=== PATIENT | female | born 1960 ===

== ENCOUNTER 2017-07-26 18:24 | Emergency (ER) | payer SELFPAY ==
[2017-07-26 18:30] VITALS: BP 130/87; PULSE 89; RESP 20; TEMP 97.8; O2SAT 98
[2017-07-26] MEDS ORDERED: Bacitracin 500 Units/gm Oint Foilpak UD TOP ONE (18:56)
[2017-07-26] MEDS ORDERED: Lidocaine 1% Inj (20ml) INFIL ONE (18:56)
[2017-07-26] MEDS ORDERED: Bacitracin 500 Units/gm Oint Foilpak UD ONE ×2 (19:11→19:50)
[2017-07-26] MEDS ORDERED: Lidocaine 1% Inj (20ml) ONE (19:11)
--- NOTE | 2017-07-26 19:20 | C.PDOC ---
History Of Present Illness 57 year old female presents to the ED due to a laceration to left hand just prior to arrival. Patient reports she was cutting fish when the knife slipped and cut her left second finger. Patient denies change in sensation. Patient is up to date on tetanus. Patient is right hand dominant. Time Seen by Provider: 07/26/17 18:32 Chief Complaint (Nursing): Abnormal Skin Integrity History Per: Patient History/Exam Limitations: no limitations Onset/Duration Of Symptoms: Mins Current Symptoms Are (Timing): Still Present Location Of Injury: Left: Hand (laceration to second finger) Quality Of Symptoms: Other (laceration) Past Medical History Reviewed: Historical Data, Nursing Documentation, Vital Signs Vital Signs: Last Vital Signs Temp 97.8 F 07/26/17 18:29 Pulse 89 07/26/17 18:29 Resp 20 07/26/17 18:29 BP 130/87 07/26/17 18:29 Pulse Ox 98 07/26/17 19:47 - Medical History PMH: No Chronic Diseases Family History: States: No Known Family Hx - Social History Hx Alcohol Use: No Hx Substance Use: No - Immunization History Hx Tetanus Toxoid Vaccination: Yes (LAST YEAR 2015 PER PATIENT) Hx Influenza Vaccination: No Hx Pneumococcal Vaccination: No Review Of Systems Except As Marked, All Systems Reviewed And Found Negative. Constitutional: Negative for: Fever Skin: Positive for: Other (laceration to left second finger) Physical Exam - Physical Exam Appears: Well, No Acute Distress Skin: Warm, Dry, Other ((+) U shaped 2cm laceration to dorsal aspect of second finger on left hand) Head: Atraumatic, Normacephalic Eye(s): bilateral: Normal Inspection, EOMI Nose: Normal Oral Mucosa: Moist Chest: Symmetrical Respiratory: No Accessory Muscle Use Extremity: Normal ROM, Capillary Refill (<2 sec), No Swelling Pulses: Left Radial: Normal, Right Radial: Normal Neurological/Psych: Oriented x3, Normal Speech ED Course And Treatment O2 Sat by Pulse Oximetry: 98 (RA) Progress Note: Plan: --Bacitracin. --600mg Ibuprofen. --10mL Lidocaine 1%. Discussed wound care. Finger splint applied by RN. Procedure: Wound Repair - Time Performed Time Performed: 19:26 - Procedure Procedure: Wound Repair: stiches - Consent Obtained Consent obtained: Verbal - Performed by Performed by: Mid-level Provider - Indications Indication(s):: Laceration - Location Location:: Left, Hand Finger:: Left, Index Dimensions Length cm: 2cm - Anesthetic Technique Anesthetic Technique: Local Local/Regional Anesthetic:: Lidocaine 1% - Complexity Complexity:: Simple (one layer) - Wound repair method Sutures:: # (3), Size (5:0), Type (nylon), Technique (simple interrupted) - Patient tolerated procedure Patient Tolerated Procedure:: Well Disposition - Disposition Disposition: HOME/ ROUTINE Disposition Time: 19:46 Condition: STABLE Additional Instructions: Keep area clean and dry. Wound check in 2 days. Suture removal in 10 days. Instructions: Laceration (ED) Forms: [employer] (Macedonian) Print Language: LUXEMBOURGISH - Clinical Impression Clinical Impression: Laceration of finger - Scribe Statement The provider has reviewed the documentation as recorded by the Jw Balbuena Provider Attestation All medical record entries made by the Jw were at my direction and personally dictated by me. I have reviewed the chart and agree that the record accurately reflects my personal performance of the history, physical exam, medical decision making, and the department course for this patient. I have also personally directed, reviewed, and agree with the discharge instructions and disposition.
== END 2017-07-26 19:55 | disposition home or self-care (01) ==
LOC: C.ER 18:24
DX: S61.211A Laceration without foreign body of left index finger without damage to nail, initial encounter (principal); W26.0XXA Contact with knife, initial encounter; Y93.89 Activity, other specified

== ENCOUNTER 2017-07-28 13:21 | Emergency (ER) | payer SELFPAY ==
[2017-07-28 13:49] VITALS: BP 128/70; PULSE 70; RESP 16; TEMP 97.2; O2SAT 97
--- NOTE | 2017-07-28 14:20 | C.PDOC ---
History Of Present Illness 57yo female, presents to ED for a wound check. Patient was seen in this facility 2 days ago and had sutures placed to her left 2nd digit. She denies any drainage, redness to the area. No complaints. Chief Complaint (Nursing): Wound Check History Per: Patient History/Exam Limitations: no limitations Onset/Duration Of Symptoms: Days Ago (2) Current Symptoms Are (Timing): Still Present Location Of Injury: Left: Hand Quality Of Symptoms: denies: Swollen, Draining Past Medical History Reviewed: Historical Data, Nursing Documentation, Vital Signs Vital Signs: Last Vital Signs Temp 97.2 F L 07/28/17 13:47 Pulse 70 07/28/17 13:47 Resp 16 07/28/17 13:47 BP 128/70 07/28/17 13:47 Pulse Ox 97 07/28/17 14:19 - Medical History PMH: No Chronic Diseases Surgical History: No Surg Hx Family History: States: No Known Family Hx - Social History Hx Alcohol Use: No Hx Substance Use: No - Immunization History Hx Tetanus Toxoid Vaccination: Yes (LAST YEAR 2015 PER PATIENT) Hx Influenza Vaccination: No Hx Pneumococcal Vaccination: No Review Of Systems Musculoskeletal: Positive for: Hand Pain (suture wound to left 2nd digit) Physical Exam - Physical Exam Appears: Well, No Acute Distress Skin: Normal Color Extremity: Normal ROM, No Deformity, No Swelling, Other (healing sutured wound to dorsal PIP of left 2nd digit. no signs of infection noted.) ED Course And Treatment O2 Sat by Pulse Oximetry: 97 (RA) Pulse Ox Interpretation: Normal Progress Note: Patient with well healing suture site. Stable for discharge home. Disposition Counseled Patient/Family Regarding: Need For Followup - Disposition Referrals: [facility] at [facility] [Outside] Disposition: HOME/ ROUTINE Disposition Time: 14:00 Condition: STABLE Additional Instructions: Have sutures removed after 5 days, continue to keep the wound clean. Clean with regular soap and water. Instructions: Acute Wound Care (ED) Forms: [facility] (Frisian), Work Excuse Print Language: TAJIK - Clinical Impression Clinical Impression: Visit for wound check - PA / KEY ACCOUNT EXECUTIVE / Resident Statement MD/DO has reviewed & agrees with the documentation as recorded. - Scribe Statement The provider has reviewed the documentation as recorded by the Jw Arellano Provider Attestation: All medical record entries made by the Scribe were at my direction and personally dictated by me. I have reviewed the chart and agree that the record accurately reflects my personal performance of the history, physical exam, medical decision making, and the department course for this patient. I have also personally directed, reviewed, and agree with the discharge instructions and disposition.
== END 2017-07-28 14:55 | disposition home or self-care (01) ==
LOC: C.ER 13:21
DX: Z48.00 Encounter for change or removal of nonsurgical wound dressing (principal)

== ENCOUNTER 2017-08-03 14:45 | Emergency (ER) | payer SELFPAY ==
[2017-08-03 15:16] VITALS: BMI 36.6
[2017-08-03 15:18] VITALS: RESP 18; TEMP 97.4
[2017-08-03 16:23] VITALS: BP 109/72; PULSE 72; O2SAT 99
--- NOTE | 2017-08-03 16:29 | C.PDOC ---
History Of Present Illness 57 year old female presents to the ED for a wound check. Patient was evaluated in this ED on 07/26 for a finger laceration which she sustained from a knife. Patient had sutures placed in the ED. Patient states one of the sutures fell out on its own. Patient denies fever, chills, discharge. Time Seen by Provider: 08/03/17 15:58 Chief Complaint (Nursing): Wound Check History Per: Patient History/Exam Limitations: no limitations Onset/Duration Of Symptoms: Days Ago Current Symptoms Are (Timing): Still Present Location Of Injury: Left: Hand Quality Of Symptoms: denies: Painful, Swollen, Draining Additional History Per: Patient Past Medical History Reviewed: Historical Data, Nursing Documentation, Vital Signs Vital Signs: Last Vital Signs Temp 97.4 F L 08/03/17 15:17 Pulse 72 08/03/17 16:22 Resp 18 08/03/17 16:22 BP 109/72 08/03/17 16:22 Pulse Ox 99 08/03/17 17:15 - Medical History PMH: No Chronic Diseases Surgical History: No Surg Hx Family History: States: Unknown Family Hx - Social History Hx Alcohol Use: No Hx Substance Use: No - Immunization History Hx Tetanus Toxoid Vaccination: Yes (LAST 2015 PER PATIENT) Hx Influenza Vaccination: No Hx Pneumococcal Vaccination: No Review Of Systems Skin: Positive for: Other (wound check ) Physical Exam - Physical Exam Appears: Non-toxic, No Acute Distress Skin: Normal Color, Warm, Dry, Other (healing sutured wound to lateral PIP of left 2nd digit. u-shaped healing incision with sutures intact on either end. none in middle. no erythema, warmth or signs of infection noted ) Extremity: Normal ROM, Capillary Refill (less than 2 seconds ) Neurological/Psych: Oriented x3, Normal Speech, Normal Cognition, Normal Sensation Gait: Steady ED Course And Treatment O2 Sat by Pulse Oximetry: 99 (on RA ) Pulse Ox Interpretation: Normal Progress Note: sutures removed without difficulty. slight dehiscence noted at one end. steri strips applied. Disposition - Disposition Disposition: HOME/ ROUTINE Disposition Time: 16:26 Condition: STABLE Additional Instructions: Puede lavarse las warren y baarse normalmente con las esteri strips puestas. Se caen solos en unos pocos de paz, permitiendo que la herida termine de cicatrizar. You can wash your hands and bathe as normal with the steri strips on. They will fall off on their own in a few days, allowing wound to finish healing Instructions: Stitches Removal (ED), Steristrips (ED) Forms: [employer] (French) Print Language: DOMINICAN - Clinical Impression Clinical Impression: Encounter for removal of sutures - PA / OUTREACH ASSISTANT / Resident Statement MD/DO has reviewed & agrees with the documentation as recorded. - Scribe Statement The provider has reviewed the documentation as recorded by the Scribe (Marielena Hall) All medical record entries made by the Scribe were at my direction and personally dictated by me. I have reviewed the chart and agree that the record accurately reflects my personal performance of the history, physical exam, medical decision making, and the department course for this patient. I have also personally directed, reviewed, and agree with the discharge instructions and disposition.
== END 2017-08-03 16:34 | disposition home or self-care (01) ==
LOC: C.ER 14:45
DX: Z48.02 Encounter for removal of sutures (principal)

== ENCOUNTER 2018-01-23 15:57 | Emergency (ER) | payer OTHER ==
[2018-01-23 15:58] VITALS: BMI 36.6
[2018-01-23 16:23] VITALS: RESP 20
[2018-01-23 16:59] LABS: BASO # 0.1 K/uL (0.0-0.2); BASO % 0.7 % (0.0-2.0); EOS # 0.2 K/uL (0.0-0.7); HEMOGLOBIN 12.8 g/dL (11.0-16.0); LYMPH % 27.8 % (20.0-40.0); MEAN CELL VOLUME 84.7 fL (81.0-99.0); MEAN CORPUSCULAR HEMOGLOBIN 28.8 pg (27.0-31.0); MEAN PLATELET VOLUME 8.5 fL (7.2-11.7); MONO # 0.8 K/uL (0.0-0.8); MONO % 6.9 % (0.0-10.0); NEUT # 6.8 K/uL (1.8-7.0); NEUT % 62.6 % (50.0-75.0); RBC 4.47 Mil/uL (3.80-5.20); RED CELL DISTRIBUTION WIDTH 15.2 % (11.5-14.5); WHITE BLOOD COUNT 10.9 K/uL (4.8-10.8)
[2018-01-23 17:17] LABS: ALT/SGPT 51 U/L (9-52); AST/SGOT 36 U/L (14-36); BLOOD UREA NITROGEN 9 mg/dL (7-17); CALCIUM 8.8 mg/dl (8.6-10.4); GFR AFRICAN-AMERICAN > 60; GFR NON-AFRICAN AMERICAN > 60; LIPASE 67 U/L (23-300)
[2018-01-23 17:28] LABS: SQUAMOUS EPITHIAL 1 /hpf (0-5); URINE BILIRUBIN NEGATIVE (NEGATIVE); URINE BLOOD 1+ (NEGATIVE); URINE CLARITY Clear (Clear); URINE COLOR Yellow (YELLOW); URINE GLUCOSE (UA) NORMAL (Normal); URINE LEUKOCYTE ESTERASE NEG Leu/uL (Negative); URINE PROTEIN NEGATIVE (NEGATIVE); URINE UROBILINOGEN NORMAL mg/dL (0.2-1.0)
--- NOTE | 2018-01-23 18:14 | CT ---
EXAM: CT Head Without Intravenous Contrast EXAM DATE/TIME: 01/23/2018 4:48 PM CLINICAL HISTORY: 57 years old, female; Signs and symptoms; Dizziness TECHNIQUE: Axial computed tomography images of the head/brain without intravenous contrast. All CT scans at this facility use one or more dose reduction techniques, viz.: automated exposure control; ma/kV adjustment per patient size (including targeted exams where dose is matched to indication; i.e. head); or iterative reconstruction technique. Coronal and sagittal reformatted images were created and reviewed. COMPARISON: There are no prior studies for comparison. FINDINGS: Brain and ventricles: Ventricles are normal in size and configuration. There is no midline shift. There are no intra-axial or extra-axial mass lesions or areas of hemorrhage. There are no abnormal fluid collections. Harrison-white differentiation is maintained. Bones: Cranial vault is intact. Soft tissues: unremarkable Sinuses: There is no acute sinusitis. Ears and mastoids: Middle ears and mastoids are unremarkable Orbits: Orbital contents are unremarkable. IMPRESSION: No acute intracranial abnormality
--- NOTE | 2018-01-23 18:30 | C.PDOC ---
History Of Present Illness 57 y/o female presents to the ED complaining of a generalized headache with gradual onset over the past few days. No thunder clap onset. Of note, patient states this is not the worst headache of her life. She denies any fever, chills , neck pain/stiffness, chest pain, or SOB. Associated with a non-productive cough and dizziness (described as room spinning) for the past 2 days. Her dizziness has not been relieved with Dramamine. Patient reports having similar symptoms intermittently for the past 3 months. Time Seen by Provider: 01/23/18 16:33 Chief Complaint (Nursing): Dizziness/Lightheaded History Per: Patient History/Exam Limitations: no limitations Onset/Duration Of Symptoms: Days Current Symptoms Are (Timing): Still Present Past Medical History Reviewed: Historical Data, Nursing Documentation, Vital Signs Vital Signs: Last Vital Signs Temp 98.6 F 01/23/18 18:44 Pulse 70 01/23/18 18:44 Resp 20 01/23/18 18:44 BP 118/78 01/23/18 18:44 Pulse Ox 96 01/23/18 18:46 - Medical History PMH: Arthritis Family History: States: Unknown Family Hx - Social History Hx Alcohol Use: Yes Hx Substance Use: No - Immunization History Hx Tetanus Toxoid Vaccination: Yes (2016) Hx Influenza Vaccination: No Hx Pneumococcal Vaccination: No Review Of Systems Except As Marked, All Systems Reviewed And Found Negative. Neurological: Positive for: Headache, Dizziness Physical Exam - Physical Exam Appears: Non-toxic, No Acute Distress Skin: Normal Color, Warm, Dry Head: Atraumatic, Normacephalic Eye(s): bilateral: Normal Inspection, PERRL, EOMI Nose: Normal Oral Mucosa: Moist Neck: Normal ROM, Supple, Other (No meningeal signs) Chest: Symmetrical Cardiovascular: Rhythm Regular, No Murmur Respiratory: Normal Breath Sounds, No Rales, No Rhonchi, No Wheezing Gastrointestinal/Abdominal: Soft, No Tenderness, No Distention Extremity: Bilateral: Atraumatic, Normal Color And Temperature, Normal ROM Pulses: Left Dorsalis Pedis: Normal, Right Dorsalis Pedis: Normal Neurological/Psych: Oriented x3, Normal Speech, Normal Cranial Nerves, Cerebellar Signs (normal), Normal Motor, Normal Sensation, Other (No focal deficits) Gait: Steady ED Course And Treatment - Laboratory Results Result Diagrams: 01/23/18 16:56 01/23/18 16:56 ECG: Interpreted By Me, Viewed By Me ECG Rhythm: Sinus Rhythm (at 79 bpm, with normal intervals, normal axis, no ST/ T wave abnormalities) O2 Sat by Pulse Oximetry: 96 (RA) Pulse Ox Interpretation: Normal Medical Decision Making Medical Decision Making: Assessment: Dizziness, Headache Initial Plan: --EKG --CMP --CBC --Lipase --Troponin I --UA --Chest x-ray --Meclizine 25 mg PO --Tylenol 975 mg PO --Zithro 500 mg PO --Zofran 4 mg IV --CT Head w/o contrast CXR preliminary reading shows (+) interstitial changes, low lung volumes, poor respiratory effort. Labs reviewed, no clinically significant abnormalities. Patient will be discharged home. Counseled regarding dx of dizziness and bronchitis. Advised to f/u with PMD in 1-2 days. Disposition Counseled Patient/Family Regarding: Studies Performed, Diagnosis, Need For Followup, Rx Given - Disposition Referrals: [facility] [Outside] Disposition: HOME/ ROUTINE Disposition Time: 18:28 Condition: IMPROVED Additional Instructions: follow up with your doctor in 2 days call to make an appointment take medications as prescribed return to hospital if symptoms worsens or progress Prescriptions: Azithromycin [Zithromax] 250 mg PO DAILY #4 tab Meclizine [Meclizine*] 25 mg PO TID PRN #15 tab PRN Reason: Dizziness Ondansetron ODT [Zofran ODT] 4 mg PO TID PRN #12 odt PRN Reason: Nausea/Vomiting Instructions: Vertigo (a Type of Dizziness) (DC), Acute Bronchitis Forms: Gen Discharge Inst Paraguayan, [facility] (Paraguayan) - POA Present On Arrival: None - Clinical Impression Clinical Impression: Dizziness, Bronchitis - Scribe Statement The provider has reviewed the documentation as recorded by the Scribe (Kourtney Sotelo) Provider Attestation: All medical record entries made by the Scribe were at my direction and personally dictated by me. I have reviewed the chart and agree that the record accurately reflects my personal performance of the history, physical exam, medical decision making, and the department course for this patient. I have also personally directed, reviewed, and agree with the discharge instructions and disposition.
[2018-01-23 18:45] VITALS: BP 118/78; PULSE 70; TEMP 98.6; O2SAT 96
--- NOTE | 2018-01-24 08:13 | RAD ---
Chest x-ray two views History: Chest pain. Comparison: None available. Findings: Mild venous congestion. Right hilar prominence. Patchy increased markings at left lung base. Tortuous aorta. Mild cardiomegaly. Degenerative changes spine. Impression: Mild venous congestion. Right hilar prominence. Patchy increased markings at left lung base. Tortuous aorta. Mild cardiomegaly.
--- NOTE | 2018-01-26 13:40 | CARD ---
APPROVED REPORT EKG Measurement Heart [id number] <Conclusion> Normal sinus rhythm Normal ECG
== END 2018-01-23 18:45 | disposition home or self-care (01) ==
LOC: C.ER 15:57
DX: J40 Bronchitis, not specified as acute or chronic (principal); R42 Dizziness and giddiness
CPT/HCPCS: 70450; 71046; 80053; 81001; 82948; 83690; 84484; 85025; 96374; 99285; J2405

== ENCOUNTER 2018-03-13 14:34 | Emergency (ER) | payer OTHER ==
[2018-03-13 14:41] VITALS: BMI 28.7
[2018-03-13 14:42] VITALS: BP 114/73; PULSE 61; RESP 20; TEMP 98.7; O2SAT 97
[2018-03-13] MEDS ORDERED: Lidocaine 2% Inj (20ml) INFIL ONE (15:11)
[2018-03-13] MEDS ORDERED: Lidocaine 2% MPF (5 ml) Inj ONE (15:23)
--- NOTE | 2018-03-13 15:47 | C.PDOC ---
History Of Present Illness 58 year old female patient comes in for evaluation of right buttock painful mass , redness gradually developed for past 5 days. Patient reports similar symptoms in the past, but were resolved without intervention. Otherwise, Patient denies fever, chills, recent illness, known trauma or injury, abdominal pain, nausea, and vomiting change in BM. Ambulate to Ed for evaluation, not in any apparent distress. Time Seen by Provider: 03/13/18 15:01 Chief Complaint (Nursing): Abnormal Skin Integrity History Per: Patient History/Exam Limitations: no limitations Onset/Duration Of Symptoms: Days, Gradual Current Symptoms Are (Timing): Still Present Past Medical History Reviewed: Historical Data, Nursing Documentation, Vital Signs Vital Signs: Last Vital Signs Temp 98.7 F 03/13/18 14:41 Pulse 61 03/13/18 14:41 Resp 20 03/13/18 14:41 BP 114/73 03/13/18 14:41 Pulse Ox 97 03/13/18 15:52 - Medical History PMH: Arthritis Family History: States: Unknown Family Hx - Social History Hx Alcohol Use: Yes Hx Substance Use: No - Immunization History Hx Tetanus Toxoid Vaccination: Yes (2016) Hx Influenza Vaccination: No Hx Pneumococcal Vaccination: No Review Of Systems Except As Marked, All Systems Reviewed And Found Negative. Constitutional: Negative for: Fever, Chills Gastrointestinal: Negative for: Nausea, Vomiting Musculoskeletal: Negative for: Other (abdominal pain) Physical Exam - Physical Exam Appears: Well, Non-toxic, No Acute Distress Skin: Normal Color, Warm, Other (Right gluteal tender mass 3 cm diameter, (+) erythema, (+) flactualnce, No proximal streaking.) Head: Normacephalic Eye(s): bilateral: PERRL Gastrointestinal/Abdominal: Soft, No Tenderness, No Distention, No Guarding Back: No CVA Tenderness Extremity: Normal ROM, No Pedal Edema, No Swelling ED Course And Treatment O2 Sat by Pulse Oximetry: 97 (RA) Pulse Ox Interpretation: Normal Progress Note: On re-eavl, pt is afebrile, hemodynamicaly stable. NO-toxic. Abd: benign, (-) guarding, (-) rebound. back: (-) CVA tenderness. Skin: exam c /w Right gluteal abscess s/p I&D. Pt advised. ref. to f/u with ED in 2 days for re-eval. - Incision & Drainage Of Abscess Anesthesia: Lidocaine 2%, With Epi Prep Used: Betadine Procedure: Incised W/Scalpel Blade#: (11), Drained Pus, Irrigated Cavity W/ Saline (10ml), Probed To Break Up Loculations, Packed W/Gauze Disposition Counseled Patient/Family Regarding: Diagnosis, Need For Followup, Rx Given - Disposition Referrals: [facility] at [facility] [Outside] Disposition: HOME/ ROUTINE Disposition Time: 15:46 Condition: STABLE Additional Instructions: keep clean Take medication as prescribed Return to ED in 2 days for wound check. Return at any time if any worsening or new changes. Prescriptions: Doxycycline Hyclate [Doryx] 100 mg PO BID #14 cap Instructions: Skin Abscess, Abscess Incision and Drainage Forms: [employer] (Czech) Print Language: GHANAIAN - Clinical Impression Clinical Impression: Abscess - PA / OINTMENT MILL TENDER / Resident Statement / has reviewed & agrees with the documentation as recorded. - Scribe Statement The provider has reviewed the documentation as recorded by the Jw Lowery Do All medical record entries made by the Scribe were at my direction and personally dictated by me. I have reviewed the chart and agree that the record accurately reflects my personal performance of the history, physical exam, medical decision making, and the department course for this patient. I have also personally directed, reviewed, and agree with the discharge instructions and disposition.
--- NOTE | 2018-03-13 15:47 | C.PDOC ---
History Of Present Illness 58 year old female patient comes in for evaluation of right buttock pain and swelling for past 5 days. Patient reports similar symptoms in the past, but were resolved without intervention. Patient denies fever, chills, abdomen pain, nausea, and vomiting. Time Seen by Provider: 03/13/18 15:01 Chief Complaint (Nursing): Abnormal Skin Integrity History Per: Patient History/Exam Limitations: no limitations Onset/Duration Of Symptoms: Days, Gradual Current Symptoms Are (Timing): Still Present Past Medical History Reviewed: Historical Data, Nursing Documentation, Vital Signs Vital Signs: Last Vital Signs Temp 98.7 F 03/13/18 14:41 Pulse 61 03/13/18 14:41 Resp 20 03/13/18 14:41 BP 114/73 03/13/18 14:41 Pulse Ox 97 03/13/18 15:47 - Medical History PMH: Arthritis Family History: States: Unknown Family Hx - Social History Hx Alcohol Use: Yes Hx Substance Use: No - Immunization History Hx Tetanus Toxoid Vaccination: Yes (2015) Hx Influenza Vaccination: No Hx Pneumococcal Vaccination: No ED Course And Treatment O2 Sat by Pulse Oximetry: 97 Disposition - Disposition Forms: [email or web address] (Korean)
== END 2018-03-13 15:53 | disposition home or self-care (01) ==
LOC: C.ER 14:34
DX: L02.31 Cutaneous abscess of buttock (principal)

== ENCOUNTER 2018-03-14 16:24 | Observation (INO) | payer OTHER ==
[2018-03-14 16:24] VITALS: BMI 28.7
--- NOTE | 2018-03-14 16:50 | C.PDOC ---
History Of Present Illness 58 year old female presents to the ED for an evaluation of abscess to right buttock. Patient was seen yesterday in the ED due to tender mass and abscess, I &D done and packing placed. Patient complains of increased pain, swelling, blood oozing, and subjective fever overnight. Time Seen by Provider: 03/14/18 16:36 Chief Complaint (Nursing): Wound Check History Per: Patient History/Exam Limitations: no limitations Onset/Duration Of Symptoms: Abscess Location Of Injury: Right: Buttock Quality Of Symptoms: Painful Past Medical History Reviewed: Historical Data, Nursing Documentation, Vital Signs Vital Signs: Last Vital Signs Temp 98.2 F 03/14/18 16:30 Pulse 96 H 03/14/18 16:30 Resp 18 03/14/18 16:30 BP 109/72 03/14/18 16:30 Pulse Ox 99 03/14/18 19:23 - Medical History PMH: Arthritis, Bronchitis Other Surgeries: Hx of surgeries Family History: States: No Known Family Hx - Social History Hx Alcohol Use: No Hx Substance Use: No - Immunization History Hx Tetanus Toxoid Vaccination: Yes (2015) Hx Influenza Vaccination: No Hx Pneumococcal Vaccination: No Review Of Systems Constitutional: Positive for: Fever Skin: Positive for: Other (Swelling and pain to right buttock ) Physical Exam - Physical Exam Appears: Non-toxic, No Acute Distress Skin: Warm, Dry, Other (Diffused erythema and tenderness to right gluteus. Small incision noted in the mittle with packing inside. (-) flactuance) Head: Atraumatic, Normacephalic Eye(s): bilateral: PERRL Chest: Symmetrical Cardiovascular: Rhythm Regular Respiratory: Normal Breath Sounds, No Rales, No Rhonchi, No Wheezing Extremity: Normal ROM Neurological/Psych: Oriented x3, Normal Speech Gait: Steady ED Course And Treatment - Laboratory Results Result Diagrams: 03/14/18 17:20 03/14/18 17:20 Lab Interpretation: No Acute Changes O2 Sat by Pulse Oximetry: 99 (RA) Pulse Ox Interpretation: Normal - CT Scan/US CT abd/pelvis Other Rad Studies (CT/US): Radiology Report Reviewed CT/US Interpretation: EXAM: CT Abdomen and Pelvis With Intravenous Contrast. EXAM DATE/TIME: Exam ordered 03/14/2018 4:55 PM. CLINICAL HISTORY: 58 years old, female; Pain; Other: Rt gluteal abscess; Additional info: Right gluteal abscess. TECHNIQUE: Axial computed tomography images of the abdomen and pelvis with intravenous contrast. All CT. scans at this facility use at least one of these dose optimization techniques: automated exposure. control; mA and/ or kV adjustment per patient size (includes targeted exams where dose is matched to. clinical indication); or iterative reconstruction. Coronal and sagittal reformatted images were created and reviewed. CONTRAST: 100 mL of [id number] administered intravenously. COMPARISON: No relevant prior studies available. FINDINGS: Lung bases: Unremarkable. No mass. No consolidation. ABDOMEN: Liver: The liver is low in density. Gallbladder and bile ducts: Unremarkable. No calcified stones. No ductal dilation. Pancreas: There is an island of fat noted within the pancreatic head. It measures 1.2 cm by 0.8 x 1.3. cm. . No mass. No ductal dilation. Spleen: Unremarkable. No splenomegaly. Adrenals: Unremarkable. No mass. Kidneys and ureters: Unremarkable. No solid mass. No hydronephrosis. Stomach and bowel: Unremarkable. No obstruction. No mucosal thickening. PELVIS: Appendix: No findings to suggest acute appendicitis. Bladder: There is a small linear area of soft tissue thickening which extends from the posterior wall. of the proximal rectum into the presacral space. Inferior to this is a bubble of air noted within the. buttock amidst an area of prominent inflammation. Small bubble of air is noted within the bladder. Reproductive: Unremarkable as visualized. ABDOMEN and PELVIS: Intraperitoneal space: Unremarkable. No free air. No significant fluid collection. Bones/joints: No acute fracture. No dislocation. Soft tissues: There is edema noted within the subcutaneous fat of the right buttock. The edema. appears to involve the medial border of the gluteus alona muscle. Vasculature: Unremarkable. No abdominal aortic aneurysm. Lymph nodes: Unremarkable. No enlarged lymph nodes. IMPRESSION: 1. There is inflammation in the right buttock as described above with a small bubble of air consistent. with clinical history of abscess. No fluid collections seen. Small linear track extending from the. posterior wall of the rectum to the presacral space could represent inflammation but a fistula tract is. not excluded. 2. Hepatic steatosis. 3. Lipoma within the pancreas. Thank you for allowing us to participate in the care of your patient. Dictated and Authenticated by: Sayda Costello MD. 03/14/2018 7:37 PM Eastern Time ( [place] & [place]) Disposition - Disposition Disposition: HOME/ ROUTINE Disposition Time: 19:23 Condition: STABLE Forms: [facility] (Nigerian) - Clinical Impression Clinical Impression: Abscess, gluteal, right, Cellulitis and abscess of buttock - PA / CAR SUPPLIER / Resident Statement MD/DO has reviewed & agrees with the documentation as recorded. - Scribe Statement The provider has reviewed the documentation as recorded by the Scribe Olga Lidia Collins All medical record entries made by the Ivonneibbarry were at my direction and personally dictated by me. I have reviewed the chart and agree that the record accurately reflects my personal performance of the history, physical exam, medical decision making, and the department course for this patient. I have also personally directed, reviewed, and agree with the discharge instructions and disposition.
[2018-03-14] MEDS ORDERED: Sodium Chloride 0.9% 1,000 ML IV ONE (16:54)
[2018-03-14] MEDS ORDERED: Vancomycin 1 GM 1 GM/250 ML BAG IV SCH (17:00)
[2018-03-14 17:29] LABS: HEMOGLOBIN 12.1 g/dL (11.0-16.0); MEAN CELL VOLUME 85.9 fL (81.0-99.0); MEAN CORPUSCULAR HEMOGLOBIN 27.9 pg (27.0-31.0); MEAN CORPUSCULAR HGB CONC 32.4 g/dL (33.0-37.0); MEAN PLATELET VOLUME 8.6 fL (7.2-11.7); NEUT % 61.8 % (50.0-75.0); RBC 4.34 Mil/uL (3.80-5.20); RED CELL DISTRIBUTION WIDTH 15.7 % (11.5-14.5); WHITE BLOOD COUNT 10.2 K/uL (4.8-10.8)
[2018-03-14 17:30] LABS: BASO # 0.1 K/uL (0.0-0.2); BASO % 0.5 % (0.0-2.0); EOS # 0.2 K/uL (0.0-0.7); EOS % 1.7 % (0.0-4.0); LYMPH # 2.7 K/uL (1.0-4.3); LYMPH % 26.4 % (20.0-40.0); MONO % 9.6 % (0.0-10.0); NEUT # 6.3 K/uL (1.8-7.0); NRBC % 0.1 % (0.0-2.0)
[2018-03-14] MEDS: Vancomycin 1 gm/NS 200 ml 1 GM/200 ML BAG IVPB SCH (17:30)
[2018-03-14 17:34] LABS: SQUAMOUS EPITHIAL 2 /hpf (0-5); URINE BILIRUBIN NEGATIVE (NEGATIVE); URINE BLOOD 1+ (NEGATIVE); URINE CLARITY Clear (Clear); URINE COLOR Yellow (YELLOW); URINE GLUCOSE (UA) NORMAL (Normal); URINE LEUKOCYTE ESTERASE NEG Leu/uL (Negative); URINE PROTEIN NEGATIVE (NEGATIVE); URINE UROBILINOGEN NORMAL mg/dL (0.2-1.0)
[2018-03-14 17:50] LABS: ALB/GLOB RATIO 1.3 (1.0-2.1); ALBUMIN 4.2 g/dL (3.5-5.0); ALT/SGPT 38 U/L (9-52); AST/SGOT 19 U/L (14-36); BLOOD UREA NITROGEN 10 mg/dL (7-17); CALCIUM 8.8 mg/dl (8.6-10.4); GFR AFRICAN-AMERICAN > 60; GFR NON-AFRICAN AMERICAN > 60
[2018-03-14] MEDS ORDERED: Iodixanol 320 MG/ML 100 ML BOTTLE IV ONE (18:03)
[2018-03-14] MEDS ORDERED: Piperacillin/Tazobact 3.375 gm 100 ML IV STA (19:45)
[2018-03-14] MEDS ORDERED: Piperacillin/Tazobact 3.375 gm 100 ML IVPB ONE (20:08)
--- NOTE | 2018-03-14 20:31 | CP.PCM.HP ---
<Romina Clement - Last Filed: 03/14/18 21:13> History of Present Illness - History of Present Illness History of Present Illness: Medicine Note for Hospitalist Service CC: Right Buttock Pain HPI: This is a 58 year old female with PMHx of IGT, who presents to the ED with right buttock pain x 1 week. Patient reports she shaves her pubic hair regularly and last week she had an ingrown hair that started to become indurated and inflammed but the patient's daughter popped it and it healed on its own. Last week the patient also shaved between her buttocks with a new razor. She started to notice 5-6 days ago the area started to become itchy, warm to touch, and causing pain. She tried to pop it but was not able to. Patient was seen in the ED 1 day prior to admission for the same symptoms. A bedside I&D was performed and patient was discharged with Doxycycline x 7 days and was told to follow up for wound check in 1 -2 days. Patient presents today due to continued drainage, increase in intensity of pain and subjective fevers and chills. Denied any associated headache, chest pain, abdominal pain, n/v/d/c , or urinary symptoms. PMHx: IGT PSHx: Left 2nd digit laceration (sutured 2017), c section, umbilical hernia repair Meds: Denied All: Metamizole - RASH SHx: Denied any tobacco, alcohol, or illicit drug use. Lives at home with and daughter FHx: Admits to diabetes running in family PMD: none Code Status: Full Code POA: Serena () [phone] Present on Admission - Present on Admission Any Indicators Present on Admission: No Past Patient History - Past Social History Smoking Status: Never Smoked - PULMONARY Hx Bronchitis: Yes - MUSCULOSKELETAL/RHEUMATOLOGICAL Hx Arthritis: Yes - PSYCHIATRIC Hx Substance Use: No - SURGICAL HISTORY Hx Surgeries: Yes Hx Section: Yes (x3) Hx Herniorrhaphy: Yes - ANESTHESIA Hx Anesthesia: Yes Meds Allergies/Adverse Reactions: Allergies Allergy/AdvReac Type Severity Reaction Status Date / Time NOLOTIL Allergy Uncoded 03/14/18 16:33 Physical Exam - Constitutional Appears: No Acute Distress - Head Exam Head Exam: NORMAL INSPECTION, NORMOCEPHALIC - Eye Exam Eye Exam: EOMI, Normal appearance, PERRL. absent: Nystagmus, Scleral icterus Pupil Exam: NORMAL ACCOMODATION, PERRL - ENT Exam ENT Exam: Mucous Membranes Moist, Normal Exam - Neck Exam Neck exam: Positive for: Normal Inspection. Negative for: Lymphadenopathy, Tenderness, Thyromegaly - Respiratory Exam Respiratory Exam: Clear to Auscultation Bilateral, NORMAL BREATHING PATTERN. absent: Decreased Breath Sounds, Rhonchi, Wheezes - Cardiovascular Exam Cardiovascular Exam: REGULAR RHYTHM, RRR, +S1, +S2 - GI/Abdominal Exam GI & Abdominal Exam: Normal Bowel Sounds, Soft. absent: Distended, Tenderness - Rectal Exam Rectal Exam: Deferred - Exam Additional comments: noted prior ingrown hair, not erythamatous, healing well - Extremities Exam Extremities exam: Positive for: normal inspection, pedal pulses present. Negative for: pedal edema, tenderness - Back Exam Back exam: NORMAL INSPECTION Additional comments: right buttock, near the gluteal fold, 2cm by 2cm indurated, nonfluctuant mass, warm to touch, with scant bleeding on wound and dressing, no active drainage expelling from wound, 1cm incision noted - Neurological Exam Neurological exam: Alert, CN II-XII Intact, Oriented x3 - Psychiatric Exam Psychiatric exam: Normal Affect, Normal Mood - Skin Skin Exam: Dry, Intact, Normal Color, Warm Results - Vital Signs Recent Vital Signs: Last Vital Signs Temp 98.3 F 03/14/18 20:26 Pulse 70 03/14/18 20:26 Resp 17 03/14/18 20:26 BP 133/83 03/14/18 20:26 Pulse Ox 97 03/14/18 20:26 - Labs Result Diagrams: 03/14/18 17:20 03/14/18 17:20 Labs: Laboratory Results - last 24 hr 03/14/18 03/14/18 03/14/18 17:20 17:20 17:22 WBC 10.2 RBC 4.34 Hgb 12.1 Hct 37.3 MCV 85.9 MCH 27.9 MCHC 32.4 L RDW 15.7 H Plt Count 335 MPV 8.6 Neut % (Auto) 61.8 Lymph % (Auto) 26.4 Rush % (Auto) 9.6 Eos % (Auto) 1.7 Baso % (Auto) 0.5 Neut # (Auto) 6.3 Lymph # (Auto) 2.7 Rush # (Auto) 1.0 H Eos # (Auto) 0.2 Baso # (Auto) 0.1 Sodium 144 Potassium 4.2 Chloride 104 Carbon Dioxide 31 H Anion Gap 13 BUN 10 Creatinine 0.5 L Est GFR ( Amer) > 60 Est GFR (Non-Af Amer) > 60 Random Glucose 92 Calcium 8.8 Total Bilirubin 0.3 AST 19 ALT 38 Alkaline Phosphatase 107 Total Protein 7.5 Albumin 4.2 Globulin 3.2 Albumin/Globulin Ratio 1.3 Urine Color Yellow Urine Clarity Clear Urine pH 6.0 Ur Specific [place] 1.011 Urine Protein Negative Urine Glucose (UA) Normal Urine Ketones Negative Urine Blood 1+ H Urine Nitrate Negative Urine Bilirubin Negative Urine Urobilinogen Normal Ur Leukocyte Esterase Neg Urine WBC (Auto) 2 Urine RBC (Auto) 11 H Ur Squamous Epith Cells 2 Assessment & Plan - Assessment and Plan (Free Text) Plan: Right Gluteal Cellulitis and Abscess S/P bedside I&D 03/13 General Surgery consulted - Dr. Fermin - no surgical intervention at this time - Afebrile, no leukocytosis, no left shift; patient admits to subjective fevers and chills at home - CT Ab/Pelv- [facility] reading - unremarkable, pending official read Management: - Florastor, Zosyn, Vanco, f/u vanco trough - Tylenol, morphine PRN for pain - Wound culture ordered Lipoma within Pancreatic Head - Incidental finding on CT, measuring 1.2cm x 0.8cm x 1.3cm Hx IGT - Educated on the importance of diet, exercise, and weight loss - Follow up HGA1C Prophylactic Measures - GI PPX: Protonix, Florastor - DVT PPX: SCDs, HepQ12 DW Romina Pierson DO, PGY2 <Clem Bhardwaj - Last Filed: 03/15/18 06:16> Results - Vital Signs Recent Vital Signs: Last Vital Signs Temp 98.2 F 03/15/18 00:00 Pulse 85 03/15/18 00:00 Resp 20 03/15/18 00:00 BP 109/64 03/15/18 00:00 Pulse Ox 95 03/15/18 00:00 - Labs Result Diagrams: 03/14/18 17:20 03/14/18 17:20 Labs: Laboratory Results - last 24 hr 03/14/18 03/14/18 03/14/18 17:20 17:20 17:22 WBC 10.2 RBC 4.34 Hgb 12.1 Hct 37.3 MCV 85.9 MCH 27.9 MCHC 32.4 L RDW 15.7 H Plt Count 335 MPV 8.6 Neut % (Auto) 61.8 Lymph % (Auto) 26.4 [place] % (Auto) 9.6 Eos % (Auto) 1.7 Baso % (Auto) 0.5 Neut # (Auto) 6.3 Lymph # (Auto) 2.7 [place] # (Auto) 1.0 H Eos # (Auto) 0.2 Baso # (Auto) 0.1 PT INR APTT Sodium 144 Potassium 4.2 Chloride 104 Carbon Dioxide 31 H Anion Gap 13 BUN 10 Creatinine 0.5 L Est GFR ( Amer) > 60 Est GFR (Non-Af Amer) > 60 Random Glucose 92 Calcium 8.8 Total Bilirubin 0.3 AST 19 ALT 38 Alkaline Phosphatase 107 Total Protein 7.5 Albumin 4.2 Globulin 3.2 Albumin/Globulin Ratio 1.3 Urine Color Yellow Urine Clarity Clear Urine pH 6.0 Ur Specific [place] 1.011 Urine Protein Negative Urine Glucose (UA) Normal Urine Ketones Negative Urine Blood 1+ H Urine Nitrate Negative Urine Bilirubin Negative Urine Urobilinogen Normal Ur Leukocyte Esterase Neg Urine WBC (Auto) 2 Urine RBC (Auto) 11 H Ur Squamous Epith Cells 2 03/14/18 21:30 WBC RBC Hgb Hct MCV MCH MCHC RDW Plt Count MPV Neut % (Auto) Lymph % (Auto) [place] % (Auto) Eos % (Auto) Baso % (Auto) Neut # (Auto) Lymph # (Auto) [place] # (Auto) Eos # (Auto) Baso # (Auto) PT 12.7 H INR 1.2 APTT 33 Sodium Potassium Chloride Carbon Dioxide Anion Gap BUN Creatinine Est GFR ( Amer) Est GFR (Non-Af Amer) Random Glucose Calcium Total Bilirubin AST ALT Alkaline Phosphatase Total Protein Albumin Globulin Albumin/Globulin Ratio Urine Color Urine Clarity Urine pH Ur Specific [place] Urine Protein Urine Glucose (UA) Urine Ketones Urine Blood Urine Nitrate Urine Bilirubin Urine Urobilinogen Ur Leukocyte Esterase Urine WBC (Auto) Urine RBC (Auto) Ur Squamous Epith Cells Assessment & Plan - Date & Time Date: 03/15/18 (I have seen and examined the patient. I agree with the findings and plan of care as documented by Dr. Clement. Patient with cellulitis and abscess in buttock area. Consult to surgery. Christiane. Wound and blood culture. Monitor for acute changes.) Time: 06:15 Attending/Attestation - Attestation I have personally seen and examined this patient.: Yes I have fully participated in the care of the patient.: Yes I have reviewed all pertinent clinical information: Yes
--- NOTE | 2018-03-14 20:43 | CP.PCM.CON ---
History of Present Illness - History of Present Illness History of Present Illness: General Surgery Consult Note for Dr. Fermin 58F seen and evaluated at [facility] ED at bedside this evening. Pt came to the ED yesterday for right gluteal abscess with subjective fevers. States this started on when the area was itchy. Admits to shaving buttocks area with a new razor. By thursday the pain and fevers brought her to the ED. She had a previous small subprapubic abscess that her daughter popped at home and it has been asymptomatic since. The gluteal abscess was incised and drained and then packed in the ED. She was sent home on doxycycline. Pt returned today due to increased pain in the area, bleeding, and subjective fevers. She has taken the first dose of antibiotics and no over the counter medications for pain or fever. Nothing makes it better or worse. Denies chills, nausea, vomiting , diarrhea, SOB, Chest pain, or urinary symptoms. PMH: bone atrophy? PSH: umbilical hernia repair, ALL: nolotil Soc: denies t/a/d Review of Systems - Constitutional Constitutional: Fever. absent: Chills - EENT Eyes: absent: Blurred Vision, Change in Vision Ears: absent: Ear Discharge, Ear Pain Nose/Mouth/Throat: absent: Nasal Congestion, Nasal Discharge - Cardiovascular Cardiovascular: absent: Chest Pain, Dyspnea - Respiratory Respiratory: absent: Cough, Dyspnea - Gastrointestinal Gastrointestinal: absent: Abdominal Pain, Diarrhea, Nausea, Vomiting - Genitourinary Genitourinary: absent: Difficulty Urinating, Dysuria - Musculoskeletal Musculoskeletal: Arthralgias, Back Pain - Integumentary Integumentary: Bleeding Lesions, Changing Lesions, New Lesions, Skin Pain, Swelling, Wounds - Psychiatric Psychiatric: absent: Anxiety, Depression Past Patient History - Tetanus Immunizations Tetanus Immunization: Unknown - Past Social History Smoking Status: Never Smoked - PULMONARY Hx Bronchitis: Yes - MUSCULOSKELETAL/RHEUMATOLOGICAL Hx Arthritis: Yes - PSYCHIATRIC Hx Substance Use: No - SURGICAL HISTORY Hx Surgeries: Yes Hx Section: Yes (x3) Hx Herniorrhaphy: Yes - ANESTHESIA Hx Anesthesia: Yes Meds Allergies/Adverse Reactions: Allergies Allergy/AdvReac Type Severity Reaction Status Date / Time NOLOTIL Allergy Uncoded 03/14/18 16:33 - Medications Medications: Current Medications Vancomycin/Sodium Chloride (Vancomycin 1 Gm/Ns 200 Ml) 1 gm in 200 mls @ 133 mls/hr IVPB STAT STEPHANI PRN Reason: Protocol Stop: 03/19/18 17:01 Last Admin: 03/14/18 17:30 Dose: 133 mls/hr Physical Exam - Constitutional Appears: Well, Non-toxic, No Acute Distress - Head Exam Head Exam: ATRAUMATIC, NORMAL INSPECTION, NORMOCEPHALIC - Eye Exam Eye Exam: EOMI, Normal appearance - Respiratory Exam Respiratory Exam: Clear to Auscultation Bilateral, NORMAL BREATHING PATTERN - Cardiovascular Exam Cardiovascular Exam: REGULAR RHYTHM, +S1, +S2. absent: Systolic Murmur - GI/Abdominal Exam GI & Abdominal Exam: Normal Bowel Sounds, Soft. absent: Tenderness - Neurological Exam Neurological exam: Alert, Oriented x3 - Psychiatric Exam Psychiatric exam: Normal Affect, Normal Mood - Skin Additional comments: Right gluteal region indurated, erythematous, warm, w/ no fluctuance Incision 1cm w/ scant bleeding but no purulent drainage Results - Vital Signs Recent Vital Signs: Last Vital Signs Temp 98.3 F 03/14/18 20:26 Pulse 70 03/14/18 20:26 Resp 17 03/14/18 20:26 BP 133/83 03/14/18 20:26 Pulse Ox 97 03/14/18 20:26 - Labs Result Diagrams: 03/14/18 17:20 03/14/18 17:20 Labs: Laboratory Results - last 24 hr 03/14/18 03/14/18 03/14/18 17:20 17:20 17:22 WBC 10.2 RBC 4.34 Hgb 12.1 Hct 37.3 MCV 85.9 MCH 27.9 MCHC 32.4 L RDW 15.7 H Plt Count 335 MPV 8.6 Neut % (Auto) 61.8 Lymph % (Auto) 26.4 [place] % (Auto) 9.6 Eos % (Auto) 1.7 Baso % (Auto) 0.5 Neut # (Auto) 6.3 Lymph # (Auto) 2.7 [place] # (Auto) 1.0 H Eos # (Auto) 0.2 Baso # (Auto) 0.1 Sodium 144 Potassium 4.2 Chloride 104 Carbon Dioxide 31 H Anion Gap 13 BUN 10 Creatinine 0.5 L Est GFR ( Amer) > 60 Est GFR (Non-Af Amer) > 60 Random Glucose 92 Calcium 8.8 Total Bilirubin 0.3 AST 19 ALT 38 Alkaline Phosphatase 107 Total Protein 7.5 Albumin 4.2 Globulin 3.2 Albumin/Globulin Ratio 1.3 Urine Color Yellow Urine Clarity Clear Urine pH 6.0 Ur Specific [place] 1.011 Urine Protein Negative Urine Glucose (UA) Normal Urine Ketones Negative Urine Blood 1+ H Urine Nitrate Negative Urine Bilirubin Negative Urine Urobilinogen Normal Ur Leukocyte Esterase Neg Urine WBC (Auto) 2 Urine RBC (Auto) 11 H Ur Squamous Epith Cells 2 Assessment & Plan - Assessment and Plan (Free Text) Assessment: 58F w/ no significant PMH w/ right gluteal abscess and cellulitic changes s/p I& D on 03/13 Plan: C/w IV antibiotics C/w pain management Continue to monitor - patient currently afebrile w/ no elevated wbc Pending cultures No surgical intervention at this present time Further recs per Dr. Zander Richmond PGY1
[2018-03-14] MEDS ORDERED: Sodium Chloride 0.9% 1,000 ML IV SCH (20:45)
[2018-03-14 21:33] LABS: INR 1.2; PROTHROMBIN TIME 12.7 SECONDS (9.7-12.2)
[2018-03-14] MEDS: Saccharomyces Boulardi 250 mg Cap PO SCH (22:32)
[2018-03-15] MEDS: Piperacillin/Tazobact 3.375 GM in Sodium Chloride 100 ML IVPB SCH ×3 (03:10→20:38)
--- NOTE | 2018-03-15 06:26 | CT ---
Date of service: 03/14/2018 PROCEDURE: CT Abdomen and Pelvis with contrast HISTORY: Right gluteal abscess COMPARISON: None. TECHNIQUE: Contrast dose: 100 mL of Visipaque 320 intravenously. Axial and reformatted coronal and sagittal CT images of the abdomen and pelvis were obtained after IV contrast administration. Radiation dose: Total exam DLP = 1068.48 mGy-cm. This CT exam was performed using one or more of the following dose reduction techniques: Automated exposure control, adjustment of the mA and/or kV according to patient size, and/or use of iterative reconstruction technique. FINDINGS: LOWER THORAX: Unremarkable. LIVER: [id number] fatty liver infiltration is noted. No evidence of acute pathology or suspicious mass in the liver. GALLBLADDER AND BILE DUCTS: Unremarkable. PANCREAS: There is 1.2 x 0.8 x 1.3 centimeter fatty well defined focus in the pancreatic head likely represent benign lipoma. No evidence of enhancing mass lesion or dilated main pancreatic duct. SPLEEN: Unremarkable. ADRENALS: Unremarkable. No mass. KIDNEYS AND URETERS: Unremarkable. No hydronephrosis. No solid mass. VASCULATURE: Unremarkable. No aortic aneurysm. BOWEL: Unremarkable. No obstruction. No gross mural thickening. APPENDIX: Normal appendix. PERITONEUM: Unremarkable. No free fluid. No free air. LYMPH NODES: Unremarkable. No enlarged lymph nodes. BLADDER: Unremarkable. REPRODUCTIVE: Unremarkable. BONES: No acute fracture. OTHER FINDINGS: There is subcutaneous edema and fat stranding noted at the right buttock more prominent medially extending to the midline and contains small bubble of air. Findings consistent with the patient's history of right buttock abscess. There is no evidence of discrete drainable fluid collection. There is a linear shape density extending from the posterior wall of the rectum to the pre sacral space may represent also focal of inflammation however the possibility of fistula tract is not totally excluded. No evidence of discrete fluid collection in the pelvis. No evidence of free fluid in the pelvis. IMPRESSION: Subcutaneous inflammation at the right buttock contains small bubble of air likely represent infectious process and small sub centimeter abscess. No evidence of discrete drainable fluid collection in the right buttock. Small linear opacity extending from the posterior wall of the rectum to the pre sacral space may represent focal inflammatory changes or scar tissue. The possibility of fistula tract is not totally excluded. Otherwise no evidence of acute pathology in the abdomen and pelvis as described above. Preliminary report was submitted by [facility].
[2018-03-15 07:28] LABS: HEMOGLOBIN 12.2 g/dL (11.0-16.0); LYMPH # 1.5 K/uL (1.0-4.3); LYMPH % 13.1 % (20.0-40.0); MEAN CELL VOLUME 85.9 fL (81.0-99.0); MEAN CORPUSCULAR HEMOGLOBIN 28.4 pg (27.0-31.0); MEAN CORPUSCULAR HGB CONC 33.1 g/dL (33.0-37.0); MEAN PLATELET VOLUME 8.7 fL (7.2-11.7); MONO # 0.2 K/uL (0.0-0.8); MONO % 1.5 % (0.0-10.0); NEUT # 9.6 K/uL (1.8-7.0); NEUT % 85.4 % (50.0-75.0); RBC 4.28 Mil/uL (3.80-5.20); RED CELL DISTRIBUTION WIDTH 15.6 % (11.5-14.5); WHITE BLOOD COUNT 11.3 K/uL (4.8-10.8)
[2018-03-15 07:40] LABS: ALB/GLOB RATIO 1.2 (1.0-2.1); ALBUMIN 4.1 g/dL (3.5-5.0); ALT/SGPT 38 U/L (9-52); AST/SGOT 24 U/L (14-36); BLOOD UREA NITROGEN 9 mg/dL (7-17); CALCIUM 8.8 mg/dl (8.6-10.4); GFR AFRICAN-AMERICAN > 60; GFR NON-AFRICAN AMERICAN > 60
[2018-03-15] MEDS: Pantoprazole 20 mg EC Tab PO SCH (10:29)
[2018-03-15] MEDS: Saccharomyces Boulardi 250 mg Cap PO SCH ×2 (10:29→21:52)
[2018-03-15] MEDS: Vancomycin 1 gm/NS 200 ml 1 GM/200 ML BAG IVPB SCH ×3 (11:03→11:11)
--- NOTE | 2018-03-15 13:17 | CP.PCM.PN ---
Subjective - Date & Time of Evaluation Date of Evaluation: 03/15/18 Time of Evaluation: 11:20 - Subjective Subjective: PGY-[address] Umang Hall service Patient seen and examined at bedside. Patient states feeling much better. Patient says that she is now able to lie down in bed without any pain, compared to when she came to ED. Patient is still having some difficulty sitting down on the side where the incision is. Patient denies any drainage from the incision site. Patient denies fever, chills, chest pain, SOB, abdominal pain, nausea, vomiting, dysuria, lower extremity swelling. Objective - Vital Signs/Intake and Output Vital Signs (last 24 hours): Temp Pulse Resp BP Pulse Ox 98.7 F 73 20 110/66 95 03/15/18 08:00 03/15/18 08:00 03/15/18 08:00 03/15/18 08:00 03/15/18 08:00 Intake and Output: 03/15/18 03/15/18 06:59 18:59 Intake Total 490 Balance 490 - Medications Medications: Current Medications Acetaminophen (Tylenol 325mg Tab) 650 mg PO Q6 PRN PRN Reason: Pain, Mild (1-3) Heparin Sodium (Porcine) (Heparin) 5,000 units SC Q12 [facility] Last Admin: 03/15/18 10:29 Dose: 5,000 units Piperacillin Sod/Tazobactam (Sod 3.375 gm/ Sodium Chloride) 100 mls @ 200 mls/ hr IVPB Q8H STEPHANI PRN Reason: Protocol Last Admin: 03/15/18 11:03 Dose: 200 mls/hr Vancomycin/Sodium Chloride (Vancomycin 1 Gm/Ns 200 Ml) 1 gm in 200 mls @ 133 mls/hr IVPB Q24H STEPHANI PRN Reason: Protocol Stop: 03/20/18 12:01 Last Admin: 03/15/18 11:11 Dose: 133 mls/hr Morphine Sulfate (Morphine) 1 mg IVP Q6H PRN PRN Reason: Pain, severe (8-10) Pantoprazole Sodium (Protonix Ec Tab) 20 mg PO DAILY [facility] Last Admin: 03/15/18 10:29 Dose: 20 mg Pneumococcal Polyvalent Vaccine (Pneumovax 23 Vaccine) 0.5 ml IM .ONCE ONE Stop: 03/17/18 10:01 Saccharomyces Boulardii (Florastor) 250 mg PO Q12 [facility] Last Admin: 03/15/18 10:29 Dose: 250 mg - Labs Labs: 03/15/18 06:59 03/15/18 06:59 PT 12.7 SECONDS (9.7-12.2) H 03/14/18 21:30 INR 1.2 03/14/18 21:30 APTT 33 SECONDS (21-34) 03/14/18 21:30 - Constitutional Appears: Well, Non-toxic, No Acute Distress - Head Exam Head Exam: ATRAUMATIC, NORMAL INSPECTION, NORMOCEPHALIC - Eye Exam Eye Exam: EOMI, Normal appearance - ENT Exam ENT Exam: Mucous Membranes Moist, Normal Exam - Neck Exam Neck Exam: Full ROM, Normal Inspection - Respiratory Exam Respiratory Exam: Clear to Ausculation Bilateral, NORMAL BREATHING PATTERN. absent: Rales, Rhonchi, Wheezes - Cardiovascular Exam Cardiovascular Exam: REGULAR RHYTHM, +S1, +S2. absent: Gallop, Rubs, Murmur - GI/Abdominal Exam GI & Abdominal Exam: Soft, Normal Bowel Sounds. absent: Distended, Firm, Guarding, Tenderness - Extremities Exam Extremities Exam: Full ROM, Normal Inspection. absent: Joint Swelling, Pedal Edema, Tenderness - Back Exam Additional comments: right buttock, near the gluteal fold, 2cm by 2cm indurated, nonfluctuant mass, dry, clean, nonbloody, non purulent, 1cm incision noted. - Neurological Exam Neurological Exam: Alert, Awake - Psychiatric Exam Psychiatric exam: Normal Affect, Normal Mood - Skin Skin Exam: Intact, Normal Color Assessment and Plan - Assessment and Plan (Free Text) Plan: Right Gluteal Cellulitis and Abscess S/P bedside I&D 03/13 -03/15 Vitals signs stable, T: 98.7 - 03/15 WBC: 11.3 from 10.2 on previous day -patient asymptomatic, no drainage reported, pain is subsiding -Afebrile, no leukocytosis, no left shift; patient admits to subjective fevers and chills at home -03/14 Abdomen/pelvis CT * Subcut inflammation at the Rt buttock contains small bubble of air likely represent infectious process and small sub centimeter abscess. No evidence of discrete drainable fluid collection in the right buttock * small linear opacity extending from posterior wall of rectum to the presacral space may represent focal inflammatory changes or scar tissue. possibility of fistula tract is not totally excluded * no acute path in abdomen and pelvis as described above -Continue abx: * Zosyn 3.375gm IVPB Q8h * Vanco 1gm IVPB Q24 - Continue Florastor - f/u vanco trough - Tylenol, morphine PRN for pain - Wound culture F/U and sensitivities -Blood culture - no growth after 24 hour. F/U final report. - Possible D/C tomorrow with oral Abx. 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 Umang Gu, PGY-1
[2018-03-16] MEDS: Piperacillin/Tazobact 3.375 GM in Sodium Chloride 100 ML IVPB SCH ×3 (04:03→19:50)
[2018-03-16 07:28] LABS: BASO # 0.1 K/uL (0.0-0.2); BASO % 0.7 % (0.0-2.0); EOS # 0.1 K/uL (0.0-0.7); EOS % 0.9 % (0.0-4.0); HEMOGLOBIN 10.9 g/dL (11.0-16.0); LYMPH # 3.9 K/uL (1.0-4.3); MEAN CELL VOLUME 86.1 fL (81.0-99.0); MEAN CORPUSCULAR HEMOGLOBIN 28.2 pg (27.0-31.0); MEAN CORPUSCULAR HGB CONC 32.8 g/dL (33.0-37.0); MEAN PLATELET VOLUME 8.8 fL (7.2-11.7); MONO # 0.6 K/uL (0.0-0.8); MONO % 5.9 % (0.0-10.0); NEUT # 6.2 K/uL (1.8-7.0); NEUT % 56.5 % (50.0-75.0); RBC 3.87 Mil/uL (3.80-5.20); RED CELL DISTRIBUTION WIDTH 15.3 % (11.5-14.5); WHITE BLOOD COUNT 10.9 K/uL (4.8-10.8)
[2018-03-16 08:07] LABS: ALB/GLOB RATIO 1.2 (1.0-2.1); ALBUMIN 3.4 g/dL (3.5-5.0); ALT/SGPT 42 U/L (9-52); AST/SGOT 31 U/L (14-36); BLOOD UREA NITROGEN 11 mg/dL (7-17); CALCIUM 8.2 mg/dl (8.6-10.4); GFR AFRICAN-AMERICAN > 60; GFR NON-AFRICAN AMERICAN > 60
[2018-03-16] MEDS: Saccharomyces Boulardi 250 mg Cap PO SCH ×2 (10:07→21:51)
[2018-03-16] MEDS: Pantoprazole 20 mg EC Tab PO SCH (10:08)
[2018-03-16] MEDS: Vancomycin 1 gm/NS 200 ml 1 GM/200 ML BAG IVPB SCH (11:30)
--- NOTE | 2018-03-16 18:08 | CP.PCM.PN ---
Subjective - Date & Time of Evaluation Date of Evaluation: 03/16/18 Time of Evaluation: 09:45 - Subjective Subjective: PGY-[address] Umang Hall service Patient is seen and examined at bedside. Patient had no acute event overnight. Patient states pain in her right buttocks has improved, and patient is now able to sit down and walk, as well as rest comfortably in bed. Patient denies fevers , chills, SOB, chest pain, nausea, vomiting, diarrhea or constipation. Patient' s partner was at bedside. Patient was counseled on sitz bath and on hygiene. Objective - Vital Signs/Intake and Output Vital Signs (last 24 hours): Temp Pulse Resp BP Pulse Ox 98.0 F 70 20 119/75 96 03/16/18 15:00 03/16/18 15:00 03/16/18 15:00 03/16/18 15:00 03/16/18 15:00 Intake and Output: 03/16/18 03/16/18 06:59 18:59 Intake Total 650 690 Balance 650 690 - Medications Medications: Current Medications Acetaminophen (Tylenol 325mg Tab) 650 mg PO Q6 PRN PRN Reason: Pain, Mild (1-3) Heparin Sodium (Porcine) (Heparin) 5,000 units SC Q12 [facility] Last Admin: 03/16/18 10:07 Dose: 5,000 units Piperacillin Sod/Tazobactam (Sod 3.375 gm/ Sodium Chloride) 100 mls @ 200 mls/ hr IVPB Q8H STEPHANI PRN Reason: Protocol Last Admin: 03/16/18 12:55 Dose: 200 mls/hr Vancomycin/Sodium Chloride (Vancomycin 1 Gm/Ns 200 Ml) 1 gm in 200 mls @ 133 mls/hr IVPB Q24H STEPHANI PRN Reason: Protocol Stop: 03/20/18 12:01 Last Admin: 03/16/18 11:30 Dose: 133 mls/hr Morphine Sulfate (Morphine) 1 mg IVP Q6H PRN PRN Reason: Pain, severe (8-10) Pantoprazole Sodium (Protonix Ec Tab) 20 mg PO DAILY [facility] Last Admin: 03/16/18 10:08 Dose: 20 mg Pneumococcal Polyvalent Vaccine (Pneumovax 23 Vaccine) 0.5 ml IM .ONCE ONE Stop: 03/17/18 10:01 Saccharomyces Boulardii (Florastor) 250 mg PO Q12 [facility] Last Admin: 03/16/18 10:07 Dose: 250 mg - Labs Labs: 03/16/18 07:04 03/16/18 07:04 PT 12.7 SECONDS (9.7-12.2) H 03/14/18 21:30 INR 1.2 03/14/18 21:30 APTT 33 SECONDS (21-34) 03/14/18 21:30 - Constitutional Appears: Well, Non-toxic, No Acute Distress - Head Exam Head Exam: ATRAUMATIC, NORMAL INSPECTION, NORMOCEPHALIC - Eye Exam Eye Exam: EOMI, Normal appearance - ENT Exam ENT Exam: Mucous Membranes Moist, Normal Exam - Neck Exam Neck Exam: Full ROM, Normal Inspection - Respiratory Exam Respiratory Exam: Clear to Ausculation Bilateral, NORMAL BREATHING PATTERN. absent: Rales, Rhonchi, Wheezes - Cardiovascular Exam Cardiovascular Exam: REGULAR RHYTHM, +S1, +S2 - GI/Abdominal Exam GI & Abdominal Exam: Soft, Normal Bowel Sounds. absent: Distended, Firm, Guarding, Tenderness - Extremities Exam Extremities Exam: Full ROM, Normal Inspection. absent: Pedal Edema, Tenderness - Back Exam Back Exam: NORMAL INSPECTION - Neurological Exam Neurological Exam: Alert, Awake, Oriented x3 - Psychiatric Exam Psychiatric exam: Normal Affect, Normal Mood - Skin Skin Exam: Intact, Normal Color, Warm Assessment and Plan - Assessment and Plan (Free Text) Plan: Right Gluteal Cellulitis and Abscess S/P bedside I&D 03/13 -03/16 Vitals signs stable, T: 98.0 F - 03/16 WBC: 10.9 from 11.3 -patient asymptomatic, no drainage reported, pain is subsiding, able to sit and walk without problem -03/14 Abdomen/pelvis CT * Subcut inflammation at the Rt buttock contains small bubble of air likely represent infectious process and small sub centimeter abscess. No evidence of discrete drainable fluid collection in the right buttock * small linear opacity extending from posterior wall of rectum to the presacral space may represent focal inflammatory changes or scar tissue. possibility of fistula tract is not totally excluded * no acute path in abdomen and pelvis as described above -Continue abx: * Zosyn 3.375gm IVPB Q8h (started 03/15) * Vanco 1gm IVPB Q24 (started 03/15) - Continue Florastor - f/u vanco trough - Tylenol, morphine PRN for pain - 03/16 - Wound culture shows gram positive cocci. - F/U sensitivities in order to determine if Patient could be D/C home tomorrow with PO abx. 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 Umang Gu, PGY-1
[2018-03-16 23:42] VITALS: TEMP 98.8
[2018-03-17] MEDS: Piperacillin/Tazobact 3.375 GM in Sodium Chloride 100 ML IVPB SCH ×2 (04:01→12:06)
[2018-03-17 07:33] VITALS: BP 107/71; PULSE 69; RESP 20; O2SAT 97
[2018-03-17 08:17] LABS: BASO # 0.1 K/uL (0.0-0.2); BASO % 0.8 % (0.0-2.0); EOS # 0.2 K/uL (0.0-0.7); EOS % 2.3 % (0.0-4.0); HEMOGLOBIN 12.4 g/dL (11.0-16.0); LYMPH # 3.3 K/uL (1.0-4.3); MEAN CELL VOLUME 85.2 fL (81.0-99.0); MEAN CORPUSCULAR HEMOGLOBIN 28.4 pg (27.0-31.0); MEAN CORPUSCULAR HGB CONC 33.3 g/dL (33.0-37.0); MEAN PLATELET VOLUME 8.8 fL (7.2-11.7); MONO # 0.6 K/uL (0.0-0.8); MONO % 6.8 % (0.0-10.0); NEUT # 5.2 K/uL (1.8-7.0); NEUT % 55.1 % (50.0-75.0); RBC 4.38 Mil/uL (3.80-5.20); RED CELL DISTRIBUTION WIDTH 15.5 % (11.5-14.5); WHITE BLOOD COUNT 9.4 K/uL (4.8-10.8)
[2018-03-17] MEDS ORDERED: Pneumococcal 23-Valent Vaccine IM ONE (10:00)
[2018-03-17] MEDS: Pantoprazole 20 mg EC Tab PO SCH (10:03)
[2018-03-17] MEDS: Saccharomyces Boulardi 250 mg Cap PO SCH (10:03)
--- NOTE | 2018-03-17 10:19 | CP.PCM.PCO ---
Physician Communication Note - Physician Communication Note Physician Communication Note: Please see above.
[2018-03-17] MEDS: Vancomycin 1 gm/NS 200 ml 1 GM/200 ML BAG IVPB SCH (12:07)
--- NOTE | 2018-03-17 15:32 | CP.PCM.DIS ---
Provider - Provider Date of Admission: 03/14/18 19:28 Attending physician: Mauri Munson DO Time Spent in preparation of Discharge (in minutes): 45 Diagnosis - Discharge Diagnosis (1) Abscess, gluteal, right Status: Acute Comment: Dr walden, consulted. no surgical intervention was done. Patient was given Vanco and zosyn. upon wound culture sensitivites, patient was discharged with clindamycin PO QID for 12 days and lactobacillus 1 tab BID. Hospital Course - Lab Results Lab Results: Micro Results 03/14/18 21:27 Abscess - Abscess Gram Stain - Final 03/14/18 21:27 Abscess - Abscess Wound Culture - Final Methicillin Resistant S Aureus 03/14/18 17:00 Blood Blood Culture - Preliminary NO GROWTH AFTER 48 HOURS 03/14/18 17:10 Blood Blood Culture - Preliminary NO GROWTH AFTER 48 HOURS 03/14/18 18:51 Urine Urine Culture - Final No Growth (<1,000 CFU/ML) Most Recent Lab Values WBC 9.4 K/uL (4.8-10.8) 03/17/18 08:09 RBC 4.38 Mil/uL (3.80-5.20) 03/17/18 08:09 Hgb 12.4 g/dL (11.0-16.0) 03/17/18 08:09 Hct 37.3 % (34.0-47.0) 03/17/18 08:09 MCV 85.2 fL (81.0-99.0) 03/17/18 08:09 MCH 28.4 pg (27.0-31.0) 03/17/18 08:09 MCHC 33.3 g/dL (33.0-37.0) 03/17/18 08:09 RDW 15.5 % (11.5-14.5) H 03/17/18 08:09 Plt Count 347 K/uL (130-400) 03/17/18 08:09 MPV 8.8 fL (7.2-11.7) 03/17/18 08:09 Neut % (Auto) 55.1 % (50.0-75.0) 03/17/18 08:09 Lymph % (Auto) 35.0 % (20.0-40.0) 03/17/18 08:09 Menard % (Auto) 6.8 % (0.0-10.0) 03/17/18 08:09 Eos % (Auto) 2.3 % (0.0-4.0) 03/17/18 08:09 Baso % (Auto) 0.8 % (0.0-2.0) 03/17/18 08:09 Neut # (Auto) 5.2 K/uL (1.8-7.0) 03/17/18 08:09 Lymph # (Auto) 3.3 K/uL (1.0-4.3) 03/17/18 08:09 Menard # (Auto) 0.6 K/uL (0.0-0.8) 03/17/18 08:09 Eos # (Auto) 0.2 K/uL (0.0-0.7) 03/17/18 08:09 Baso # (Auto) 0.1 K/uL (0.0-0.2) 03/17/18 08:09 PT 12.7 SECONDS (9.7-12.2) H 03/14/18 21:30 INR 1.2 03/14/18 21:30 APTT 33 SECONDS (21-34) 03/14/18 21:30 Sodium 143 mmol/L (132-148) 03/16/18 07:04 Potassium 3.8 mmol/L (3.6-5.2) 03/16/18 07:04 Chloride 108 mmol/L (98-107) H 03/16/18 07:04 Carbon Dioxide 25 mmol/L (22-30) 03/16/18 07:04 Anion Gap 13 (10-20) 03/16/18 07:04 BUN 11 mg/dL (7-17) 03/16/18 07:04 Creatinine 0.5 mg/dL (0.7-1.2) L 03/17/18 08:09 Est GFR ( Amer) > 60 03/16/18 07:04 Est GFR (Non-Af Amer) > 60 03/16/18 07:04 Random Glucose 100 mg/dL (65-105) 03/16/18 07:04 Hemoglobin A1c 5.9 % (4.2-6.5) 03/15/18 06:59 Calcium 8.2 mg/dl (8.6-10.4) L 03/16/18 07:04 Phosphorus 3.5 mg/dL (2.5-4.5) 03/17/18 08:09 Magnesium 2.2 mg/dL (1.6-2.3) 03/17/18 08:09 Total Bilirubin 0.3 mg/dL (0.2-1.3) 03/16/18 07:04 AST 31 U/L (14-36) 03/16/18 07:04 ALT 42 U/L (9-52) 03/16/18 07:04 Alkaline Phosphatase 92 U/L (38-126) 03/16/18 07:04 Total Protein 6.3 g/dL (6.3-8.3) 03/16/18 07:04 Albumin 3.4 g/dL (3.5-5.0) L 03/16/18 07:04 Globulin 2.9 gm/dL (2.2-3.9) 03/16/18 07:04 Albumin/Globulin Ratio 1.2 (1.0-2.1) 03/16/18 07:04 Urine Color Yellow (YELLOW) 03/14/18 17:22 Urine Clarity Clear (Clear) 03/14/18 17:22 Urine pH 6.0 (5.0-8.0) 03/14/18 17:22 Ur Specific Alexis 1.011 (1.003-1.030) 03/14/18 17:22 Urine Protein Negative mg/dL (NEGATIVE) 03/14/18 17:22 Urine Glucose (UA) Normal mg/dL (Normal) 03/14/18 17:22 Urine Ketones Negative mg/dL (NEGATIVE) 03/14/18 17:22 Urine Blood 1+ (NEGATIVE) H 03/14/18 17:22 Urine Nitrate Negative (NEGATIVE) 03/14/18 17:22 Urine Bilirubin Negative (NEGATIVE) 03/14/18 17:22 Urine Urobilinogen Normal mg/dL (0.2-1.0) 03/14/18 17:22 Ur Leukocyte Esterase Neg Marlon/uL (Negative) 03/14/18 17:22 Urine WBC (Auto) 2 /hpf (0-5) 03/14/18 17:22 Urine RBC (Auto) 11 /hpf (0-3) H 03/14/18 17:22 Ur Squamous Epith Cells 2 /hpf (0-5) 03/14/18 17:22 Vancomycin Trough < 5.0 ug/mL (5.0-10.0) L 03/17/18 08:09 - Hospital Course Hospital Course: This is a 58 year old female with PMHx of IGT, who presents to the ED with right buttock pain x 1 week. Patient reports she shaves her pubic hair regularly and last week she had an ingrown hair that started to become indurated and inflammed but the patient's daughter popped it and it healed on its own. Last week the patient also shaved between her buttocks with a new razor. She started to notice 5-6 days ago the area started to become itchy, warm to touch, and causing pain. She tried to pop it but was not able to. Patient was seen in the ED 1 day prior to admission for the same symptoms. A bedside I&D was performed and patient was discharged with Doxycycline x 7 days and was told to follow up for wound check in 1 -2 days. Patient presents today due to continued drainage, increase in intensity of pain and subjective fevers and chills. Denied any associated headache, chest pain, abdominal pain, n/v/d/c , or urinary symptoms. During hospitalization, General surgery Dr Walden was consulted, and no surgical intervention was advised at this time. Patient presented afebrile, no leukocytosis, no left shift. CT Ab/pelvis was done with Subcut inflammation at the Rt buttock contains small bubble of air likely represent infectious process and small sub centimeter abscess. No evidence of discrete drainable fluid collection in the right buttocks, small linear opacity extending from posterior wall of rectum to the presacral space may represent focal inflammatory changes or scar tissue. possibility of fistula tract is not totally exclude, no acute path in abdomen and pelvis as described above. Patient was managed with Zosyn 3.375gm IVPB Q8h (started 03/15), Vanco 1gm IVPB Q24 (started 03/15), and Florastor. On 03/16, Wound culture shows gram positive cocci, MRSA +, with sensitivity to TMP-SMX, Clindamycin, Gentamicin, Linezolid, Rifampin, tetracycline and Vancomycin. Patient's symptoms improved during hospitalization course. Patient is stable to discharge home as per Dr Umang Hall. The following instructions were explained to patient in Congolese and copy will have to be provided to her in Congolese. Patient to schedule follow up with the [facility] located at [address] Call for an appointment that should take place in 10 days. The doctors there will help to coordinate your health care and to check to make sure that the infection on your Right Buttock has cleared. The following prescriptions were provided to the patient upon discharge. Please use them as instructed: Clindamycin 300 mg, 1 tablet by mouth 4 times a day (8AM, 12 PM, 4 PM, and 8 PM ) for 12 days, Dispense #48, NO refills. Lactobacillius, 1 tablet by mouth 2 times a day (10 AM and 2 PM) for 42 days, Dispense #84, NO refills. Patient was provided a form for her to go to [place] to obtain her medications for a reduced sorto. Patient is adviced to continue to stay well hydrated with water. This is a brief summary of patient's hospitalization course. For more information, please refer to EMR. - Date & Time of H&P Date of H&P: 03/17/18 Time of H&P: 10:00 Discharge Exam - Head Exam Head Exam: ATRAUMATIC, NORMAL INSPECTION, NORMOCEPHALIC - Eye Exam Eye Exam: EOMI, Normal appearance - ENT Exam ENT Exam: Mucous Membranes Moist, Normal Exam - Neck Exam Neck exam: Full Rom, Normal Inspection - Respiratory Exam Respiratory Exam: Clear to PA & Lateral, NORMAL BREATHING PATTERN. absent: Rales, Rhonchi, Wheezes - Cardiovascular Exam Cardiovascular Exam: REGULAR RHYTHM, +S1, +S2 - GI/Abdominal Exam GI & Abdominal Exam: Normal Bowel Sounds, Unremarkable. absent: Distended, Guarding, Tenderness - Extremities Exam Extremities exam: full ROM, normal inspection - Back Exam Back exam: FULL ROM, NORMAL INSPECTION - Neurological Exam Neurological exam: Alert, CN II-XII Intact, Normal Gait, Oriented x3 - Psychiatric Exam Psychiatric exam: Normal Affect, Normal Mood - Skin Skin Exam: Intact, Normal Color, Warm Discharge Plan - Discharge Medications Prescriptions: Clindamycin [Cleocin] 300 mg PO QID 12 Days #48 cap Lactobacillus Acidophilus [Acidophilus Lactobacilli] 1 each PO BID 42 Days #84 capsule - Follow Up Plan Condition: STABLE Disposition: HOME/ ROUTINE Instructions: Boil, How to Wash Your Hands Properly, Clindamycin (Systemic), MRSA (DC), Lactobacillus Additional Instructions: Patient is stable to discharge home as per Dr Umang Hall. The following instructions were explained to patient in Congolese and copy will have to be provided to her in Congolese: 1). Schedule follow up with the [facility] located at [facility]. Call [phone] for an appointment that should take place in 10 days. The doctors there will help to coordinate your health care and to check to make sure that the infection on your Right Buttock has cleared. 2). The following prescriptions were provided to you upon discharge. Please use them as instructed: Clindamycin 300 mg, 1 tablet by mouth 4 times a day (8AM, 12 PM, 4 PM, and 8 PM ) for 12 days, Dispense #48, NO refills Lactobacillius, 1 tablet by mouth 2 times a day (10 AM and 2 PM) for 42 days, Dispense #84, NO refills 3). Please continue to stay well hydrated with water. 4). Please take care and be well. El paciente es estable para descargar el hogar segn el Dr. Umang Hall. Las siguientes instrucciones fueron explicadas al paciente en espaol y la copia tendr que ser proporcionada a en Espaol: 1). Programe el seguimiento con el [facility] de la vecindad localizado en el [facility]. llame [phone] para joelle yariel que debe tener lugar en 10 de paz. Los doctores all ayudarn a coordinar hook cuidado mdico y a comprobar para cerciorarse de que la infeccin en hook nalga derecha se go despejado. 2). las siguientes prescripciones fueron proporcionadas a usted sobre la descarga del hospital. Por favor, utilcelos joleen se indica: Clindamicina 300 mg, 1 tableta por va oral 4 veces al da (8am, 12 PM, 4 PM y 8 pm) lani 12 de paz, dispense #48, sin recambios Lactobacillius, 1 tableta por va oral 2 veces al da (10 AM y 2 PM) por 42 de paz , dispense #84, sin recambios 3)por favor, Mantngase jamari hidratado con agua. 4) Cuidese y que lico jamari. Referrals: [facility] at [facility] [Outside]
== END 2018-03-17 14:10 | disposition home or self-care (01) ==
LOC: C.ER 16:24 → C.9E 19:28 → C.3T 20:56
PROVIDERS: ADMIT Hospitalist; ATTEND Hospitalist
DX: L03.317 Cellulitis of buttock (principal); L02.31 Cutaneous abscess of buttock
CPT/HCPCS: 36415; 74177; 80053; 80202; 81001; 83036; 83735; 84100; 85025; 85610; 85730; 87040; 87070; 87086; 87181; 90471; 90732; 96360; 96365; 99285; G0378; J1644; J2543; J2930; J3370; J7030; J7050; Q9967

== ENCOUNTER 2018-04-29 12:15 | Emergency (ER) | payer OTHER ==
[2018-04-29 12:15] VITALS: BMI 36.1
[2018-04-29 12:31] VITALS: RESP 18
--- NOTE | 2018-04-29 12:58 | C.PDOC ---
History Of Present Illness 58 y/o female presents to the ER complaining of abdominal pain which has been present for the past 1 month. Patient describes the pain as as pressure, RLQ. She has not seen any other doctors for this pain. She notes that this pain feels like her previous hernia pain. Patient reports that she did not take any medications for the pain. No vaginal d/c or rashes. No flank pain or trauma. Denies having fever, chills, nausea, vomiting, diarrhea, dysuria and hematuria. Patient has hx of buttock abscess cellulitis (I &D on 03/14/18), C Section, and hernia. She denies any pain or redness to previous cellulitis area. No recent travel abroad, antibiotics, or new diet. Time Seen by Provider: 04/29/18 12:57 Chief Complaint (Nursing): Abdominal Pain History Per: Patient History/Exam Limitations: no limitations Onset/Duration Of Symptoms: Days Current Symptoms Are (Timing): Still Present Severity: Moderate Past Medical History Reviewed: Historical Data, Nursing Documentation, Vital Signs Vital Signs: Last Vital Signs Temp 98.3 F 04/29/18 12:22 Pulse 68 04/29/18 12:22 Resp 18 04/29/18 12:22 BP 120/80 04/29/18 12:22 Pulse Ox 98 04/29/18 14:03 - Medical History PMH: Arthritis, Bronchitis Other Surgeries: Hx of surgeries Family History: States: No Known Family Hx - Social History Hx Alcohol Use: No Hx Substance Use: No - Immunization History Hx Tetanus Toxoid Vaccination: Yes (2016) Hx Influenza Vaccination: No Hx Pneumococcal Vaccination: Yes Review Of Systems Except As Marked, All Systems Reviewed And Found Negative. Constitutional: Negative for: Fever, Chills Eyes: Negative for: Pain ENT: Negative for: Ear Pain Cardiovascular: Negative for: Chest Pain Respiratory: Negative for: Cough, Shortness of Breath Gastrointestinal: Positive for: Abdominal Pain. Negative for: Nausea, Vomiting , Diarrhea, Constipation, Melena, Hematochezia, Hematemesis Genitourinary: Negative for: Dysuria, Hematuria Musculoskeletal: Negative for: Neck Pain Skin: Negative for: Rash Neurological: Negative for: Weakness, Numbness Physical Exam - Physical Exam Appears: Non-toxic, No Acute Distress Skin: Normal Color, Warm, Dry Head: Atraumatic, Normacephalic Eye(s): bilateral: Normal Inspection Nose: Normal Oral Mucosa: Moist Neck: Supple Chest: Symmetrical Cardiovascular: Rhythm Regular Respiratory: Normal Breath Sounds, No Rales, No Rhonchi, No Wheezing Gastrointestinal/Abdominal: Normal Exam, Soft, Tenderness (RLQ tenderness), No Guarding, No Rebound Neurological/Psych: Oriented x3, Normal Speech ED Course And Treatment - Laboratory Results Result Diagrams: 04/29/18 13:14 04/29/18 13:14 O2 Sat by Pulse Oximetry: 98 (RA) Pulse Ox Interpretation: Normal Medical Decision Making Medical Decision Makin58 year old female w/ hx of hernia p/w abominal pain. RLQ tenderness on exam. Well appearing. Given hx of hernia, w/ out prior workup, RLQ abdominal pain will seek CT and labs to rule out appendicitis vs hernia pain. No nausea or vomiting. Pt denies any chest pain or sob. Plan: --Labs --UA --Pepcid IV --IV Fluids --CT- Abd & Pelv. 1400 Labs and UA reviewed- unremarkable. Pending CT EKG unremarkable. 64, NSR, No stemi 1635 CT w/ lipoma informed pt to follow up w/ GI. pt notes understanding. pain improved, clear for d/c home. Disposition - Disposition Disposition Time: 16:36 Condition: GOOD Forms: [facility] (Maltese) - Clinical Impression Clinical Impression: Abdominal pain - Scribe Statement The provider has reviewed the documentation as recorded by the Ivonneibbarry Dahl Provider Attestation: All medical record entries made by the Scribe were at my direction and personally dictated by me. I have reviewed the chart and agree that the record accurately reflects my personal performance of the history, physical exam, medical decision making, and the department course for this patient. I have also personally directed, reviewed, and agree with the discharge instructions and disposition.
[2018-04-29] MEDS ORDERED: Sodium Chloride 0.9% 1,000 ML IV SCH (13:15)
[2018-04-29 13:19] LABS: HEMOGLOBIN 12.8 g/dL (11.0-16.0); MEAN CELL VOLUME 86.9 fL (81.0-99.0); MEAN CORPUSCULAR HEMOGLOBIN 28.7 pg (27.0-31.0); MEAN PLATELET VOLUME 8.9 fL (7.2-11.7); RBC 4.47 Mil/uL (3.80-5.20); RED CELL DISTRIBUTION WIDTH 15.9 % (11.5-14.5); WHITE BLOOD COUNT 7.9 K/uL (4.8-10.8)
[2018-04-29] MEDS ORDERED: Sodium Chloride 0.9% 1,000 ML ONE (13:19)
[2018-04-29 13:27] LABS: SQUAMOUS EPITHIAL 1 /hpf (0-5); URINE BILIRUBIN NEGATIVE (NEGATIVE); URINE BLOOD 1+ (NEGATIVE); URINE CLARITY Clear (Clear); URINE COLOR Yellow (YELLOW); URINE GLUCOSE (UA) NORMAL (Normal); URINE LEUKOCYTE ESTERASE NEG Leu/uL (Negative); URINE PROTEIN NEGATIVE (NEGATIVE); URINE UROBILINOGEN NORMAL mg/dL (0.2-1.0)
[2018-04-29] MEDS ORDERED: Iohexol 240 (50 ml) ONE (13:29)
[2018-04-29] MEDS ORDERED: Iohexol 240 (50 ml) PO ONE (13:30)
[2018-04-29 13:39] LABS: ALB/GLOB RATIO 1.2 (1.0-2.1); ALBUMIN 4.5 g/dL (3.5-5.0); ALT/SGPT 52 U/L (9-52); AST/SGOT 30 U/L (14-36); BLOOD UREA NITROGEN 10 mg/dL (7-17); GFR NON-AFRICAN AMERICAN > 60; LIPASE 63 U/L (23-300)
[2018-04-29] MEDS ORDERED: Iodixanol 320 MG/ML 100 ML BOTTLE IV ONE (15:49)
--- NOTE | 2018-04-29 16:32 | CT ---
Date of service: 04/29/2018 PROCEDURE: CT Abdomen and Pelvis with contrast HISTORY: abd pain COMPARISON: 03/14/2018 TECHNIQUE: Contrast dose: 100 mL Visipaque 320 intravenous. Readi-Cat orally administered Radiation dose: Total exam DLP = 1065 mGy-cm. This CT exam was performed using one or more of the following dose reduction techniques: Automated exposure control, adjustment of the mA and/or kV according to patient size, and/or use of iterative reconstruction technique. FINDINGS: LOWER THORAX: Unremarkable. LIVER: Diffuse fatty infiltration of the liver noted-similar No gross lesion or ductal dilatation. GALLBLADDER AND BILE DUCTS: Unremarkable. PANCREAS: The 1.3 mm benign-appearing lipoma in the pancreatic head is unchanged. Ductal dilatation. SPLEEN: Unremarkable. ADRENALS: Unremarkable. No mass. KIDNEYS AND URETERS: Unremarkable. No hydronephrosis. No solid mass. VASCULATURE: Unremarkable. No aortic aneurysm. BOWEL: Unremarkable. No obstruction. No gross mural thickening. APPENDIX: Normal appendix. PERITONEUM: Unremarkable. No free fluid. No free air. LYMPH NODES: Unremarkable. No enlarged lymph nodes. BLADDER: Unremarkable. REPRODUCTIVE: Unremarkable. BONES: No acute fracture. OTHER FINDINGS: The posterior gluteal fold and right buttock subcutaneous edema and inflammatory changes have markedly improved in appearance in this patient with a prior history of a right buttock abscess. No residual abscess or significant appearing residual inflammatory changes suggested. IMPRESSION: Marked interval improvement in the prior right buttock abscess inflammatory process. No significant residual inflammatory findings now suggested. Fatty liver -unchanged. Benign appearing lipoma - pancreatic head -similar
[2018-04-29 17:05] VITALS: BP 124/86; PULSE 74; TEMP 98.1; O2SAT 100
--- NOTE | 2018-04-30 11:06 | CARD ---
APPROVED REPORT Date of service: 04/29/2018 EKG Measurement Heart [id number] <Conclusion> Normal sinus rhythm Normal ECG
== END 2018-04-29 16:50 | disposition home or self-care (01) ==
LOC: C.ER 12:15
DX: R10.31 Right lower quadrant pain (principal)
CPT/HCPCS: 74177; 80053; 81001; 83690; 85027; 93005; 96374; 99284; J7030; Q9966; Q9967

== ENCOUNTER 2018-07-19 10:54 | Inpatient (IN) | payer OTHER ==
[2018-07-19 10:55] VITALS: BMI 36.1
[2018-07-19] MEDS ORDERED: Sodium Chloride 0.9% 1,000 ML IV ONE (13:28)
[2018-07-19] MEDS ORDERED: Sodium Chloride 0.9% 1,000 ML ONE (13:41)
[2018-07-19 13:43] LABS: BASO # 0.1 K/uL (0.0-0.2); BASO % 0.9 % (0.0-2.0); EOS # 0.1 K/uL (0.0-0.7); EOS % 1.2 % (0.0-4.0); HEMOGLOBIN 13.2 g/dL (11.0-16.0); LYMPH % 33.9 % (20.0-40.0); MEAN CORPUSCULAR HEMOGLOBIN 28.6 pg (27.0-31.0); MEAN CORPUSCULAR HGB CONC 33.2 g/dL (33.0-37.0); MEAN PLATELET VOLUME 8.9 fL (7.2-11.7); MONO # 0.6 K/uL (0.0-0.8); MONO % 6.5 % (0.0-10.0); NEUT # 5.1 K/uL (1.8-7.0); NEUT % 57.5 % (50.0-75.0); NRBC % 0.1 % (0.0-2.0); RBC 4.62 Mil/uL (3.80-5.20); RED CELL DISTRIBUTION WIDTH 15.4 % (11.5-14.5); WHITE BLOOD COUNT 8.8 K/uL (4.8-10.8)
[2018-07-19 13:48] LABS: SQUAMOUS EPITHIAL 3 /hpf (0-5); URINE BACTERIA MOD (<OCC); URINE BILIRUBIN NEGATIVE (NEGATIVE); URINE BLOOD 2+ (NEGATIVE); URINE CLARITY Clear (Clear); URINE COLOR Yellow (YELLOW); URINE GLUCOSE (UA) NORMAL (Normal); URINE LEUKOCYTE ESTERASE 2+ Leu/uL (Negative); URINE PROTEIN NEGATIVE (NEGATIVE)
--- NOTE | 2018-07-19 13:50 | C.PDOC ---
History Of Present Illness 58 year old female presents to the ED for evaluation of worsening epigastric pain that radiates to the left upper quadrant and left upper back for 2-3 weeks. Patient reports she was treated for similar symptoms and diagnosed with ga stritis, no medications were provided. She admits to taking x2 Ibuprofen with no improvement. Denies fever, nausea, vomiting, diarrhea, chest pain, and any other associated symptoms. Time Seen by Provider: 07/19/18 12:32 Chief Complaint (Nursing): Abdominal Pain History Per: Patient History/Exam Limitations: no limitations Onset/Duration Of Symptoms: Other (x2-3 weeks. ) Current Symptoms Are (Timing): Still Present Past Medical History Reviewed: Historical Data, Nursing Documentation, Vital Signs Vital Signs: Last Vital Signs Temp 98.3 F 07/19/18 12:53 Pulse 76 07/19/18 12:53 Resp 17 07/19/18 12:53 BP 135/78 07/19/18 12:53 Pulse Ox 100 07/19/18 12:53 - Medical History PMH: Arthritis, Bronchitis Family History: States: Unknown Family Hx - Social History Hx Alcohol Use: No Hx Substance Use: No - Immunization History Hx Tetanus Toxoid Vaccination: Yes (2015) Hx Influenza Vaccination: Yes Hx Pneumococcal Vaccination: Yes Review Of Systems Constitutional: Negative for: Fever Cardiovascular: Negative for: Chest Pain Gastrointestinal: Positive for: Abdominal Pain (to the left upper quadrant secondary to epigastric pain. ), Other (epigastric pain. ). Negative for: Nausea, Vomiting, Diarrhea Musculoskeletal: Positive for: Back Pain (left upper back pain secondary to epigastric pain. ) Physical Exam - Physical Exam Appears: Well, Non-toxic, No Acute Distress Skin: Normal Color, Warm, Dry Head: Atraumatic, Normacephalic Eye(s): bilateral: PERRL Oral Mucosa: Moist Neck: Normal ROM, Supple Chest: Symmetrical, No Deformity, No Tenderness Cardiovascular: Rhythm Regular Respiratory: Other (no acute respiratory distress. ) Gastrointestinal/Abdominal: Normal Exam, Soft Back: Normal Inspection, No CVA Tenderness, No Vertebral Tenderness, No Paraspinal Tenderness Extremity: Normal ROM (x4) Neurological/Psych: Oriented x3, Normal Speech, Normal Cognition ED Course And Treatment - Laboratory Results Result Diagrams: 07/19/18 13:39 07/19/18 13:39 O2 Sat by Pulse Oximetry: 100 (RA) Pulse Ox Interpretation: Normal Medical Decision Making Medical Decision Making: Plan: -Blood sent. -Pepcid -Toradol -Zofran -Urinalysis -ABD Unlimited US Disposition - Disposition Disposition Time: 14:12 Condition: STABLE Forms: [facility] (Turkish) - Clinical Impression Clinical Impression: Abdominal pain - PA / GENETIC TECHNOLOGIST / Resident Statement MD/DO has reviewed & agrees with the documentation as recorded. - Scribe Statement The provider has reviewed the documentation as recorded by the Scribe (Trish Quintanilla) All medical record entries made by the Scribe were at my direction and personally dictated by me. I have reviewed the chart and agree that the record accurately reflects my personal performance of the history, physical exam, medical decision making, and the department course for this patient. I have also personally directed, reviewed, and agree with the discharge instructions and disposition. Physician Patient Turnover Patient Signed Over To: Suma Acevedo Handoff Comments: Pending Ultrasound and dispo
[2018-07-19 13:54] LABS: ALB/GLOB RATIO 1.2 (1.0-2.1); ALBUMIN 4.4 g/dL (3.5-5.0); ALT/SGPT 44 U/L (9-52); AST/SGOT 35 U/L (14-36); BLOOD UREA NITROGEN 12 mg/dL (7-17); CALCIUM 9.1 mg/dl (8.6-10.4); GFR NON-AFRICAN AMERICAN > 60; LIPASE 58 U/L (23-300)
--- NOTE | 2018-07-19 15:11 | US ---
Date of service: 07/19/2018 HISTORY: epigastric abd pain, r/o cholecystr COMPARISON: None. TECHNIQUE: Sonographic evaluation of the right upper quadrant of the abdomen. FINDINGS: LIVER: Measures 15.6 cm in length. Diffusely increased echogenicity of the liver parenchyma. Consistent with fatty infiltration. Smooth contour. No mass. No biliary dilatation. Normal hepatopetal portal venous flow demonstrated. GALLBLADDER: Cholelithiasis. Mobile calculus seen transiently in gallbladder neck.. Minimal diffuse thickening of the gallbladder wall and mild pericholecystic fluid. The wall measures 3 mm thickness. Negative sonographic Simental sign. Equivocal findings for cholecystitis. If clinically warranted consider evaluation with radionuclide hepatobiliary scan. COMMON BILE DUCT: Measures 4 mm. No stones. No dilatation. PANCREAS: Limited visualization due to overlying bowel gas. RIGHT KIDNEY: Measures 12.4 cm in length. Normal echogenicity. No calculus, mass, or hydronephrosis. AORTA: No aneurysmal dilatation. IVC: Unremarkable. OTHER FINDINGS: None . IMPRESSION: Cholelithiasis. Minimally thickened gallbladder wall and mild pericholecystic fluid. Negative sonographic Simental sign. Findings equivocal for cholecystitis. If clinically warranted consider evaluation with radionuclide hepatobiliary scan. Fatty infiltration of the liver. No evidence of biliary obstruction.
[2018-07-19] MEDS ORDERED: Ciprofloxacin 400mg/200ml D5W 400 MG/200 ML BAG IVPB STA (16:37)
[2018-07-19] MEDS ORDERED: metroNIDAZOLE IV 500 mg/100 ml 500 MG/100 ML BAG IVPB STA (16:37)
--- NOTE | 2018-07-19 16:50 | CP.PCM.HP ---
History of Present Illness - History of Present Illness History of Present Illness: Surgery: Dr. Dawn Pt is a 58F with no significant PMHx who presents to with complaints of abdominal pain x 1 day. Pt states she started having severe abdominal pain last night after dinner and thought the pain was heartburn related and would get better. However, she continued to have pain in the epigastrium/RUQ radiating to the back this morning and decided to come to the ER. Pt states she has had several episodes of abdominal pain especially after eating for the past few months, however the pain always resolved. She admits to associated nausea but denies vomiting. Denies fevers/chills. In the ER, pt had an US of the RUQ which shows cholelithiasis, mild GB wall thickening & some pericholecystic fluid. Surgery called to evaluate. Currently, pt is sitting comfortably in chair. States her pain is slightly better after getting pain medication but it's still present. Denies fevers/chills, chest pain or SOB. PMHx: denies PSHx: x 3, umbilical hernia repair 20yrs ago SocialHx: denies smoking/EtOH/drugs Present on Admission - Present on Admission Any Indicators Present on Admission: No Review of Systems - Review of Systems All systems: reviewed and no additional remarkable complaints except (as per HPI) Past Patient History - Tetanus Immunizations Tetanus Immunization: Unknown - Past Social History Smoking Status: Never Smoked Alcohol: None Drugs: Denies - PSYCHIATRIC Hx Substance Use: No - SURGICAL HISTORY Hx Surgeries: Yes Hx Section: Yes (x3) Hx Herniorrhaphy: Yes - ANESTHESIA Hx Anesthesia: Yes Hx Anesthesia Reactions: No Hx Malignant Hyperthermia: No Meds Allergies/Adverse Reactions: Allergies Allergy/AdvReac Type Severity Reaction Status Date / Time NOLOTIL Allergy Uncoded 07/19/18 11:28 Physical Exam - Constitutional Appears: Well, No Acute Distress - Head Exam Head Exam: ATRAUMATIC, NORMOCEPHALIC - Eye Exam Eye Exam: Normal appearance - ENT Exam ENT Exam: Mucous Membranes Moist - Respiratory Exam Respiratory Exam: NORMAL BREATHING PATTERN - Cardiovascular Exam Cardiovascular Exam: RRR - GI/Abdominal Exam GI & Abdominal Exam: Soft, Tenderness (RUQ). absent: Distended, Guarding, Rebound - Neurological Exam Neurological exam: Alert, Oriented x3 - Skin Skin Exam: Dry, Warm Results - Vital Signs Recent Vital Signs: Last Vital Signs Temp 98.2 F 07/19/18 15:32 Pulse 66 07/19/18 15:32 Resp 17 07/19/18 15:32 BP 130/82 07/19/18 15:32 Pulse Ox 99 07/19/18 15:32 - Labs Result Diagrams: 07/19/18 13:39 07/19/18 13:39 Labs: Laboratory Results - last 24 hr 07/19/18 07/19/18 07/19/18 13:39 13:39 13:39 WBC 8.8 RBC 4.62 Hgb 13.2 Hct 39.8 MCV 86.0 MCH 28.6 MCHC 33.2 RDW 15.4 H Plt Count 345 MPV 8.9 Neut % (Auto) 57.5 Lymph % (Auto) 33.9 [place] % (Auto) 6.5 Eos % (Auto) 1.2 Baso % (Auto) 0.9 Neut # (Auto) 5.1 Lymph # (Auto) 3.0 [place] # (Auto) 0.6 Eos # (Auto) 0.1 Baso # (Auto) 0.1 Sodium 143 Potassium 4.0 Chloride 104 Carbon Dioxide 29 Anion Gap 14 BUN 12 Creatinine 0.4 L Est GFR ( Amer) > 60 Est GFR (Non-Af Amer) > 60 Random Glucose 95 Calcium 9.1 Total Bilirubin 0.4 AST 35 ALT 44 Alkaline Phosphatase 132 H Total Protein 8.2 Albumin 4.4 Globulin 3.8 Albumin/Globulin Ratio 1.2 Lipase 58 Urine Color Yellow Urine Clarity Clear Urine pH 5.0 Ur Specific [place] 1.021 Urine Protein Negative Urine Glucose (UA) Normal Urine Ketones Negative Urine Blood 2+ H Urine Nitrate Negative Urine Bilirubin Negative Urine Urobilinogen 2.0 H Ur Leukocyte Esterase 2+ H Urine WBC (Auto) 40 H Urine RBC (Auto) 17 H Ur Squamous Epith Cells 3 Urine Bacteria Mod H - Imaging and Cardiology US - abdomen Status: Image reviewed by me, Report reviewed by me Assessment & Plan - Assessment and Plan (Free Text) Assessment: 58F with cholecystitis & UTI Plan: - plan for OR in AM - Keep NPO after midnight - IVF, IV ABX - pain control - d/w Dr. López Bobby
[2018-07-19] MEDS ORDERED: metroNIDAZOLE IV 500 mg/100 ml 500 MG/100 ML BAG ONE (16:57)
[2018-07-19] MEDS ORDERED: Ciprofloxacin 400mg/200ml D5W 400 MG/200 ML BAG IVPB ONE (16:58)
[2018-07-19] MEDS ORDERED: Ciprofloxacin 400mg/200ml D5W 400 MG/200 ML BAG IVPB SCH (17:15)
[2018-07-19] MEDS ORDERED: metroNIDAZOLE IV 500 mg/100 ml 500 MG/100 ML BAG IVPB SCH (17:15)
[2018-07-19] MEDS: Lactated Ringer's 1,000 ML IV SCH (22:47)
[2018-07-20 00:02] VITALS: RESP 20
[2018-07-20] MEDS: metroNIDAZOLE IV 500 mg/100 ml 500 MG/100 ML BAG IVPB SCH ×3 (00:58→17:26)
[2018-07-20] MEDS: Lactated Ringer's 1,000 ML IV SCH ×3 (03:00→22:21)
[2018-07-20 04:35] LABS: HEMOGLOBIN 11.6 g/dL (11.0-16.0); MEAN CORPUSCULAR HEMOGLOBIN 28.4 pg (27.0-31.0); MEAN CORPUSCULAR HGB CONC 33.1 g/dL (33.0-37.0); MEAN PLATELET VOLUME 8.6 fL (7.2-11.7); RBC 4.08 Mil/uL (3.80-5.20); RED CELL DISTRIBUTION WIDTH 15.3 % (11.5-14.5); WHITE BLOOD COUNT 8.2 K/uL (4.8-10.8)
[2018-07-20 04:42] LABS: INR 1.1; PROTHROMBIN TIME 12.4 SECONDS (9.7-12.2)
[2018-07-20 05:04] LABS: ALB/GLOB RATIO 1.2 (1.0-2.1); ALBUMIN 3.8 g/dL (3.5-5.0); ALT/SGPT 44 U/L (9-52); AST/SGOT 27 U/L (14-36); BLOOD UREA NITROGEN 10 mg/dL (7-17); CALCIUM 8.4 mg/dl (8.6-10.4); GFR NON-AFRICAN AMERICAN > 60
[2018-07-20] MEDS ORDERED: Ciprofloxacin 400mg/200ml D5W 400 MG/200 ML BAG IVPB SCH ×2 (05:30→08:00)
[2018-07-20] MEDS ORDERED: Propofol 10 mg/ml Inj (20 ML) ONE (07:15)
[2018-07-20] MEDS ORDERED: Phenylephrine 10 mg/ml Inj ONE (07:16)
[2018-07-20] MEDS ORDERED: Rocuronium 10 mg/ml (5 ml) ONE ×2 (07:16→08:39)
[2018-07-20] MEDS ORDERED: Succinylcholine Chloride 20 mg/ml Syr (5 ml) IV ONE (07:16)
[2018-07-20] MEDS ORDERED: Lidocaine 4% (Laryng-O-Jet) Kit MM ONE (07:16)
[2018-07-20] MEDS ORDERED: ceFAZolin IV 1 gm in Dextrose 0 GM/0 ML BAG IVPB ONE (07:18)
[2018-07-20] MEDS ORDERED: Lidocaine/Epinephrine 1% 1:100000 10 ML IJ ONE (07:19)
[2018-07-20] MEDS ORDERED: Bupivacaine 0.25% 20 ML INJ IJ ONE (07:19)
[2018-07-20] MEDS ORDERED: Midazolam 2 MG/2 ML VIAL ONE (07:28)
[2018-07-20] MEDS ORDERED: Ciprofloxacin 400mg/200ml D5W 400 MG/200 ML BAG IVPB ONE (07:35)
[2018-07-20] MEDS ORDERED: metroNIDAZOLE IV 500 mg/100 ml 500 MG/100 ML BAG ONE (07:35)
[2018-07-20] MEDS: Ciprofloxacin 400mg/200ml D5W 400 MG/200 ML BAG IVPB SCH ×2 (08:06→20:16)
--- NOTE | 2018-07-20 08:26 | RAD ---
Date of service: 07/19/2018 HISTORY: pre-op COMPARISON: 01/23/2018 FINDINGS: LUNGS: No active pulmonary disease. PLEURA: No significant pleural effusion identified, no pneumothorax apparent. CARDIOVASCULAR: No aortic atherosclerotic calcification present. Borderline cardiomegaly. Possible mild pulmonary venous congestion large body habitus shallow lung volumes noted OSSEOUS STRUCTURES: No significant abnormalities. VISUALIZED UPPER ABDOMEN: Normal. OTHER FINDINGS: None. IMPRESSION: No infiltrate. Borderline cardiomegaly. Possible mild pulmonary venous congestion large body habitus shallow lung volumes noted
--- NOTE | 2018-07-20 09:40 | PCM.SURG1 ---
Surgeon's Initial Post Op Note - Surgeon's Notes Surgeon: Dr. Dawn Caramel Maker: Dr. Duncan PGY3, Huan RIVERO Type of Anesthesia: General Endo Anesthesia Administered By: Dr. Jauregui Pre-Operative Diagnosis: Acute Cholecystitis Operative Findings: See operative dictation Post-Operative Diagnosis: Acute Cholecystitis Operation Performed: Robotic Cholecystectomy Specimen/Specimens Removed: Gallbladder Estimated Blood Loss: EBL {In ML}: 350 Drains Used: No Drains Post-Op Condition: Good Date of Surgery/Procedure: 07/20/18 Time of Surgery/Procedure: 09:39
[2018-07-20] MEDS: HYDROmorphone 0.5 mg/0.5 ml ISec IVP PRN ×2 (10:48→11:09)
[2018-07-20 11:03] LABS: BASO # 0.1 K/uL (0.0-0.2); BASO % 0.3 % (0.0-2.0); EOS # 0.1 K/uL (0.0-0.7); EOS % 0.6 % (0.0-4.0); HEMOGLOBIN 10.8 g/dL (11.0-16.0); LYMPH # 2.5 K/uL (1.0-4.3); LYMPH % 13.5 % (20.0-40.0); MEAN CELL VOLUME 86.9 fL (81.0-99.0); MEAN CORPUSCULAR HEMOGLOBIN 28.1 pg (27.0-31.0); MEAN CORPUSCULAR HGB CONC 32.4 g/dL (33.0-37.0); MEAN PLATELET VOLUME 8.8 fL (7.2-11.7); MONO # 0.5 K/uL (0.0-0.8); MONO % 2.7 % (0.0-10.0); NEUT # 15.2 K/uL (1.8-7.0); NEUT % 82.9 % (50.0-75.0); RBC 3.83 Mil/uL (3.80-5.20); RED CELL DISTRIBUTION WIDTH 15.2 % (11.5-14.5); WHITE BLOOD COUNT 18.3 K/uL (4.8-10.8)
[2018-07-20 11:18] LABS: ALB/GLOB RATIO 1.1 (1.0-2.1); ALBUMIN 3.3 g/dL (3.5-5.0); ALT/SGPT 126 U/L (9-52); AST/SGOT 144 U/L (14-36); BLOOD UREA NITROGEN 8 mg/dL (7-17); CALCIUM 7.9 mg/dl (8.6-10.4); GFR NON-AFRICAN AMERICAN > 60
[2018-07-20] MEDS: Piperacillin/Tazobact 3.375 GM in Sodium Chloride 100 ML IVPB SCH ×3 (13:14→22:17)
[2018-07-20 16:00] VITALS: O2SAT 95
--- NOTE | 2018-07-20 17:09 | CARD ---
APPROVED REPORT Date of service: 07/19/2018 EKG Measurement Heart [id number] RI [id number] <Conclusion> Normal sinus rhythm Normal ECG
[2018-07-21] MEDS: metroNIDAZOLE IV 500 mg/100 ml 500 MG/100 ML BAG IVPB SCH ×3 (00:35→17:50)
[2018-07-21] MEDS: Piperacillin/Tazobact 3.375 GM in Sodium Chloride 100 ML IVPB SCH ×2 (03:17→09:59)
[2018-07-21] MEDS: Lactated Ringer's 1,000 ML IV SCH ×4 (03:18→19:00)
[2018-07-21 07:14] LABS: BASO % 0.1 % (0.0-2.0); HEMOGLOBIN 10.1 g/dL (11.0-16.0); LYMPH # 1.5 K/uL (1.0-4.3); LYMPH % 12.1 % (20.0-40.0); MEAN CELL VOLUME 85.7 fL (81.0-99.0); MEAN CORPUSCULAR HEMOGLOBIN 28.2 pg (27.0-31.0); MEAN CORPUSCULAR HGB CONC 32.9 g/dL (33.0-37.0); MEAN PLATELET VOLUME 8.9 fL (7.2-11.7); MONO % 8.1 % (0.0-10.0); NEUT # 9.6 K/uL (1.8-7.0); NEUT % 79.7 % (50.0-75.0); RBC 3.58 Mil/uL (3.80-5.20)
[2018-07-21 07:38] LABS: ALB/GLOB RATIO 1.2 (1.0-2.1); ALBUMIN 3.4 g/dL (3.5-5.0); ALT/SGPT 270 U/L (9-52); AST/SGOT 220 U/L (14-36); BLOOD UREA NITROGEN 11 mg/dL (7-17); CALCIUM 8.2 mg/dl (8.6-10.4); GFR NON-AFRICAN AMERICAN > 60
[2018-07-21] MEDS: Ciprofloxacin 400mg/200ml D5W 400 MG/200 ML BAG IVPB SCH ×2 (07:42→20:00)
--- NOTE | 2018-07-21 19:41 | OP ---
PROCEDURE DATE: 07/20/2018 PREOPERATIVE DIAGNOSES: 1. Acute cholecystitis and cholelithiasis. 2. Morbid obesity. 3. Fatty liver. POSTOPERATIVE DIAGNOSES: 1. Acute cholecystitis and cholelithiasis. 2. Morbid obesity. 3. Fatty liver. PROCEDURES PERFORMED: 1. Robotic cholecystectomy. 2. Robotic enterolysis and lysis of adhesion. 3. Laparoscopic control of extensive venous bleeding from liver bed. SURGEON: Anam Dawn MD LABOR RELATIONS DIRECTOR: CARYL Del Valle ANESTHESIA: General endotracheal tube anesthesia. ESTIMATED BLOOD LOSS: Around 400 mL. DRAINS: The 19-Tamazight Pieter drain was placed. COMPLICATIONS: None. INTRAOPERATIVE FINDINGS: The patient had large liver with extensive adhesion as well as morbid obesity and liver was very friable. Every place in the liver was bleeding wherever you touch and during the dissection and during the taking of the gallbladder, the patient had extensive venous bleeding from one of the branch of the hepatic vein and approximately 60 to 80 minutes extra time were spent to control the venous bleeding. DESCRIPTION OF PROCEDURE: On intraoperative steps, this 58-year-old female was diagnosed with acute cholecystitis and cholelithiasis and the patient was consented for the laparoscopic-assisted robotic cholecystectomy possible open, brought to the OR, placed supine on operating table. After induction of the anesthesia, the abdomen was prepped and draped in usual sterile fashion. The supraumbilical transverse incision was made after incising the skin, subcutaneous tissue, and the fascia. The robotic camera port was placed. Pneumo was created. Another 3-8 mm port was placed in upper abdomen. The robot was brought in. Camera arm as well as arm 1 and arm 2 was docked and the gallbladder appeared to be extremely adhesed to the omentum and the surrounding colon and the duodenum and the patient had acute inflammation and first lysis of adhesion as well as proper dissection was done and after enterolysis, the gallbladder was retracted cranially. During the dissection, the patient had bleeding from the liver and the liver appeared to be very friable due to the fatty liver and hepatomegaly and careful dissection was done. Cystic duct and cystic artery were identified. The top-down approach was done and the critical view of the safety was also identified and intraoperative Firefly was used to identify the CBD as well as the cystic duct. Cystic duct and cystic artery were clipped and cut and the gallbladder was dissected free from the gallbladder fossa. During the dissection in the mid part of the gallbladder fossa, the patient was found to have excessive bleeding from one of the branch of the hepatic vein. The gallbladder was completely removed. Now, the procedure was converted to laparoscopy and approximately 8-10 Surgicel packs were placed and the patient was placed in supine position and control of the bleeding was done. Approximately 60-80 minutes time were spent for the packing and then complete packing was removed. There was no venous bleed and the one piece of Surgicel as well as Tisseel was placed and proper drain was placed and all the instruments were taken out, all the ports were taken out and the umbilical port site was closed in two layers, the fascia with 0 Vicryl interrupted sutures, skin with 4-0 Monocryl, and dry sterile dressing was applied. The patient was extubated in OR. The patient did not receive any intraoperative PRBC and 1 FFP was given in the recovery room and the count of the instrument was correct. Anam Dawn MD
[2018-07-22] MEDS: metroNIDAZOLE IV 500 mg/100 ml 500 MG/100 ML BAG IVPB SCH ×3 (00:11→17:19)
[2018-07-22] MEDS: Ciprofloxacin 400mg/200ml D5W 400 MG/200 ML BAG IVPB SCH ×2 (08:27→20:00)
[2018-07-22] MEDS: Oxycodone/Acetaminophen 5/325 mg Tab PO PRN ×2 (08:29→16:02)
[2018-07-22 08:43] LABS: BASO # 0.1 K/uL (0.0-0.2); BASO % 0.8 % (0.0-2.0); EOS # 0.1 K/uL (0.0-0.7); EOS % 1.3 % (0.0-4.0); HEMOGLOBIN 11.7 g/dL (11.0-16.0); LYMPH # 2.7 K/uL (1.0-4.3); LYMPH % 23.3 % (20.0-40.0); MEAN CELL VOLUME 86.1 fL (81.0-99.0); MEAN CORPUSCULAR HEMOGLOBIN 28.6 pg (27.0-31.0); MEAN CORPUSCULAR HGB CONC 33.2 g/dL (33.0-37.0); MEAN PLATELET VOLUME 8.9 fL (7.2-11.7); MONO # 0.9 K/uL (0.0-0.8); MONO % 7.6 % (0.0-10.0); NEUT # 7.7 K/uL (1.8-7.0); RBC 4.11 Mil/uL (3.80-5.20); RED CELL DISTRIBUTION WIDTH 15.4 % (11.5-14.5); WHITE BLOOD COUNT 11.5 K/uL (4.8-10.8)
--- NOTE | 2018-07-22 08:45 | CP.PCM.PN ---
Subjective - Date & Time of Evaluation Date of Evaluation: 07/21/18 Time of Evaluation: 10:00 - Subjective Subjective: General Surgery Progress Note for Dr. Dawn\ This 58F was seen and examined this AM at bedside no acute events reported overnight. She had 75cc serosanguinous output from drain sanginous content appears old not bright red. She is tolerating diet denies flatus or BM. Reports moderate inscsional pain. Denies chest pain or SOB. Objective - Vital Signs/Intake and Output Vital Signs (last 24 hours): Temp Pulse Resp BP Pulse Ox 98.0 F 71 20 136/82 95 07/22/18 07:36 07/22/18 07:36 07/22/18 07:36 07/22/18 07:36 07/22/18 07:36 Intake and Output: 07/22/18 07/22/18 06:59 18:59 Intake Total 100 Output Total 30 Balance 70 - Medications Medications: Current Medications Famotidine (Pepcid) 20 mg IVP DAILY STEPHANI Metronidazole (Flagyl) 500 mg in 100 mls @ 100 mls/hr IVPB Q8H STEPHANI; Protocol Last Admin: 07/22/18 08:28 Dose: 100 mls/hr Ciprofloxacin (Cipro 400mg/200ml Dsw) 400 mg in 200 mls @ 133 mls/hr IVPB Q12H STEPHANI; Protocol Last Admin: 07/22/18 08:27 Dose: 133 mls/hr Morphine Sulfate (Morphine) 2 mg IVP Q4 PRN PRN Reason: Pain, severe (8-10) Ondansetron HCl (Zofran Inj) 4 mg IVP Q4H PRN PRN Reason: Nausea/Vomiting Last Admin: 07/20/18 16:58 Dose: 4 mg Oxycodone/Acetaminophen (Percocet 5/325 Mg Tab) 1 tab PO Q4H PRN PRN Reason: Pain, moderate (4-7) Stop: 07/24/18 22:48 Last Admin: 07/22/18 08:29 Dose: 1 tab Senna/Docusate Sodium (Senokot S 50 Mg-8.6 Mg) 1 tab PO BID STEPHANI - Labs Labs: 07/21/18 07:02 07/21/18 07:02 PT 12.4 SECONDS (9.7-12.2) H 07/20/18 04:31 INR 1.1 07/20/18 04:31 APTT 28 SECONDS (21-34) 07/20/18 04:31 - Constitutional Appears: Non-toxic, No Acute Distress - Head Exam Head Exam: ATRAUMATIC, NORMOCEPHALIC - Eye Exam Eye Exam: EOMI - ENT Exam ENT Exam: Mucous Membranes Moist - Respiratory Exam Respiratory Exam: NORMAL BREATHING PATTERN - Cardiovascular Exam Cardiovascular Exam: +S1, +S2 - GI/Abdominal Exam GI & Abdominal Exam: Soft. absent: Firm, Guarding, Rigid, Tenderness Additional comments: Dressing clean dry and intact, drain on suction with serosanguinous output. Abdomen with appropriate incisional tenderness. - Neurological Exam Neurological Exam: Alert, Awake - Psychiatric Exam Psychiatric exam: Normal Affect, Normal Mood - Skin Skin Exam: Dry, Intact Assessment and Plan - Assessment and Plan (Free Text) Assessment: 58F POD#1 s/p lapo olayinka and doing well Plan: Monitor labs monitor bowel function pain control abx colace further recs per Dr. López Duncan PGY3
--- NOTE | 2018-07-22 08:56 | CP.PCM.PN ---
Subjective - Date & Time of Evaluation Date of Evaluation: 07/22/18 Time of Evaluation: 08:52 - Subjective Subjective: General Surgery Progress Note for Dr. Dawn This 58F was seen and examined this AM at bedside no acute events reported overnight. She denies any nausea or vomiting. She is tolerating diet and passing gas however denies bowel movement. She had 30cc serosanguinous output from drain sanguineous content appears old not bright red. She is tolerating diet denies flatus or BM. Reports moderate inscsional pain. Denies chest pain or SOB. He only complaint this AM is a headache. Objective - Vital Signs/Intake and Output Vital Signs (last 24 hours): Temp Pulse Resp BP Pulse Ox 98.0 F 71 20 136/82 95 07/22/18 07:36 07/22/18 07:36 07/22/18 07:36 07/22/18 07:36 07/22/18 07:36 Intake and Output: 07/22/18 07/22/18 06:59 18:59 Intake Total 100 Output Total 30 Balance 70 - Medications Medications: Current Medications Famotidine (Pepcid) 20 mg IVP DAILY STEPHANI Metronidazole (Flagyl) 500 mg in 100 mls @ 100 mls/hr IVPB Q8H STEPHANI; Protocol Last Admin: 07/22/18 08:28 Dose: 100 mls/hr Ciprofloxacin (Cipro 400mg/200ml Dsw) 400 mg in 200 mls @ 133 mls/hr IVPB Q12H STEPHANI; Protocol Last Admin: 07/22/18 08:27 Dose: 133 mls/hr Morphine Sulfate (Morphine) 2 mg IVP Q4 PRN PRN Reason: Pain, severe (8-10) Ondansetron HCl (Zofran Inj) 4 mg IVP Q4H PRN PRN Reason: Nausea/Vomiting Last Admin: 07/20/18 16:58 Dose: 4 mg Oxycodone/Acetaminophen (Percocet 5/325 Mg Tab) 1 tab PO Q4H PRN PRN Reason: Pain, moderate (4-7) Stop: 07/24/18 22:48 Last Admin: 07/22/18 08:29 Dose: 1 tab Senna/Docusate Sodium (Senokot S 50 Mg-8.6 Mg) 1 tab PO BID STEPHANI - Labs Labs: 07/22/18 08:25 07/21/18 07:02 PT 12.4 SECONDS (9.7-12.2) H 07/20/18 04:31 INR 1.1 07/20/18 04:31 APTT 28 SECONDS (21-34) 07/20/18 04:31 - Constitutional Appears: Non-toxic, No Acute Distress - Head Exam Head Exam: ATRAUMATIC, NORMOCEPHALIC - Eye Exam Eye Exam: EOMI - ENT Exam ENT Exam: Mucous Membranes Moist - Respiratory Exam Respiratory Exam: NORMAL BREATHING PATTERN - Cardiovascular Exam Cardiovascular Exam: +S1, +S2 - GI/Abdominal Exam GI & Abdominal Exam: Soft. absent: Firm, Guarding, Rigid, Tenderness Additional comments: Dressing clean dry and intact, drain on suction with old serosanguinous output. Abdomen with appropriate incisional tenderness. - Neurological Exam Neurological Exam: Alert, Awake - Psychiatric Exam Psychiatric exam: Normal Affect, Normal Mood - Skin Skin Exam: Dry, Intact Assessment and Plan - Assessment and Plan (Free Text) Assessment: 58F POD#1 s/p lapo olayinka and doing well Plan: Remove drain Discharge planning further recs per Dr. López Duncan PGY3
[2018-07-22 09:11] LABS: ALB/GLOB RATIO 1.3 (1.0-2.1); ALBUMIN 4.2 g/dL (3.5-5.0); ALT/SGPT 247 U/L (9-52); AST/SGOT 120 U/L (14-36); BLOOD UREA NITROGEN 9 mg/dL (7-17); CALCIUM 8.7 mg/dl (8.6-10.4); GFR NON-AFRICAN AMERICAN > 60
[2018-07-22] MEDS: Docusate-Senna 50 mg-8.6 mg Tab PO SCH ×2 (10:00→17:20)
--- NOTE | 2018-07-22 15:14 | CP.PCM.DIS ---
Provider - Provider Date of Admission: 07/19/18 16:38 Attending physician: Anam Dawn MD Consults: 07/19/18 15:30 General Surgery Consult Stat Comment: Consulting Provider: Anam Dawn Consulting Physician: Anam Dawn Reason for Consult: epigastric pain, cholelithiasis Time Spent in preparation of Discharge (in minutes): 35 Diagnosis - Discharge Diagnosis (1) Acute cholecystitis Status: Resolved Hospital Course - Lab Results Lab Results: Most Recent Lab Values WBC 11.5 K/uL (4.8-10.8) H 07/22/18 08:25 RBC 4.11 Mil/uL (3.80-5.20) 07/22/18 08:25 Hgb 11.7 g/dL (11.0-16.0) 07/22/18 08:25 Hct 35.4 % (34.0-47.0) 07/22/18 08:25 MCV 86.1 fL (81.0-99.0) 07/22/18 08:25 MCH 28.6 pg (27.0-31.0) 07/22/18 08:25 MCHC 33.2 g/dL (33.0-37.0) 07/22/18 08:25 RDW 15.4 % (11.5-14.5) H 07/22/18 08:25 Plt Count 305 K/uL (130-400) 07/22/18 08:25 MPV 8.9 fL (7.2-11.7) 07/22/18 08:25 Neut % (Auto) 67.0 % (50.0-75.0) 07/22/18 08:25 Lymph % (Auto) 23.3 % (20.0-40.0) 07/22/18 08:25 [place] % (Auto) 7.6 % (0.0-10.0) 07/22/18 08:25 Eos % (Auto) 1.3 % (0.0-4.0) 07/22/18 08:25 Baso % (Auto) 0.8 % (0.0-2.0) 07/22/18 08:25 Neut # (Auto) 7.7 K/uL (1.8-7.0) H 07/22/18 08:25 Lymph # (Auto) 2.7 K/uL (1.0-4.3) 07/22/18 08:25 [place] # (Auto) 0.9 K/uL (0.0-0.8) H 07/22/18 08:25 Eos # (Auto) 0.1 K/uL (0.0-0.7) 07/22/18 08:25 Baso # (Auto) 0.1 K/uL (0.0-0.2) 07/22/18 08:25 PT 12.4 SECONDS (9.7-12.2) H 07/20/18 04:31 INR 1.1 07/20/18 04:31 APTT 28 SECONDS (21-34) 07/20/18 04:31 Sodium 140 mmol/L (132-148) 07/22/18 08:25 Potassium 3.5 mmol/L (3.6-5.2) L 07/22/18 08:25 Chloride 102 mmol/L (98-107) 07/22/18 08:25 Carbon Dioxide 28 mmol/L (22-30) 07/22/18 08:25 Anion Gap 13 (10-20) 07/22/18 08:25 BUN 9 mg/dL (7-17) 07/22/18 08:25 Creatinine 0.4 mg/dL (0.7-1.2) L 07/22/18 08:25 Est GFR ( Amer) > 60 07/22/18 08:25 Est GFR (Non-Af Amer) > 60 07/22/18 08:25 Random Glucose 131 mg/dL (65-105) H 07/22/18 08:25 Calcium 8.7 mg/dl (8.6-10.4) 07/22/18 08:25 Total Bilirubin 0.4 mg/dL (0.2-1.3) 07/22/18 08:25 AST 120 U/L (14-36) H D 07/22/18 08:25 ALT 247 U/L (9-52) H 07/22/18 08:25 Alkaline Phosphatase 110 U/L (38-126) 07/22/18 08:25 Total Protein 7.5 g/dL (6.3-8.3) 07/22/18 08:25 Albumin 4.2 g/dL (3.5-5.0) 07/22/18 08:25 Globulin 3.3 gm/dL (2.2-3.9) 07/22/18 08:25 Albumin/Globulin Ratio 1.3 (1.0-2.1) 07/22/18 08:25 Lipase 58 U/L (23-300) 07/19/18 13:39 Urine Color Yellow (YELLOW) 07/19/18 13:39 Urine Clarity Clear (Clear) 07/19/18 13:39 Urine pH 5.0 (5.0-8.0) 07/19/18 13:39 Ur Specific [place] 1.021 (1.003-1.030) 07/19/18 13:39 Urine Protein Negative mg/dL (NEGATIVE) 07/19/18 13:39 Urine Glucose (UA) Normal mg/dL (Normal) 07/19/18 13:39 Urine Ketones Negative mg/dL (NEGATIVE) 07/19/18 13:39 Urine Blood 2+ (NEGATIVE) H 07/19/18 13:39 Urine Nitrate Negative (NEGATIVE) 07/19/18 13:39 Urine Bilirubin Negative (NEGATIVE) 07/19/18 13:39 Urine Urobilinogen 2.0 mg/dL (0.2-1.0) H 07/19/18 13:39 Ur Leukocyte Esterase 2+ Marlon/uL (Negative) H 07/19/18 13:39 Urine WBC (Auto) 40 /hpf (0-5) H 07/19/18 13:39 Urine RBC (Auto) 17 /hpf (0-3) H 07/19/18 13:39 Ur Squamous Epith Cells 3 /hpf (0-5) 07/19/18 13:39 Urine Bacteria Mod (<OCC) H 07/19/18 13:39 Blood Type O POSITIVE 07/20/18 09:00 Antibody Screen Negative 07/20/18 09:00 - Hospital Course Hospital Course: This 58F was admitted on 07/19 with abdominal pain. She was found to have acute cholecystitis. She was taken to the OR for a robotic cholecystectomy. She had an unremarkable recovery. She drain output appropriately. She is tolerating diet and passing gas and is clear for discharge home. Discharge Exam - Head Exam Head Exam: ATRAUMATIC, NORMOCEPHALIC - Eye Exam Eye Exam: EOMI - ENT Exam ENT Exam: Mucous Membranes Moist - Respiratory Exam Respiratory Exam: NORMAL BREATHING PATTERN - Cardiovascular Exam Cardiovascular Exam: +S1, +S2 - GI/Abdominal Exam GI & Abdominal Exam: Soft. absent: Distended, Guarding, Rebound, Rigid, Tenderness Additional comments: Dressing clean dry and intact - Neurological Exam Neurological exam: Alert - Psychiatric Exam Psychiatric exam: Normal Affect, Normal Mood - Skin Skin Exam: Dry, Intact Discharge Plan - Follow Up Plan Condition: FAIR Disposition: HOME/ ROUTINE Instructions: Cholecystitis (DC), Cholecystitis (GEN) Additional Instructions: Leave dressing on until thursday afterwards you may remove top dressing leave surgical strips in place. Try to keep inscisions dry. Use over the ocunter pain medications as needed. If you develop fevers chills chest pain or any new or concerning symptoms call Dr. Dawn, or your primary care physcian, or go to the emergency department. Call Dr. Green office to schedule an appointment in 8-10 days.
[2018-07-22 16:31] VITALS: BP 134/82; PULSE 75; TEMP 98.5
== END 2018-07-22 23:01 | disposition home or self-care (01) ==
LOC: C.ER 10:54 → C.9E 16:38 → C.3T 19:12
PROVIDERS: ADMIT Surgery Surgical Critical Care; ATTEND Surgery Surgical Critical Care
PROC: 0FT44ZZ Resection of Gallbladder, Percutaneous Endoscopic Approach (ICD-10-PCS; principal; 2018-07-19)
PROC: 0W3G4ZZ Control Bleeding in Peritoneal Cavity, Percutaneous Endoscopic Approach (ICD-10-PCS; 2018-07-19)
PROC: 0DNU4ZZ Release Omentum, Percutaneous Endoscopic Approach (ICD-10-PCS; 2018-07-19)
PROC: 0DN94ZZ Release Duodenum, Percutaneous Endoscopic Approach (ICD-10-PCS; 2018-07-19)
PROC: 0DNE4ZZ Release Large Intestine, Percutaneous Endoscopic Approach (ICD-10-PCS; 2018-07-19)
PROC: 8E0W4CZ Robotic Assisted Procedure of Trunk Region, Percutaneous Endoscopic Approach (ICD-10-PCS; 2018-07-19)
DX: K80.00 Calculus of gallbladder with acute cholecystitis without obstruction (principal); N39.0 Urinary tract infection, site not specified; E66.01 Morbid (severe) obesity due to excess calories; K76.0 Fatty (change of) liver, not elsewhere classified; K76.89 Other specified diseases of liver; K66.0 Peritoneal adhesions (postprocedural) (postinfection)

== ENCOUNTER 2018-10-16 11:03 | Emergency (ER) | payer OTHER ==
[2018-10-16 11:04] VITALS: BMI 36.1
[2018-10-16] MEDS ORDERED: Iohexol 240 (50 ml) PO STA (12:35)
[2018-10-16] MEDS ORDERED: Sodium Chloride 0.9% 1,000 ML IV STA (12:35)
[2018-10-16] MEDS ORDERED: Sodium Chloride 0.9% 1,000 ML ONE (12:50)
[2018-10-16] MEDS ORDERED: Iohexol 240 (50 ml) ONE (12:50)
[2018-10-16 12:52] LABS: SQUAMOUS EPITHIAL 2 /hpf (0-5); URINE BACTERIA OCC (<OCC); URINE BILIRUBIN NEGATIVE (NEGATIVE); URINE BLOOD 1+ (NEGATIVE); URINE CLARITY Clear (Clear); URINE COLOR Yellow (YELLOW); URINE GLUCOSE (UA) NORMAL (Normal); URINE LEUKOCYTE ESTERASE 2+ Leu/uL (Negative); URINE PROTEIN NEGATIVE (NEGATIVE); URINE UROBILINOGEN NORMAL mg/dL (0.2-1.0)
[2018-10-16 12:54] LABS: BASO # 0.1 K/uL (0.0-0.2); BASO % 0.9 % (0.0-2.0); EOS # 0.2 K/uL (0.0-0.7); EOS % 2.1 % (0.0-4.0); HEMOGLOBIN 12.3 g/dL (11.0-16.0); LYMPH # 2.7 K/uL (1.0-4.3); LYMPH % 29.8 % (20.0-40.0); MEAN CELL VOLUME 86.8 fL (81.0-99.0); MEAN CORPUSCULAR HEMOGLOBIN 28.5 pg (27.0-31.0); MEAN CORPUSCULAR HGB CONC 32.8 g/dL (33.0-37.0); MEAN PLATELET VOLUME 8.9 fL (7.2-11.7); MONO # 0.7 K/uL (0.0-0.8); NEUT # 5.4 K/uL (1.8-7.0); NEUT % 59.2 % (50.0-75.0); RBC 4.31 Mil/uL (3.80-5.20); RED CELL DISTRIBUTION WIDTH 15.1 % (11.5-14.5); WHITE BLOOD COUNT 9.1 K/uL (4.8-10.8)
[2018-10-16 12:58] LABS: ALB/GLOB RATIO 1.2 (1.0-2.1); ALBUMIN 4.1 g/dL (3.5-5.0); ALT/SGPT 32 U/L (9-52); AST/SGOT 30 U/L (14-36); BLOOD UREA NITROGEN 13 mg/dL (7-17); CALCIUM 8.8 mg/dl (8.6-10.4); GFR NON-AFRICAN AMERICAN > 60; LIPASE 55 U/L (23-300)
[2018-10-16 14:45] VITALS: PULSE 66; TEMP 98.2
[2018-10-16] MEDS ORDERED: Iodixanol 320 MG/ML 100 ML BOTTLE IV ONE (14:45)
--- NOTE | 2018-10-16 15:18 | CT ---
Date of service: 10/16/2018 PROCEDURE: CT Abdomen and Pelvis with contrast HISTORY: RLQ/right groin pain COMPARISON: 04/29/2018 TECHNIQUE: Contrast dose: 100 mL Visipaque 320 Radiation dose: Total exam DLP = 1118.06 mGy-cm. This CT exam was performed using one or more of the following dose reduction techniques: Automated exposure control, adjustment of the mA and/or kV according to patient size, and/or use of iterative reconstruction technique. FINDINGS: LOWER THORAX: Unremarkable. LIVER: Unremarkable. No gross lesion or ductal dilatation. GALLBLADDER AND BILE DUCTS: Contracted gallbladder. Small calcified gallstones are identified. PANCREAS: No evidence of pancreatitis. There is a stable 13 mm lipoma at the junction of the pancreatic head and body. No pancreatic ductal dilatation.. SPLEEN: Unremarkable. ADRENALS: Unremarkable. No mass. KIDNEYS AND URETERS: Unremarkable. No hydronephrosis. No solid mass. VASCULATURE: Unremarkable. No aortic aneurysm. No aortic atherosclerotic calcification or mural plaque present. BOWEL: Unremarkable. No obstruction. No gross mural thickening. APPENDIX: Normal appendix. PERITONEUM: Unremarkable. No free fluid. No free air. LYMPH NODES: Unremarkable. No enlarged lymph nodes. BLADDER: Unremarkable. REPRODUCTIVE: Normal uterus BONES: No acute fracture. OTHER FINDINGS: None. IMPRESSION: No acute abnormality. No evidence of inguinal hernia. Stable pancreatic lipoma.
[2018-10-16 16:53] VITALS: BP 120/78; RESP 17; O2SAT 99
--- NOTE | 2018-10-16 17:18 | C.PDOC ---
History Of Present Illness 58 y/o female presents to the ED complaining of right groin pain for 1 week. Also states she had cholecystectomy 1 year ago, and since then has had intermittent epigastric pain frequently after eating. Pain is associated with nausea and vomiting. No fever, chills, or diarrhea. Time Seen by Provider: 10/16/18 11:20 Chief Complaint (Nursing): Groin Pain History Per: Patient History/Exam Limitations: no limitations Onset/Duration Of Symptoms: Days Current Symptoms Are (Timing): Still Present Location Of Pain/Discomfort: Epigastric Quality Of Discomfort: "Pain" Associated Symptoms: Nausea, Vomiting Past Medical History Reviewed: Historical Data, Nursing Documentation, Vital Signs Vital Signs: Last Vital Signs Temp 98.2 F 10/16/18 14:44 Pulse 66 10/16/18 16:52 Resp 17 10/16/18 16:52 BP 120/78 10/16/18 16:52 Pulse Ox 99 10/16/18 16:52 - Medical History PMH: Arthritis, Bronchitis Surgical History: Cholecystectomy - [facility] Procedures (07/19/18) CONTROL BLEEDING IN PERITONEAL CAVITY, PERC ENDO APPROACH (07/19/18) RELEASE DUODENUM, PERCUTANEOUS ENDOSCOPIC APPROACH (07/19/18) RELEASE LARGE INTESTINE, PERCUTANEOUS ENDOSCOPIC APPROACH (07/19/18) RESECTION OF GALLBLADDER, PERCUTANEOUS ENDOSCOPIC APPROACH (07/19/18) ROBOTIC ASSISTED PROCEDURE OF TRUNK, PERC ENDO APPROACH (07/19/18) Family History: States: Unknown Family Hx - Social History Hx Alcohol Use: No Hx Substance Use: No - Immunization History Hx Tetanus Toxoid Vaccination: Yes (2015) Hx Influenza Vaccination: No Hx Pneumococcal Vaccination: No Review Of Systems Constitutional: Negative for: Fever, Chills Cardiovascular: Negative for: Chest Pain Respiratory: Negative for: Shortness of Breath Gastrointestinal: Positive for: Nausea, Vomiting, Abdominal Pain (epigastric). Negative for: Diarrhea Musculoskeletal: Positive for: Other (Groin pain). Negative for: Back Pain Neurological: Negative for: Weakness, Numbness Physical Exam - Physical Exam Appears: Non-toxic, No Acute Distress Skin: Warm, Dry, No Rash Head: Atraumatic, Normacephalic Eye(s): bilateral: Normal Inspection, PERRL, EOMI Neck: Normal ROM Chest: Symmetrical Cardiovascular: Rhythm Regular, No Murmur Respiratory: Normal Breath Sounds, No Accessory Muscle Use Gastrointestinal/Abdominal: Soft, No Tenderness, No Distention, No Guarding Extremity: Normal ROM (x 4), Tenderness (to right groin, reproducible with movement of the leg), No Deformity, No Swelling Pulses: Left Dorsalis Pedis: Normal, Right Dorsalis Pedis: Normal Neurological/Psych: Oriented x3, Normal Motor, Normal Sensation ED Course And Treatment - Laboratory Results Result Diagrams: 10/16/18 11:45 10/16/18 11:45 Lab Results: Total Bilirubin 0.3 mg/dL (0.2-1.3) 10/16/18 11:45 AST 30 U/L (14-36) 10/16/18 11:45 ALT 32 U/L (9-52) 10/16/18 11:45 Alkaline Phosphatase 107 U/L (38-126) 10/16/18 11:45 Total Protein 7.5 g/dL (6.3-8.3) 10/16/18 11:45 Albumin 4.1 g/dL (3.5-5.0) 10/16/18 11:45 Globulin 3.4 gm/dL (2.2-3.9) 10/16/18 11:45 Albumin/Globulin Ratio 1.2 (1.0-2.1) 10/16/18 11:45 Lipase 55 U/L (23-300) 10/16/18 11:45 Urine Color Yellow (YELLOW) 10/16/18 11:45 Urine Clarity Clear (Clear) 10/16/18 11:45 Urine pH 6.0 (5.0-8.0) 10/16/18 11:45 Ur Specific [place] 1.014 (1.003-1.030) 10/16/18 11:45 Urine Protein Negative mg/dL (NEGATIVE) 10/16/18 11:45 Urine Glucose (UA) Normal mg/dL (Normal) 10/16/18 11:45 Urine Ketones Negative mg/dL (NEGATIVE) 10/16/18 11:45 Urine Blood 1+ (NEGATIVE) H 10/16/18 11:45 Urine Nitrate Negative (NEGATIVE) 10/16/18 11:45 Urine Bilirubin Negative (NEGATIVE) 10/16/18 11:45 Urine Urobilinogen Normal mg/dL (0.2-1.0) 10/16/18 11:45 Ur Leukocyte Esterase 2+ Marlon/uL (Negative) H 10/16/18 11:45 Urine WBC (Auto) 13 /hpf (0-5) H 10/16/18 11:45 Urine RBC (Auto) 1 /hpf (0-3) 10/16/18 11:45 Ur Squamous Epith Cells 2 /hpf (0-5) 10/16/18 11:45 Urine Bacteria Occ (<OCC) H 10/16/18 11:45 O2 Sat by Pulse Oximetry: 99 (RA) Pulse Ox Interpretation: Normal - CT Scan/US CT Abdomen/Pelvis Other Rad Studies (CT/US): Read By Radiologist, Radiology Report Reviewed CT/US Interpretation: Accession No. : [id number]. Patient Name / ID : COLUMBA REICH / [id number]. Exam Date : 10/16/2018 14:55:43 ( Approved ). Study Comment : Sex / Age : F / 58Y. Creator : George Dawn. Dictator : Mauri Ramos MD. Executive Sales Manager : Base Filler Operator : Mauri Ramos MD. Approver2 : Report Date : 10/16/2018 15:04:26. My Comment : . Date of service: 10/16/2018. PROCEDURE: CT Abdomen and Pelvis with contrast. HISTORY: RLQ/right groin pain. COMPARISON: 04/29/2018. TECHNIQUE: Contrast dose: 100 mL Visipaque 320. Radiation dose: Total exam DLP = 1118.06 mGy-cm. This CT exam was performed using one or more of the following dose reduction techniques: Automated exposure control, adjustment of the mA and/or kV according to patient size, and/or use of iterative reconstruction technique. FINDINGS: LOWER THORAX: Unremarkable. LIVER: Unremarkable. No gross lesion or ductal dilatation. GALLBLADDER AND BILE DUCTS: Contracted gallbladder. Small calcified gallstones are identified. PANCREAS: No evidence of pancreatitis. There is a stable 13 mm lipoma at the junction of the pancreatic head and body. No pancreatic ductal dilatation.. SPLEEN: Unremarkable. ADRENALS: Unremarkable. No mass. KIDNEYS AND URETERS: Unremarkable. No hydronephrosis. No solid mass. VASCULATURE: Unremarkable. No aortic aneurysm. No aortic atherosclerotic calcification or mural plaque present. BOWEL: Unremarkable. No obstruction. No gross mural thickening. APPENDIX: Normal appendix. PERITONEUM: Unremarkable. No free fluid. No free air. LYMPH NODES: Unremarkable. No enlarged lymph nodes. BLADDER: Unremarkable. REPRODUCTIVE: Normal uterus. BONES: No acute fracture. OTHER FINDINGS: None. IMPRESSION: No acute abnormality. No evidence of inguinal hernia. Stable pancreatic lipoma. Progress Note: Labs and CT Abdomen/Pelvis ordered. Patient given 1 bolus IV fluids. UA shows +leuks, WBC, and occasional bacteria. Imaging reviewed with patient, all questions answered. Will d/c patient home with RX for Macrobid and Motrin/Tramadol for pain. Advised patient to follow up with PMD within 2 days. Disposition Counseled Patient/Family Regarding: Studies Performed, Diagnosis, Need For Followup, Rx Given - Disposition Disposition: HOME/ ROUTINE Disposition Time: 17:16 Condition: STABLE Additional Instructions: Follow up with your PMD within 1-2 days. Return to Ed if feel worse. Prescriptions: Nitrofurantoin Macrocrystals [Macrobid] 1 cap PO BID #14 cap Ibuprofen [Motrin Tab] 400 mg PO Q8 #30 tab traMADol [Ultram] 50 mg PO Q6 #10 tab Instructions: Urinary Tract Infections in Adults, Groin Strain Forms: [employer] (Georgian) Print Language: GUINEAN - Clinical Impression Clinical Impression: Right groin pain - PA / STATE EPIDEMIOLOGIST / Resident Statement MD/DO has reviewed & agrees with the documentation as recorded. - Scribe Statement The provider has reviewed the documentation as recorded by the Jw Sotelo All medical record entries made by the Jw were at my direction and personally dictated by me. I have reviewed the chart and agree that the record accurately reflects my personal performance of the history, physical exam, medical decision making, and the department course for this patient. I have also personally directed, reviewed, and agree with the discharge instructions and disposition.
== END 2018-10-16 17:36 | disposition home or self-care (01) ==
LOC: C.ER 11:03
DX: R10.31 Right lower quadrant pain (principal)
CPT/HCPCS: 74177; 80053; 81001; 83690; 85025; 96360; 99283; J7030; Q9966; Q9967

== ENCOUNTER 2018-10-25 15:01 | Inpatient (IN) | payer OTHER ==
[2018-10-25 15:02] VITALS: BMI 36.1
[2018-10-25] MEDS ORDERED: Sodium Chloride 0.9% 1,000 ML IV ONE (15:42)
[2018-10-25 16:00] LABS: VENOUS BLOOD GAS PCO2 39 mmHg (40-60); VENOUS BLOOD GAS PO2 63 mm/Hg (30-55); VENOUS BLOOD PH 7.45 (7.32-7.43)
[2018-10-25 16:01] LABS: BASO # 0.1 K/uL (0.0-0.2); BASO % 0.3 % (0.0-2.0); EOS % 0.2 % (0.0-4.0); HEMOGLOBIN 12.9 g/dL (11.0-16.0); LYMPH # 1.1 K/uL (1.0-4.3); LYMPH % 6.2 % (20.0-40.0); MEAN CORPUSCULAR HEMOGLOBIN 27.7 pg (27.0-31.0); MEAN CORPUSCULAR HGB CONC 32.1 g/dL (33.0-37.0); MONO # 1.3 K/uL (0.0-0.8); MONO % 7.3 % (0.0-10.0); NEUT # 15.1 K/uL (1.8-7.0); PLATELET COUNT 337 K/uL (130-400); RBC 4.67 Mil/uL (3.80-5.20); RED CELL DISTRIBUTION WIDTH 15.4 % (11.5-14.5)
[2018-10-25 16:06] LABS: WHITE BLOOD COUNT 17.6 K/uL (4.8-10.8)
[2018-10-25] MEDS ORDERED: Sodium Chloride 0.9% 1,000 ML ONE ×2 (16:18→18:03)
[2018-10-25 16:20] LABS: ALB/GLOB RATIO 1.2 (1.0-2.1); ALBUMIN 4.7 g/dL (3.5-5.0); ALT/SGPT 38 U/L (9-52); AST/SGOT 60 U/L (14-36); BLOOD UREA NITROGEN 12 mg/dL (7-17); CALCIUM 8.9 mg/dl (8.6-10.4); GFR NON-AFRICAN AMERICAN > 60
[2018-10-25 16:23] LABS: LYMPHOCYTE 5 % (20-40); MONOCYTE 7 % (0-10); NEUTROPHIL 88 % (50-75); PLATELET ESTIMATE NORMAL (NORMAL); TOTAL CELLS COUNTED 100
[2018-10-25] MEDS ORDERED: cefTRIAXone IV 1 gm in Dextros 50 ML IV ONE (16:35)
[2018-10-25 16:38] LABS: SQUAMOUS EPITHIAL < 1 /hpf (0-5); URINE BACTERIA MANY (<OCC); URINE BILIRUBIN NEGATIVE (NEGATIVE); URINE BLOOD 2+ (NEGATIVE); URINE CLARITY Hazy (Clear); URINE COLOR Yellow (YELLOW); URINE GLUCOSE (UA) NORMAL (Normal); URINE LEUKOCYTE ESTERASE 2+ Leu/uL (Negative); URINE PROTEIN NEGATIVE (NEGATIVE); URINE UROBILINOGEN NORMAL mg/dL (0.2-1.0)
[2018-10-25] MEDS ORDERED: Potassium Chloride 20 mEq ER Tab PO STA (16:47)
[2018-10-25] MEDS ORDERED: Potassium Chloride 20 mEq ER Tab PO ONE (16:59)
--- NOTE | 2018-10-25 17:14 | C.PDOC ---
History Of Present Illness 58 year old female is sent to the ED from clinic for a possible admission. Patient was evaluated and diagnosed with a urinary tract infection 3 days ago and given prescription for Macrobid. Patient was unable to fill the prescription , stating the medicine was too expensive. Patient reports experiencing fever, nausea and dysuria and returns to the ED for further evaluation. She denies abdominal pain, back pain, vomiting. Time Seen by Provider: 10/25/18 15:37 Chief Complaint (Nursing): Female Genitourinary History Per: Patient History/Exam Limitations: no limitations Onset/Duration Of Symptoms: Days Current Symptoms Are (Timing): Still Present Associated Symptoms: Fever, Nausea, Urinary Symptoms. denies: Vomiting, Back Pain Additional History Per: Patient Abnormal Vaginal Bleeding: No Past Medical History Reviewed: Historical Data, Nursing Documentation, Vital Signs Vital Signs: Last Vital Signs Temp 99.0 F 10/25/18 15:18 Pulse 129 H 10/25/18 15:18 Resp 20 10/25/18 15:18 BP 130/88 10/25/18 15:18 Pulse Ox 97 10/25/18 15:18 - Medical History PMH: Arthritis, Bronchitis Surgical History: Cholecystectomy - [facility] Procedures (07/19/18) CONTROL BLEEDING IN PERITONEAL CAVITY, PERC ENDO APPROACH (07/19/18) RELEASE DUODENUM, PERCUTANEOUS ENDOSCOPIC APPROACH (07/19/18) RELEASE LARGE INTESTINE, PERCUTANEOUS ENDOSCOPIC APPROACH (07/19/18) RESECTION OF GALLBLADDER, PERCUTANEOUS ENDOSCOPIC APPROACH (07/19/18) ROBOTIC ASSISTED PROCEDURE OF TRUNK, PERC ENDO APPROACH (07/19/18) Family History: States: Unknown Family Hx - Social History Hx Alcohol Use: No Hx Substance Use: No - Immunization History Hx Tetanus Toxoid Vaccination: Yes (2015) Hx Influenza Vaccination: No Hx Pneumococcal Vaccination: Yes Review Of Systems Constitutional: Positive for: Fever Gastrointestinal: Positive for: Nausea. Negative for: Vomiting, Abdominal Pain Genitourinary: Positive for: Dysuria Musculoskeletal: Negative for: Back Pain Physical Exam - Physical Exam Appears: Non-toxic, No Acute Distress, Other (obese, appears slightly uncomf ortable) Skin: Normal Color, Warm, Dry Head: Atraumatic, Normacephalic Eye(s): bilateral: Normal Inspection Oral Mucosa: Moist Neck: Supple Chest: Symmetrical, No Deformity, No Tenderness Cardiovascular: Rhythm Regular, No Murmur, Other (tachycardia ) Respiratory: Normal Breath Sounds, No Rales, No Rhonchi, No Wheezing Gastrointestinal/Abdominal: Soft, Tenderness (suprapubic ), No Guarding, No Rebound, Other (laparoscopic cholecystectomy scars noted. negative McBurney's point tenderness, negative Simental's sign ) Back: CVA Tenderness (right-sided ) Extremity: Normal ROM, Capillary Refill (less than 2 seconds ) Neurological/Psych: Oriented x3, Normal Speech, Normal Cognition ED Course And Treatment - Laboratory Results Result Diagrams: 10/25/18 15:54 10/25/18 15:54 Lab Results: pO2 63 mm/Hg (30-55) H 10/25/18 15:56 VBG pH 7.45 (7.32-7.43) H 10/25/18 15:56 VBG pCO2 39 mmHg (40-60) L 10/25/18 15:56 VBG HCO3 27.1 mmol/L 10/25/18 15:56 VBG Total CO2 28.3 mmol/L (22-28) H 10/25/18 15:56 VBG O2 Sat (Calc) 94.9 % (40-65) H 10/25/18 15:56 VBG Base Excess 3.0 mmol/L (0.0-2.0) H 10/25/18 15:56 VBG Potassium 3.3 mmol/L (3.6-5.2) L 10/25/18 15:56 Sodium 140.0 mmol/l (132-148) 10/25/18 15:56 Chloride 107.0 mmol/L (98-107) 10/25/18 15:56 Glucose 128 mg/dl (65-105) H 10/25/18 15:56 Lactate 1.9 mmol/L (0.7-2.1) 10/25/18 15:56 Total Bilirubin 0.3 mg/dL (0.2-1.3) 10/25/18 15:54 AST 60 U/L (14-36) H D 10/25/18 15:54 ALT 38 U/L (9-52) 10/25/18 15:54 Alkaline Phosphatase 151 U/L (38-126) H D 10/25/18 15:54 Total Protein 8.7 g/dL (6.3-8.3) H 10/25/18 15:54 Albumin 4.7 g/dL (3.5-5.0) 10/25/18 15:54 Globulin 4.0 gm/dL (2.2-3.9) H 10/25/18 15:54 Albumin/Globulin Ratio 1.2 (1.0-2.1) 10/25/18 15:54 Urine Color Yellow (YELLOW) 10/25/18 16:06 Urine Clarity Hazy (Clear) 10/25/18 16:06 Urine pH 6.0 (5.0-8.0) 10/25/18 16:06 Ur Specific [place] 1.008 (1.003-1.030) 10/25/18 16:06 Urine Protein Negative mg/dL (NEGATIVE) 10/25/18 16:06 Urine Glucose (UA) Normal mg/dL (Normal) 10/25/18 16:06 Urine Ketones Negative mg/dL (NEGATIVE) 10/25/18 16:06 Urine Blood 2+ (NEGATIVE) H 10/25/18 16:06 Urine Nitrate Positive (NEGATIVE) H 10/25/18 16:06 Urine Bilirubin Negative (NEGATIVE) 10/25/18 16:06 Urine Urobilinogen Normal mg/dL (0.2-1.0) 10/25/18 16:06 Ur Leukocyte Esterase 2+ Marlon/uL (Negative) H 10/25/18 16:06 Urine WBC (Auto) 88 /hpf (0-5) H 10/25/18 16:06 Urine RBC (Auto) 14 /hpf (0-3) H 10/25/18 16:06 Ur Squamous Epith Cells < 1 /hpf (0-5) 10/25/18 16:06 Urine Bacteria Many (<OCC) H 10/25/18 16:06 O2 Sat by Pulse Oximetry: 97 (on RA ) Pulse Ox Interpretation: Normal Progress Note: Blood work, UA, Ucx ordered. Patient given IV NS bolus, IV r ocephin. No prior Ucx available. - Physician Consult Information Physician Contacted: Umang Hall Outcome Of Conversation: Discussed patient with hospitalist, agrees with admission for uti/pyelonephritis - will be under Dr. Clinton's name Disposition - Disposition - Scribe Statement The provider has reviewed the documentation as recorded by the Scribe (Marielena Hall) Provider Attestation: All medical record entries made by the Scribe were at my direction and personally dictated by me. I have reviewed the chart and agree that the record accurately reflects my personal performance of the history, physical exam, medical decision making, and the department course for this patient. I have also personally directed, reviewed, and agree with the discharge instructions and disposition.
--- NOTE | 2018-10-25 17:14 | C.PDOC ---
History Of Present Illness 58 year old female is sent to the ED from clinic for a possible admission. Patient was evaluated and diagnosed with a urinary tract infection 3 days ago and given prescription for Macrobid. Patient was unable to fill the prescription , stating the medicine was too expensive. Patient reports experiencing fever, nausea and dysuria and returns to the ED for further evaluation. She denies abdominal pain, back pain, vomiting. Time Seen by Provider: 10/25/18 15:37 Chief Complaint (Nursing): Female Genitourinary History Per: Patient History/Exam Limitations: no limitations Onset/Duration Of Symptoms: Days Associated Symptoms: Fever, Nausea, Urinary Symptoms Past Medical History Reviewed: Historical Data, Nursing Documentation, Vital Signs Vital Signs: Last Vital Signs Temp 99.0 F 10/25/18 15:18 Pulse 129 H 10/25/18 15:18 Resp 20 10/25/18 15:18 BP 130/88 10/25/18 15:18 Pulse Ox 97 10/25/18 15:18 - Medical History PMH: Arthritis, Bronchitis Surgical History: Cholecystectomy - [facility] Procedures (07/19/18) CONTROL BLEEDING IN PERITONEAL CAVITY, PERC ENDO APPROACH (07/19/18) RELEASE DUODENUM, PERCUTANEOUS ENDOSCOPIC APPROACH (07/19/18) RELEASE LARGE INTESTINE, PERCUTANEOUS ENDOSCOPIC APPROACH (07/19/18) RESECTION OF GALLBLADDER, PERCUTANEOUS ENDOSCOPIC APPROACH (07/19/18) ROBOTIC ASSISTED PROCEDURE OF TRUNK, PERC ENDO APPROACH (07/19/18) Family History: States: Unknown Family Hx - Social History Hx Alcohol Use: No Hx Substance Use: No - Immunization History Hx Tetanus Toxoid Vaccination: Yes (2015) Hx Influenza Vaccination: No Hx Pneumococcal Vaccination: Yes Review Of Systems Constitutional: Positive for: Fever Gastrointestinal: Positive for: Nausea Genitourinary: Positive for: Dysuria ED Course And Treatment - Laboratory Results Result Diagrams: 10/25/18 15:54 10/25/18 15:54 Lab Results: pO2 63 mm/Hg (30-55) H 10/25/18 15:56 VBG pH 7.45 (7.32-7.43) H 10/25/18 15:56 VBG pCO2 39 mmHg (40-60) L 10/25/18 15:56 VBG HCO3 27.1 mmol/L 10/25/18 15:56 VBG Total CO2 28.3 mmol/L (22-28) H 10/25/18 15:56 VBG O2 Sat (Calc) 94.9 % (40-65) H 10/25/18 15:56 VBG Base Excess 3.0 mmol/L (0.0-2.0) H 10/25/18 15:56 VBG Potassium 3.3 mmol/L (3.6-5.2) L 10/25/18 15:56 Sodium 140.0 mmol/l (132-148) 10/25/18 15:56 Chloride 107.0 mmol/L (98-107) 10/25/18 15:56 Glucose 128 mg/dl (65-105) H 10/25/18 15:56 Lactate 1.9 mmol/L (0.7-2.1) 10/25/18 15:56 Total Bilirubin 0.3 mg/dL (0.2-1.3) 10/25/18 15:54 AST 60 U/L (14-36) H D 10/25/18 15:54 ALT 38 U/L (9-52) 10/25/18 15:54 Alkaline Phosphatase 151 U/L (38-126) H D 10/25/18 15:54 Total Protein 8.7 g/dL (6.3-8.3) H 10/25/18 15:54 Albumin 4.7 g/dL (3.5-5.0) 10/25/18 15:54 Globulin 4.0 gm/dL (2.2-3.9) H 10/25/18 15:54 Albumin/Globulin Ratio 1.2 (1.0-2.1) 10/25/18 15:54 Urine Color Yellow (YELLOW) 10/25/18 16:06 Urine Clarity Hazy (Clear) 10/25/18 16:06 Urine pH 6.0 (5.0-8.0) 10/25/18 16:06 Ur Specific [place] 1.008 (1.003-1.030) 10/25/18 16:06 Urine Protein Negative mg/dL (NEGATIVE) 10/25/18 16:06 Urine Glucose (UA) Normal mg/dL (Normal) 10/25/18 16:06 Urine Ketones Negative mg/dL (NEGATIVE) 10/25/18 16:06 Urine Blood 2+ (NEGATIVE) H 10/25/18 16:06 Urine Nitrate Positive (NEGATIVE) H 10/25/18 16:06 Urine Bilirubin Negative (NEGATIVE) 10/25/18 16:06 Urine Urobilinogen Normal mg/dL (0.2-1.0) 10/25/18 16:06 Ur Leukocyte Esterase 2+ Marlon/uL (Negative) H 10/25/18 16:06 Urine WBC (Auto) 88 /hpf (0-5) H 10/25/18 16:06 Urine RBC (Auto) 14 /hpf (0-3) H 10/25/18 16:06 Ur Squamous Epith Cells < 1 /hpf (0-5) 10/25/18 16:06 Urine Bacteria Many (<OCC) H 10/25/18 16:06 O2 Sat by Pulse Oximetry: 97 Progress Note: Blood work, UA, Ucx ordered. Patient given IV NS bolus, IV rocephin. No prior Ucx available. - Physician Consult Information Physician Contacted: Umang Hall Outcome Of Conversation: Discussed patient with hospitalist, agrees with admission for uti/pyelonephritis - will be under Dr. Clinton's name. Disposition - Disposition - Scribe Statement The provider has reviewed the documentation as recorded by the Scribe (Marielena aHll) Provider Attestation: All medical record entries made by the Scribe were at my direction and personally dictated by me. I have reviewed the chart and agree that the record accurately reflects my personal performance of the history, physical exam, medical decision making, and the department course for this patient. I have also personally directed, reviewed, and agree with the discharge instructions and disposition.
--- NOTE | 2018-10-25 17:55 | CP.PCM.HP ---
<Ozzy Stephenson - Last Filed: 10/25/18 17:50> History of Present Illness - History of Present Illness History of Present Illness: This is a 58 yo female, originally from [facility], with past medical hx of obesity and cholecystitis, presenting to ER with chief complaint of fever and right fl ank pain. Patient is cuban speaking only. Patient is present with her partner who provides translation. Pt reports that she came to [facility] [place] ER on 10/16 and was dx with UTI. Was given rx for macrobid and tramadol, but when patient went to fill it, was given sorto of 80 dollars and could not get it because it was too expensive. All this time, patient was experiencing dysuria and patient at about noon today started experiencing subjective fevers and right flank and abdominal pain. Patient came by bus with partner for appt at [facility] in [facility]. At that time, vitals were taken which showed HR of 140 and fever. Patient sent up from basement clinic to ER. Currently denies chest pain, sob, headache. PMD: [facility] - [facility] PMH: obesity, cholecystitis PSH: robotic cholecystectomy - july 2018 Allergies: nolotil FH: DM in family Current meds: none Social hx: No smoking, drinking, drug use. Born in [facility]. Works in factory. 3 children. Lives with male partner. Present on Admission - Present on Admission Any Indicators Present on Admission: No History of DVT/PE: No History of Uncontrolled Diabetes: No Urinary Catheter: No Decubitus Ulcer Present: No Review of Systems - Constitutional Constitutional: Chills, Fever. absent: Headache - EENT Eyes: absent: Blind Spots, Blurred Vision Ears: absent: Ear Pain, Tinnitus Nose/Mouth/Throat: absent: Nasal Congestion, Nasal Discharge - Cardiovascular Cardiovascular: absent: Chest Pain, Chest Pain at Rest, Dyspnea - Respiratory Respiratory: absent: Cough, Dyspnea - Gastrointestinal Gastrointestinal: Abdominal Pain. absent: Diarrhea - Genitourinary Genitourinary: Dysuria. absent: Hematuria - Musculoskeletal Musculoskeletal: Back Pain. absent: Abnormal Gait - Neurological Neurological: absent: Abnormal Gait, Abnormal Hearing - Psychiatric Psychiatric: absent: Visual Hallucinations, Tactile Hallucinations - Endocrine Endocrine: absent: Heat Intolorance, Polyuria - Hematologic/Lymphatic Hematologic: absent: Easy Bleeding, Easy Bruising Past Patient History - Infectious Disease Hx of Infectious Diseases: None - Tetanus Immunizations Tetanus Immunization: Unknown - Past Medical History & Family History Past Medical History?: Yes - Past Social History Smoking Status: Never Smoked Chewing Tobacco Use: No Cigar Use: No Alcohol: None Drugs: Denies Home Situation {Lives}: With Family - PULMONARY Hx Bronchitis: Yes - MUSCULOSKELETAL/RHEUMATOLOGICAL Hx Arthritis: Yes - PSYCHIATRIC Hx Substance Use: No - SURGICAL HISTORY Hx Cholecystectomy: Yes - ANESTHESIA Hx Anesthesia: Yes Hx Anesthesia Reactions: No Hx Malignant Hyperthermia: No Meds Allergies/Adverse Reactions: Allergies Allergy/AdvReac Type Severity Reaction Status Date / Time NOLOTIL Allergy Uncoded 10/25/18 15:24 Physical Exam - Constitutional Appears: Non-toxic, No Acute Distress - Head Exam Head Exam: ATRAUMATIC, NORMAL INSPECTION, NORMOCEPHALIC - Eye Exam Eye Exam: EOMI - ENT Exam ENT Exam: Mucous Membranes Moist - Neck Exam Neck exam: Positive for: Full Rom, Normal Inspection - Respiratory Exam Respiratory Exam: NORMAL BREATHING PATTERN. absent: Respiratory Distress - Cardiovascular Exam Cardiovascular Exam: +S1, +S2 - GI/Abdominal Exam GI & Abdominal Exam: Normal Bowel Sounds, Soft, Tenderness - Extremities Exam Extremities exam: Positive for: full ROM, normal inspection - Back Exam Back exam: CVA tenderness (R) - Neurological Exam Neurological exam: Alert, CN II-XII Intact, Oriented x3 - Psychiatric Exam Psychiatric exam: Normal Affect, Normal Mood - Skin Skin Exam: Dry, Intact, Normal Color, Warm Results - Vital Signs Recent Vital Signs: Last Vital Signs Temp 99.0 F 10/25/18 15:18 Pulse 129 H 10/25/18 15:18 Resp 20 10/25/18 15:18 BP 130/88 10/25/18 15:18 Pulse Ox 97 10/25/18 17:48 - Labs Result Diagrams: 10/25/18 15:54 10/25/18 15:54 Labs: Laboratory Results - last 24 hr 10/25/18 10/25/18 10/25/18 15:54 15:54 15:56 WBC 17.6 H D RBC 4.67 Hgb 12.9 Hct 40.2 MCV 86.0 MCH 27.7 MCHC 32.1 L RDW 15.4 H Plt Count 337 MPV 9.0 Neut % (Auto) 86.0 H Lymph % (Auto) 6.2 L Craven % (Auto) 7.3 Eos % (Auto) 0.2 Baso % (Auto) 0.3 Neut # (Auto) 15.1 H Lymph # (Auto) 1.1 Craven # (Auto) 1.3 H Eos # (Auto) 0.0 Baso # (Auto) 0.1 Neutrophils % (Manual) 88 H Lymphocytes % (Manual) 5 L Monocytes % (Manual) 7 Platelet Estimate Normal RBC Morphology Normal pO2 63 H VBG pH 7.45 H VBG pCO2 39 L VBG HCO3 27.1 VBG Total CO2 28.3 H VBG O2 Sat (Calc) 94.9 H VBG Base Excess 3.0 H VBG Potassium 3.3 L Glucose 128 H Lactate 1.9 Sodium 138 140.0 Potassium 3.5 L Chloride 104 107.0 Carbon Dioxide 24 Anion Gap 13 BUN 12 Creatinine 0.5 L Est GFR ( Amer) > 60 Est GFR (Non-Af Amer) > 60 Random Glucose 129 H D Hemoglobin A1c Calcium 8.9 Total Bilirubin 0.3 AST 60 H D ALT 38 Alkaline Phosphatase 151 H D Total Protein 8.7 H Albumin 4.7 Globulin 4.0 H Albumin/Globulin Ratio 1.2 Venous Blood Potassium 3.3 L Urine Color Urine Clarity Urine pH Ur Specific [place] Urine Protein Urine Glucose (UA) Urine Ketones Urine Blood Urine Nitrate Urine Bilirubin Urine Urobilinogen Ur Leukocyte Esterase Urine WBC (Auto) Urine RBC (Auto) Ur Squamous Epith Cells Urine Bacteria 10/25/18 10/25/18 16:06 17:16 WBC RBC Hgb Hct MCV MCH MCHC RDW Plt Count MPV Neut % (Auto) Lymph % (Auto) Craven % (Auto) Eos % (Auto) Baso % (Auto) Neut # (Auto) Lymph # (Auto) Craven # (Auto) Eos # (Auto) Baso # (Auto) Neutrophils % (Manual) Lymphocytes % (Manual) Monocytes % (Manual) Platelet Estimate RBC Morphology pO2 VBG pH VBG pCO2 VBG HCO3 VBG Total CO2 VBG O2 Sat (Calc) VBG Base Excess VBG Potassium Glucose Lactate Sodium Potassium Chloride Carbon Dioxide Anion Gap BUN Creatinine Est GFR ( Amer) Est GFR (Non-Af Amer) Random Glucose Hemoglobin A1c 5.9 Calcium Total Bilirubin AST ALT Alkaline Phosphatase Total Protein Albumin Globulin Albumin/Globulin Ratio Venous Blood Potassium Urine Color Yellow Urine Clarity Hazy Urine pH 6.0 Ur Specific [place] 1.008 Urine Protein Negative Urine Glucose (UA) Normal Urine Ketones Negative Urine Blood 2+ H Urine Nitrate Positive H Urine Bilirubin Negative Urine Urobilinogen Normal Ur Leukocyte Esterase 2+ H Urine WBC (Auto) 88 H Urine RBC (Auto) 14 H Ur Squamous Epith Cells < 1 Urine Bacteria Many H Assessment & Plan - Assessment and Plan (Free Text) Assessment: This is a 58 yo female with 1. Right flank pain -concerning for pyelonephritis -will order ct scan w/o contrast -start rocephin 1 g bid -NS 100 cc/hr 2. Hypokalemia -give KDur 20 meq -recheck am labs 3. IGT -diet and lifestyle modifications 4. tachycardia -will check troponin 5. GI/DVT ppx -SCDs discussed with Dr. Munson <Mauri Munson - Last Filed: 10/25/18 18:42> Results - Vital Signs Recent Vital Signs: Last Vital Signs Temp 99.0 F 10/25/18 15:18 Pulse 129 H 10/25/18 15:18 Resp 20 10/25/18 15:18 BP 130/88 10/25/18 15:18 Pulse Ox 97 10/25/18 17:48 - Labs Result Diagrams: 10/25/18 15:54 10/25/18 15:54 Labs: Laboratory Results - last 24 hr 10/25/18 10/25/18 10/25/18 15:54 15:54 15:56 WBC 17.6 H D RBC 4.67 Hgb 12.9 Hct 40.2 MCV 86.0 MCH 27.7 MCHC 32.1 L RDW 15.4 H Plt Count 337 MPV 9.0 Neut % (Auto) 86.0 H Lymph % (Auto) 6.2 L Craven % (Auto) 7.3 Eos % (Auto) 0.2 Baso % (Auto) 0.3 Neut # (Auto) 15.1 H Lymph # (Auto) 1.1 Craven # (Auto) 1.3 H Eos # (Auto) 0.0 Baso # (Auto) 0.1 Neutrophils % (Manual) 88 H Lymphocytes % (Manual) 5 L Monocytes % (Manual) 7 Platelet Estimate Normal RBC Morphology Normal pO2 63 H VBG pH 7.45 H VBG pCO2 39 L VBG HCO3 27.1 VBG Total CO2 28.3 H VBG O2 Sat (Calc) 94.9 H VBG Base Excess 3.0 H VBG Potassium 3.3 L Glucose 128 H Lactate 1.9 Sodium 138 140.0 Potassium 3.5 L Chloride 104 107.0 Carbon Dioxide 24 Anion Gap 13 BUN 12 Creatinine 0.5 L Est GFR ( Amer) > 60 Est GFR (Non-Af Amer) > 60 Random Glucose 129 H D Hemoglobin A1c Calcium 8.9 Total Bilirubin 0.3 AST 60 H D ALT 38 Alkaline Phosphatase 151 H D Troponin I Total Protein 8.7 H Albumin 4.7 Globulin 4.0 H Albumin/Globulin Ratio 1.2 Venous Blood Potassium 3.3 L Urine Color Urine Clarity Urine pH Ur Specific [place] Urine Protein Urine Glucose (UA) Urine Ketones Urine Blood Urine Nitrate Urine Bilirubin Urine Urobilinogen Ur Leukocyte Esterase Urine WBC (Auto) Urine RBC (Auto) Ur Squamous Epith Cells Urine Bacteria 10/25/18 10/25/18 10/25/18 16:06 17:16 17:47 WBC RBC Hgb Hct MCV MCH MCHC RDW Plt Count MPV Neut % (Auto) Lymph % (Auto) Craven % (Auto) Eos % (Auto) Baso % (Auto) Neut # (Auto) Lymph # (Auto) Craven # (Auto) Eos # (Auto) Baso # (Auto) Neutrophils % (Manual) Lymphocytes % (Manual) Monocytes % (Manual) Platelet Estimate RBC Morphology pO2 VBG pH VBG pCO2 VBG HCO3 VBG Total CO2 VBG O2 Sat (Calc) VBG Base Excess VBG Potassium Glucose Lactate Sodium Potassium Chloride Carbon Dioxide Anion Gap BUN Creatinine Est GFR ( Amer) Est GFR (Non-Af Amer) Random Glucose Hemoglobin A1c 5.9 Calcium Total Bilirubin AST ALT Alkaline Phosphatase Troponin I < 0.0120 Total Protein Albumin Globulin Albumin/Globulin Ratio Venous Blood Potassium Urine Color Yellow Urine Clarity Hazy Urine pH 6.0 Ur Specific [place] 1.008 Urine Protein Negative Urine Glucose (UA) Normal Urine Ketones Negative Urine Blood 2+ H Urine Nitrate Positive H Urine Bilirubin Negative Urine Urobilinogen Normal Ur Leukocyte Esterase 2+ H Urine WBC (Auto) 88 H Urine RBC (Auto) 14 H Ur Squamous Epith Cells < 1 Urine Bacteria Many H Attending/Attestation - Attestation I have personally seen and examined this patient.: Yes I have fully participated in the care of the patient.: Yes I have reviewed all pertinent clinical information: Yes Notes (Text): 10/25/18 18:39 Medical attending: Patient was seen and examined by me. Agree with the above note by the resident The patient was in the ER for UTI not to long ago - and she was given macrobid as well as toradol prescriptions and I suspect there mayhave been something lost in translation as she did not fill any of these. Reguardless she has flank pain bilaterally with the R > L. The UA is certaitnly concerning for a UTI and for the time being will give slow IVF as well Rocpehin IV BID 1g, There were already blood and urine cultures drawn Because of the exam findings as well as the UA will check a CT. It was ordered without contrast since she told us she gets nervous with the contrast Mauri Munson
[2018-10-25] MEDS: Sodium Chloride 0.9% 1,000 ML IV SCH (18:03)
[2018-10-26 00:18] VITALS: RESP 20
[2018-10-26] MEDS: Sodium Chloride 0.9% 1,000 ML IV SCH ×4 (03:30→22:32)
[2018-10-26 07:33] LABS: BASO % 0.5 % (0.0-2.0); EOS % 0.3 % (0.0-4.0); HEMOGLOBIN 11.9 g/dL (11.0-16.0); LYMPH # 1.3 K/uL (1.0-4.3); LYMPH % 15.4 % (20.0-40.0); MEAN CELL VOLUME 86.2 fL (81.0-99.0); MEAN CORPUSCULAR HEMOGLOBIN 28.3 pg (27.0-31.0); MEAN CORPUSCULAR HGB CONC 32.8 g/dL (33.0-37.0); MEAN PLATELET VOLUME 8.7 fL (7.2-11.7); MONO # 0.6 K/uL (0.0-0.8); MONO % 7.1 % (0.0-10.0); NEUT # 6.7 K/uL (1.8-7.0); NEUT % 76.7 % (50.0-75.0); RBC 4.2 Mil/uL (3.80-5.20); RED CELL DISTRIBUTION WIDTH 15.3 % (11.5-14.5)
[2018-10-26 07:34] LABS: WHITE BLOOD COUNT 8.7 K/uL (4.8-10.8)
[2018-10-26 07:48] LABS: ALB/GLOB RATIO 1.1 (1.0-2.1); ALBUMIN 3.9 g/dL (3.5-5.0); ALT/SGPT 56 U/L (9-52); AST/SGOT 53 U/L (14-36); BLOOD UREA NITROGEN 8 mg/dL (7-17); CALCIUM 8.1 mg/dl (8.6-10.4); GFR NON-AFRICAN AMERICAN > 60
--- NOTE | 2018-10-26 09:40 | CP.PCM.PN ---
<Ryland Woodard - Last Filed: 10/26/18 15:54> Subjective - Date & Time of Evaluation Date of Evaluation: 10/26/18 Time of Evaluation: 09:40 - Subjective Subjective: PGY-1 Medicine Progress Note for Dr. Munson Patient seen and examined at bedside this AM, in no acute distress. Pt spiked fever overnight, Tmax of 102.4. Continues to have dysuria, suprapubic tenderness, some R sided flank pain although improved from day prior. No chills, headaches, dizziness, chest pain, palpitations, abdominal pain, n/v/d/c. 12 pt ROS reviewed and otherwise negative. at bedside provides translation, states patient was diagnosed with UTI previously but unable to comply with medications as they could not afford them. Neither patient nor are currently working. Objective - Vital Signs/Intake and Output Vital Signs (last 24 hours): Temp Pulse Resp BP Pulse Ox 98.2 F 82 20 115/76 96 10/26/18 07:44 10/26/18 07:44 10/26/18 07:44 10/26/18 07:44 10/26/18 07:44 - Medications Medications: Current Medications Enoxaparin Sodium (Lovenox) 40 mg SC DAILY STEPHANI Sodium Chloride (Sodium Chloride 0.9%) 1,000 mls @ 100 mls/hr IV .Q10H STEPHANI Last Admin: 10/26/18 03:30 Dose: Not Given Ceftriaxone Sodium 1 gm/ (Sodium Chloride) 100 mls @ 100 mls/hr IVPB Q12H STEPHANI; Protocol Last Admin: 10/26/18 06:07 Dose: 100 mls/hr - Labs Labs: 10/26/18 07:19 10/26/18 07:19 - Constitutional Appears: Non-toxic, No Acute Distress - Head Exam Head Exam: ATRAUMATIC, NORMAL INSPECTION, NORMOCEPHALIC - Eye Exam Eye Exam: EOMI, Normal appearance, PERRL Pupil Exam: NORMAL ACCOMODATION - ENT Exam ENT Exam: Mucous Membranes Moist, Normal Exam - Neck Exam Neck Exam: Full ROM, Normal Inspection. absent: Tenderness - Respiratory Exam Respiratory Exam: Clear to Ausculation Bilateral, NORMAL BREATHING PATTERN. absent: Accessory Muscle Use, Rales, Rhonchi, Wheezes, Respiratory Distress, Stridor - Cardiovascular Exam Cardiovascular Exam: REGULAR RHYTHM, +S1, +S2 - GI/Abdominal Exam GI & Abdominal Exam: Soft, Tenderness (suprapubic), Normal Bowel Sounds. absent: Distended, Firm, Guarding, Rebound - Extremities Exam Extremities Exam: Full ROM, Normal Capillary Refill, Normal Inspection. absent: Calf Tenderness, Pedal Edema - Back Exam Back Exam: CVA tenderness (R), NORMAL INSPECTION - Neurological Exam Neurological Exam: Alert, Awake, Oriented x3 - Skin Skin Exam: Dry, Intact, Normal Color, Warm Assessment and Plan - Assessment and Plan (Free Text) Assessment: 58 year old F presenting with UTI, R sided flank pain, r/o pyelone phritis Plan: Pyelonephritis -febrile overnight, tmax 102.4 -endorses dysuria, mild suprapubic tenderness -CVA tenderness, R -leukocytosis normalized: 17.6 to 8.7 (10/26) CT abdomen/pelvis w/o contrast: somewhat hypertrophied asymmetric R kidney with perinephric fat stranding. Correlation with contrast-enhanced CT is recommended. Contracted gallbladder with cholelithiasis. 1.5 cm fat containing lesion near head of pancreas. 2 mm nodular denisty within medial aspect of RLL lung. Fecal retention in colon. -rocephin 1 gm IV daily -IVF PPx, Diet, Disposition -DVT ppx: scds, lovenox -GI ppx: not indicated at this time -Diet: HHD Case discussed with Dr. Jeimy Woodard DO, PGY-1 <Mauri Munson H - Last Filed: 10/26/18 17:14> Objective - Vital Signs/Intake and Output Vital Signs (last 24 hours): Temp Pulse Resp BP Pulse Ox 100.5 F H 107 H 20 136/86 100 10/26/18 15:00 10/26/18 15:00 10/26/18 15:00 10/26/18 15:00 10/26/18 15:00 - Medications Medications: Current Medications Enoxaparin Sodium (Lovenox) 40 mg SC DAILY [facility] Last Admin: 10/26/18 10:04 Dose: 40 mg Sodium Chloride (Sodium Chloride 0.9%) 1,000 mls @ 100 mls/hr IV .Q10H [facility] Last Admin: 10/26/18 13:30 Dose: Not Given Ceftriaxone Sodium 1 gm/ (Sodium Chloride) 100 mls @ 100 mls/hr IVPB Q12H [facility]; Protocol Last Admin: 10/26/18 06:07 Dose: 100 mls/hr - Labs Labs: 10/26/18 07:19 10/26/18 07:19 Attending/Attestation - Attestation I have personally seen and examined this patient.: Yes I have fully participated in the care of the patient.: Yes I have reviewed all pertinent clinical information, including history, physical exam and plan: Yes Notes (Text): 10/26/18 17:10 Medical attending: Patient was seen and examined by me. Agree with the above note by the resident The patient was not in any acute distress when I came and saw her. She still has some R flank tenderness with palpation however not severely so. The WBC has decreased. Overnight she did spike a temperature. Overall she reports feeling better however we should wait for the cultures to return at this time Mauri Munson
--- NOTE | 2018-10-26 09:53 | CT ---
Date of service: 10/25/2018 PROCEDURE: CT Abdomen and Pelvis without intravenous contrast HISTORY: right flank pain; concern for pyelonephritis COMPARISON: None. TECHNIQUE: Multiple contiguous axial images were performed through the abdomen and pelvis without the use of intravenous contrast. Subsequently, sagittal and coronal reformatted images were obtained. Radiation dose: Total exam DLP = 1052.9 mGy-cm. This CT exam was performed using one or more of the following dose reduction techniques: Automated exposure control, adjustment of the mA and/or kV according to patient size, and/or use of iterative reconstruction technique. FINDINGS: LOWER THORAX: 2 millimeter nodular density seen within the medial aspect of the right lower lobe. LIVER: Fatty infiltration of the liver. Hepatomegaly. GALLBLADDER AND BILE DUCTS: Contracted gallbladder with cholelithiasis. PANCREAS: 1.5 centimeter fat containing focus/lesion seen near the head of the pancreas as demonstrated on series 3 images 62 through 65. Correlation with a pancreatic protocol CT and/or MR through this region may be helpful for further evaluation if clinically indicated. SPLEEN: Unremarkable. ADRENALS: Unremarkable. No mass. KIDNEYS AND URETERS: Right kidney: Asymmetric prominence of the right kidney which appears somewhat hypertrophied with associated right perinephric fat stranding. These findings are nonspecific however an underlying acute pyelonephritis cannot be excluded on the basis of these images. Correlation with a contrast-enhanced CT scan is recommended for further evaluation clinically indicated. Left Kidney: No calculi or hydronephrosis. VASCULATURE: Unremarkable. No aortic aneurysm. No aortic atherosclerotic calcification or mural plaque present. BOWEL: Unremarkable. No obstruction. No gross mural thickening. Fecal retention in the colon. Under distended sigmoid colon. APPENDIX: Unremarkable. Normal appendix. PERITONEUM: Unremarkable. No free fluid. No free air. LYMPH NODES: Few shotty para-aortic and inguinal lymph nodes. Few shotty mesenteric lymph nodes. BLADDER: Unremarkable. REPRODUCTIVE: Unremarkable. BONES: Degenerative changes in the spine. OTHER FINDINGS: None. IMPRESSION: 1. Asymmetric prominence of the right kidney which appears somewhat hypertrophied with associated right perinephric fat stranding. These findings are nonspecific however an underlying acute pyelonephritis cannot be excluded on the basis of these images. Correlation with a contrast-enhanced CT scan is recommended for further evaluation if clinically indicated. 2. Contracted gallbladder with cholelithiasis. Correlation with right upper quadrant abdominal ultrasound may be helpful if clinically indicated. 3. 1.5 centimeter fat containing focus/lesion seen near the head of the pancreas as demonstrated on series 3 images 62 through 65. Correlation with a pancreatic protocol CT and/or MR through this region may be helpful for further evaluation if clinically indicated. 4. 2 millimeter nodular density seen within the medial aspect of the right lower lobe of the lung. 5. Fecal retention in the colon. A preliminary report was generated at 6:58 p.m. on 10/25/[address] Gasper Bell from [facility].
[2018-10-26] MEDS ORDERED: cefTRIAXone IV 1 gm in Dextros 50 ML IVPB SCH (10:00)
[2018-10-26] MEDS: Enoxaparin 40 mg Syringe SC SCH (10:04)
[2018-10-26] MEDS ORDERED: Potassium Chloride 20 mEq ER Tab PO STA (19:42)
--- NOTE | 2018-10-27 07:42 | CP.PCM.PN ---
Subjective - Date & Time of Evaluation Date of Evaluation: 10/27/18 Time of Evaluation: 07:42 Objective - Vital Signs/Intake and Output Vital Signs (last 24 hours): Temp Pulse Resp BP Pulse Ox 96.8 F L 66 12 120/67 98 10/27/18 06:52 10/27/18 06:52 10/27/18 06:52 10/27/18 06:52 10/27/18 06:52 Intake and Output: 10/27/18 10/27/18 06:59 18:59 Intake Total 1000 Balance 1000 - Medications Medications: Current Medications Enoxaparin Sodium (Lovenox) 40 mg SC DAILY STEPHANI Last Admin: 10/26/18 10:04 Dose: 40 mg Sodium Chloride (Sodium Chloride 0.9%) 1,000 mls @ 100 mls/hr IV .Q10H STEPHANI Last Admin: 10/26/18 22:32 Dose: 100 mls/hr Ceftriaxone Sodium 1 gm/ (Sodium Chloride) 100 mls @ 100 mls/hr IVPB Q12H STEPHANI; Protocol Last Admin: 10/27/18 05:02 Dose: 100 mls/hr Ibuprofen (Motrin Tab) 400 mg PO Q6H PRN PRN Reason: Fever >100.4 F - Labs Labs: 10/26/18 07:19 10/26/18 07:19
[2018-10-27] MEDS: Enoxaparin 40 mg Syringe SC SCH (09:40)
[2018-10-27] MEDS: Sodium Chloride 0.9% 1,000 ML IV SCH (09:45)
[2018-10-27] MEDS ORDERED: Potassium Chloride 20 mEq ER Tab PO ONE (09:56)
[2018-10-27 10:24] VITALS: BP 120/77; PULSE 82; TEMP 99; O2SAT 96
[2018-10-27 11:55] LABS: BASO % 0.7 % (0.0-2.0); EOS % 2.3 % (0.0-4.0); HEMOGLOBIN 11.9 g/dL (11.0-16.0); LYMPH # 1.8 K/uL (1.0-4.3); LYMPH % 31.7 % (20.0-40.0); MEAN CELL VOLUME 87.3 fL (81.0-99.0); MEAN CORPUSCULAR HEMOGLOBIN 28.4 pg (27.0-31.0); MEAN CORPUSCULAR HGB CONC 32.6 g/dL (33.0-37.0); MEAN PLATELET VOLUME 8.8 fL (7.2-11.7); MONO % 15.5 % (0.0-10.0); NEUT # 2.8 K/uL (1.8-7.0); NEUT % 49.8 % (50.0-75.0); RBC 4.17 Mil/uL (3.80-5.20); RED CELL DISTRIBUTION WIDTH 15.1 % (11.5-14.5); WHITE BLOOD COUNT 5.6 K/uL (4.8-10.8)
[2018-10-27 11:56] LABS: EOS # 0.1 K/uL (0.0-0.7); MONO # 0.9 K/uL (0.0-0.8)
[2018-10-27 12:32] LABS: ALB/GLOB RATIO 1.1 (1.0-2.1); ALBUMIN 3.9 g/dL (3.5-5.0); ALT/SGPT 81 U/L (9-52); AST/SGOT 77 U/L (14-36); BLOOD UREA NITROGEN 8 mg/dL (7-17); CALCIUM 8.3 mg/dl (8.6-10.4); GFR NON-AFRICAN AMERICAN > 60
--- NOTE | 2018-10-27 16:09 | CP.PCM.DIS ---
<Ryland Woodard - Last Filed: 10/27/18 16:06> Provider - Provider Date of Admission: 10/25/18 17:08 Attending physician: [place] MD Time Spent in preparation of Discharge (in minutes): 40 Diagnosis - Discharge Diagnosis (1) Pyelonephritis Status: Acute Hospital Course - Lab Results Lab Results: Micro Results 10/25/18 14:10 Blood Blood Culture - Preliminary NO GROWTH AFTER 48 HOURS 10/25/18 16:06 Urine Random Urine Culture - Final Escherichia Coli 10/25/18 16:30 Blood Blood Culture - Preliminary NO GROWTH AFTER 24 HOURS Most Recent Lab Values WBC 5.6 K/uL (4.8-10.8) 10/27/18 11:46 RBC 4.17 Mil/uL (3.80-5.20) 10/27/18 11:46 Hgb 11.9 g/dL (11.0-16.0) 10/27/18 11:46 Hct 36.4 % (34.0-47.0) 10/27/18 11:46 MCV 87.3 fL (81.0-99.0) 10/27/18 11:46 MCH 28.4 pg (27.0-31.0) 10/27/18 11:46 MCHC 32.6 g/dL (33.0-37.0) L 10/27/18 11:46 RDW 15.1 % (11.5-14.5) H 10/27/18 11:46 Plt Count 285 K/uL (130-400) 10/27/18 11:46 MPV 8.8 fL (7.2-11.7) 10/27/18 11:46 Neut % (Auto) 49.8 % (50.0-75.0) L 10/27/18 11:46 Lymph % (Auto) 31.7 % (20.0-40.0) 10/27/18 11:46 [place] % (Auto) 15.5 % (0.0-10.0) H 10/27/18 11:46 Eos % (Auto) 2.3 % (0.0-4.0) 10/27/18 11:46 Baso % (Auto) 0.7 % (0.0-2.0) 10/27/18 11:46 Neut # (Auto) 2.8 K/uL (1.8-7.0) 10/27/18 11:46 Lymph # (Auto) 1.8 K/uL (1.0-4.3) 10/27/18 11:46 [place] # (Auto) 0.9 K/uL (0.0-0.8) H 10/27/18 11:46 Eos # (Auto) 0.1 K/uL (0.0-0.7) 10/27/18 11:46 Baso # (Auto) 0.0 K/uL (0.0-0.2) 10/27/18 11:46 Neutrophils % (Manual) 88 % (50-75) H 10/25/18 15:54 Lymphocytes % (Manual) 5 % (20-40) L 10/25/18 15:54 Monocytes % (Manual) 7 % (0-10) 10/25/18 15:54 Platelet Estimate Normal (NORMAL) 10/25/18 15:54 RBC Morphology Normal 10/25/18 15:54 pO2 63 mm/Hg (30-55) H 10/25/18 15:56 VBG pH 7.45 (7.32-7.43) H 10/25/18 15:56 VBG pCO2 39 mmHg (40-60) L 10/25/18 15:56 VBG HCO3 27.1 mmol/L 10/25/18 15:56 VBG Total CO2 28.3 mmol/L (22-28) H 10/25/18 15:56 VBG O2 Sat (Calc) 94.9 % (40-65) H 10/25/18 15:56 VBG Base Excess 3.0 mmol/L (0.0-2.0) H 10/25/18 15:56 VBG Potassium 3.3 mmol/L (3.6-5.2) L 10/25/18 15:56 Sodium 140.0 mmol/l (132-148) 10/25/18 15:56 Chloride 107.0 mmol/L (98-107) 10/25/18 15:56 Glucose 128 mg/dl (65-105) H 10/25/18 15:56 Lactate 1.9 mmol/L (0.7-2.1) 10/25/18 15:56 Sodium 138 mmol/L (132-148) 10/27/18 11:46 Potassium 4.0 mmol/L (3.6-5.2) 10/27/18 11:46 Chloride 106 mmol/L (98-107) 10/27/18 11:46 Carbon Dioxide 28 mmol/L (22-30) 10/27/18 11:46 Anion Gap 9 (10-20) L 10/27/18 11:46 BUN 8 mg/dL (7-17) 10/27/18 11:46 Creatinine 0.4 mg/dL (0.7-1.2) L 10/27/18 11:46 Est GFR ( Amer) > 60 10/27/18 11:46 Est GFR (Non-Af Amer) > 60 10/27/18 11:46 Random Glucose 94 mg/dL (65-105) 10/27/18 11:46 Hemoglobin A1c 5.9 % (4.2-6.5) 10/25/18 17:16 Calcium 8.3 mg/dl (8.6-10.4) L 10/27/18 11:46 Phosphorus 2.4 mg/dL (2.5-4.5) L 10/27/18 11:46 Magnesium 2.0 mg/dL (1.6-2.3) 10/27/18 11:46 Total Bilirubin 0.3 mg/dL (0.2-1.3) 10/27/18 11:46 AST 77 U/L (14-36) H D 10/27/18 11:46 ALT 81 U/L (9-52) H D 10/27/18 11:46 Alkaline Phosphatase 107 U/L (38-126) 10/27/18 11:46 Troponin I < 0.0120 ng/mL (0.00-0.120) 10/25/18 17:47 Total Protein 7.4 g/dL (6.3-8.3) 10/27/18 11:46 Albumin 3.9 g/dL (3.5-5.0) 10/27/18 11:46 Globulin 3.5 gm/dL (2.2-3.9) 10/27/18 11:46 Albumin/Globulin Ratio 1.1 (1.0-2.1) 10/27/18 11:46 TSH 3rd Generation 0.79 mIU/L (0.46-4.68) 10/25/18 17:47 Venous Blood Potassium 3.3 mmol/L (3.6-5.2) L 10/25/18 15:56 Urine Color Yellow (YELLOW) 10/25/18 16:06 Urine Clarity Hazy (Clear) 10/25/18 16:06 Urine pH 6.0 (5.0-8.0) 10/25/18 16:06 Ur Specific [place] 1.008 (1.003-1.030) 10/25/18 16:06 Urine Protein Negative mg/dL (NEGATIVE) 10/25/18 16:06 Urine Glucose (UA) Normal mg/dL (Normal) 10/25/18 16:06 Urine Ketones Negative mg/dL (NEGATIVE) 10/25/18 16:06 Urine Blood 2+ (NEGATIVE) H 10/25/18 16:06 Urine Nitrate Positive (NEGATIVE) H 10/25/18 16:06 Urine Bilirubin Negative (NEGATIVE) 10/25/18 16:06 Urine Urobilinogen Normal mg/dL (0.2-1.0) 10/25/18 16:06 Ur Leukocyte Esterase 2+ Marlon/uL (Negative) H 10/25/18 16:06 Urine WBC (Auto) 88 /hpf (0-5) H 10/25/18 16:06 Urine RBC (Auto) 14 /hpf (0-3) H 10/25/18 16:06 Ur Squamous Epith Cells < 1 /hpf (0-5) 10/25/18 16:06 Urine Bacteria Many (<OCC) H 10/25/18 16:06 - Hospital Course Hospital Course: HPI: This is a 58 year old female, originally from [place], with past medical history of obesity and cholecystitis, presenting to ER with chief complaint of fever and right flank pain. Patient is Filipino-speaking only. Patient is present with her partner who provides translation. She reports that she came to [facility] ER on 10/16 and was diagnosed with urinary tract infection. She was given scripts for macrobid and tramadol, but when patient went to fill it, was given sorto of 80 dollars and could not get it because it was too expensive. All this time, patient was experiencing dysuria and patient at about noon today started experiencing subjective fevers and right flank and abdominal pain. Patient came by bus with partner for appointment at [facility] in [facility]. At that time, vitals were taken which showed HR of 140 and fever. Patient was sent up from [facility] to ER. She denies chest pain, shortness of breath, headache. During course of admission: Patient was afebrile on admission, but blood cell count was elevated on admission at 17.6. UA obtained was positive for urinary tract infection and cultures were obtained. Patient was started empirically on rocephin 1 gm IV daily. Patient did spike fevers during hospital course, with Tmax of 102.4, and was given Motrin as needed for fevers in lieu of acetaminophen given mildly elevated liver function tests. CT abdomen/pelvis was obtained without contrast, as patient did not want IV contrast administered, as patient states she gets "nervous" with contrast. CT imaging read, per Radiology, are as noted: somewhat hypertrophied asymmetric right kidney with perinephric fat stranding. Correlation with contrast-enhanced CT is recommended. Contracted gallbladder with cholelithiasis. 1.5 cm fat containing lesion near head of pancreas. 2 mm nodular denisty within medial aspect of RLL lung. Fecal retention in colon. It should be noted patient is a known patient of hospital clinic and has history of cholecystectomy. Reading could be due to lack of contrast present for exam. Cultures returned positive for E.Coli during hospital course. She remained afebrile and leukocytosis normalized with improvement of overall symptoms. Patient is medically stable for discharge to home, as per Dr. Munson. Patient is instructed to continue all home medications as currently prescribed. Patient is instructed to take the following antibiotic as prescribed for treatment of her kidney infection. Ciprofloxacin 500 mg PO, two times per day for a total of 7 days Please follow up with [facility] within 1 week of discharge for further monitoring and continued care. Please call to schedule an appointment. [facility] [place] [phone] If symptoms worsen or persist, please return to ED immediately. The following is a summary of hospital course. For full detail, please refer to EMR. - Date & Time of H&P Date of H&P: 10/27/18 Time of H&P: 16:07 Discharge Exam - Head Exam Head Exam: ATRAUMATIC, NORMAL INSPECTION, NORMOCEPHALIC - Eye Exam Eye Exam: EOMI, Normal appearance Pupil Exam: NORMAL ACCOMODATION - ENT Exam ENT Exam: Mucous Membranes Moist, Normal Exam - Neck Exam Neck exam: Full Rom, Normal Inspection - Respiratory Exam Respiratory Exam: Clear to PA & Lateral, NORMAL BREATHING PATTERN, UNREMARKABLE. absent: Accessory Muscle Use, Rales, Rhonchi, Wheezes, Respiratory Distress, Stridor - Cardiovascular Exam Cardiovascular Exam: REGULAR RHYTHM, +S1, +S2 - GI/Abdominal Exam GI & Abdominal Exam: Normal Bowel Sounds, Soft, Tenderness (mild suprapubic TTP), Unremarkable. absent: Distended, Firm, Guarding, Hernia - Extremities Exam Extremities exam: normal capillary refill, normal inspection, pedal pulses present - Back Exam Back exam: CVA tenderness (R) (mild), NORMAL INSPECTION - Neurological Exam Neurological exam: Alert, Oriented x3 - Psychiatric Exam Psychiatric exam: Normal Affect, Normal Mood - Skin Skin Exam: Dry, Intact, Normal Color, Warm Discharge Plan - Discharge Medications Prescriptions: Ciprofloxacin [Cipro] 500 mg PO BID #14 tab - Follow Up Plan Condition: GOOD Disposition: HOME/ ROUTINE Instructions: Ciprofloxacin (Systemic), Urinary Tract Infection, Adult (DC) Additional Instructions: Patient is medically stable for discharge to home, as per Dr. Munson. Patient is instructed to continue all home medications as currently prescribed. Patient is instructed to take the following antibiotic as prescribed for treatment of her kidney infection. Ciprofloxacin 500 mg PO, two times per day for a total of 7 days Please follow up with [facility] within 1 week of discharge for further monitoring and continued care. Please call to schedule an appointment. [address] [address] If symptoms worsen or persist, please return to ED immediately. El paciente se encuentra mdicamente estable para el isabel hospitalaria, segn el Dr. Munson. Se instruye al paciente para que contine con todos los medicamentos en el hogar segn lo prescrito actualmente. Se le indica a la paciente que tome los siguientes antibiticos segn lo prescrito para el tratamiento de hook infeccin renal. Ciprofloxacina 500 mg PO, dos veces al da lani un total de 7 de paz Realice un seguimiento con [facility] en [facility] dentro de la primera semana del isabel hospitalaria para un seguimiento y joelle atencin continuada. Favor de llamar para hacer joelle yariel. [facility] [place] [address] Telfono: [phone] Si los sntomas empeoran o persisten, regrese a la DE de inmediato. Referrals: [facility] [Outside] - 11/03/18 3:00 pm <Mauri Munson - Last Filed: 10/27/18 18:21> Provider - Provider Date of Admission: 10/25/18 17:08 Attending physician: [place] MD Hospital Course - Lab Results Lab Results: Micro Results 10/25/18 14:10 Blood Blood Culture - Preliminary NO GROWTH AFTER 48 HOURS 10/25/18 16:06 Urine Random Urine Culture - Final Escherichia Coli 10/25/18 16:30 Blood Blood Culture - Preliminary NO GROWTH AFTER 24 HOURS Most Recent Lab Values WBC 5.6 K/uL (4.8-10.8) 10/27/18 11:46 RBC 4.17 Mil/uL (3.80-5.20) 10/27/18 11:46 Hgb 11.9 g/dL (11.0-16.0) 10/27/18 11:46 Hct 36.4 % (34.0-47.0) 10/27/18 11:46 MCV 87.3 fL (81.0-99.0) 10/27/18 11:46 MCH 28.4 pg (27.0-31.0) 10/27/18 11:46 MCHC 32.6 g/dL (33.0-37.0) L 10/27/18 11:46 RDW 15.1 % (11.5-14.5) H 10/27/18 11:46 Plt Count 285 K/uL (130-400) 10/27/18 11:46 MPV 8.8 fL (7.2-11.7) 10/27/18 11:46 Neut % (Auto) 49.8 % (50.0-75.0) L 10/27/18 11:46 Lymph % (Auto) 31.7 % (20.0-40.0) 10/27/18 11:46 [place] % (Auto) 15.5 % (0.0-10.0) H 10/27/18 11:46 Eos % (Auto) 2.3 % (0.0-4.0) 10/27/18 11:46 Baso % (Auto) 0.7 % (0.0-2.0) 10/27/18 11:46 Neut # (Auto) 2.8 K/uL (1.8-7.0) 10/27/18 11:46 Lymph # (Auto) 1.8 K/uL (1.0-4.3) 10/27/18 11:46 [place] # (Auto) 0.9 K/uL (0.0-0.8) H 10/27/18 11:46 Eos # (Auto) 0.1 K/uL (0.0-0.7) 10/27/18 11:46 Baso # (Auto) 0.0 K/uL (0.0-0.2) 10/27/18 11:46 Neutrophils % (Manual) 88 % (50-75) H 10/25/18 15:54 Lymphocytes % (Manual) 5 % (20-40) L 10/25/18 15:54 Monocytes % (Manual) 7 % (0-10) 10/25/18 15:54 Platelet Estimate Normal (NORMAL) 10/25/18 15:54 RBC Morphology Normal 10/25/18 15:54 pO2 63 mm/Hg (30-55) H 10/25/18 15:56 VBG pH 7.45 (7.32-7.43) H 10/25/18 15:56 VBG pCO2 39 mmHg (40-60) L 10/25/18 15:56 VBG HCO3 27.1 mmol/L 10/25/18 15:56 VBG Total CO2 28.3 mmol/L (22-28) H 10/25/18 15:56 VBG O2 Sat (Calc) 94.9 % (40-65) H 10/25/18 15:56 VBG Base Excess 3.0 mmol/L (0.0-2.0) H 10/25/18 15:56 VBG Potassium 3.3 mmol/L (3.6-5.2) L 10/25/18 15:56 Sodium 140.0 mmol/l (132-148) 10/25/18 15:56 Chloride 107.0 mmol/L (98-107) 10/25/18 15:56 Glucose 128 mg/dl (65-105) H 10/25/18 15:56 Lactate 1.9 mmol/L (0.7-2.1) 10/25/18 15:56 Sodium 138 mmol/L (132-148) 10/27/18 11:46 Potassium 4.0 mmol/L (3.6-5.2) 10/27/18 11:46 Chloride 106 mmol/L (98-107) 10/27/18 11:46 Carbon Dioxide 28 mmol/L (22-30) 10/27/18 11:46 Anion Gap 9 (10-20) L 10/27/18 11:46 BUN 8 mg/dL (7-17) 10/27/18 11:46 Creatinine 0.4 mg/dL (0.7-1.2) L 10/27/18 11:46 Est GFR ( Amer) > 60 10/27/18 11:46 Est GFR (Non-Af Amer) > 60 10/27/18 11:46 Random Glucose 94 mg/dL (65-105) 10/27/18 11:46 Hemoglobin A1c 5.9 % (4.2-6.5) 10/25/18 17:16 Calcium 8.3 mg/dl (8.6-10.4) L 10/27/18 11:46 Phosphorus 2.4 mg/dL (2.5-4.5) L 10/27/18 11:46 Magnesium 2.0 mg/dL (1.6-2.3) 10/27/18 11:46 Total Bilirubin 0.3 mg/dL (0.2-1.3) 10/27/18 11:46 AST 77 U/L (14-36) H D 10/27/18 11:46 ALT 81 U/L (9-52) H D 10/27/18 11:46 Alkaline Phosphatase 107 U/L (38-126) 10/27/18 11:46 Troponin I < 0.0120 ng/mL (0.00-0.120) 10/25/18 17:47 Total Protein 7.4 g/dL (6.3-8.3) 10/27/18 11:46 Albumin 3.9 g/dL (3.5-5.0) 10/27/18 11:46 Globulin 3.5 gm/dL (2.2-3.9) 10/27/18 11:46 Albumin/Globulin Ratio 1.1 (1.0-2.1) 10/27/18 11:46 TSH 3rd Generation 0.79 mIU/L (0.46-4.68) 10/25/18 17:47 Venous Blood Potassium 3.3 mmol/L (3.6-5.2) L 10/25/18 15:56 Urine Color Yellow (YELLOW) 10/25/18 16:06 Urine Clarity Hazy (Clear) 10/25/18 16:06 Urine pH 6.0 (5.0-8.0) 10/25/18 16:06 Ur Specific [place] 1.008 (1.003-1.030) 10/25/18 16:06 Urine Protein Negative mg/dL (NEGATIVE) 10/25/18 16:06 Urine Glucose (UA) Normal mg/dL (Normal) 10/25/18 16:06 Urine Ketones Negative mg/dL (NEGATIVE) 10/25/18 16:06 Urine Blood 2+ (NEGATIVE) H 10/25/18 16:06 Urine Nitrate Positive (NEGATIVE) H 10/25/18 16:06 Urine Bilirubin Negative (NEGATIVE) 10/25/18 16:06 Urine Urobilinogen Normal mg/dL (0.2-1.0) 10/25/18 16:06 Ur Leukocyte Esterase 2+ Marlon/uL (Negative) H 10/25/18 16:06 Urine WBC (Auto) 88 /hpf (0-5) H 10/25/18 16:06 Urine RBC (Auto) 14 /hpf (0-3) H 10/25/18 16:06 Ur Squamous Epith Cells < 1 /hpf (0-5) 10/25/18 16:06 Urine Bacteria Many (<OCC) H 10/25/18 16:06 Attending/Attestation - Attestation I have personally seen and examined this patient.: Yes I have fully participated in the care of the patient.: Yes I have reviewed all pertinent clinical information, including history, physical exam and plan: Yes Notes (Text): 10/27/18 18:19 Medical attending: Patient was seen and examined by me. Agree with the above note by the resident The patient was not in any acute distress when I came and saw the patient The patient was with family member at bedside She reported her urine was no longer painful and now no longer foul smelling The WBC has decreased to normal as well The urine culture showed that there was E coli with broadsensitivity Will send home with PO abx that she will need to continue Mauri Munson
== END 2018-10-27 14:37 | disposition home or self-care (01) | DRG 463 ==
LOC: C.ER 15:01 → C.9E 17:08 → C.5S 20:42
PROVIDERS: ADMIT Internal Medicine; ATTEND Internal Medicine
DX: N10 Acute pyelonephritis (principal); E87.6 Hypokalemia; M19.90 Unspecified osteoarthritis, unspecified site; Z90.49 Acquired absence of other specified parts of digestive tract

== ENCOUNTER 2018-12-08 15:43 | Emergency (ER) | payer OTHER ==
[2018-12-08 15:43] VITALS: BMI 36.1
[2018-12-08 15:59] VITALS: BP 123/81; PULSE 120; RESP 20; TEMP 99.5; O2SAT 95
--- NOTE | 2018-12-08 18:34 | C.PDOC ---
History Of Present Illness 58 y/o female presents to the ER complaining of sore throat which has been present for the past 2-3 days. Patient states that she is able to tolerate PO. Patient reports that she did not take any medications for the pain. Denies having fever,chills, cough, CP,SOB,nausea,vomiting, and abdominal pain. Time Seen by Provider: 12/08/18 16:02 Chief Complaint (Nursing): ENT Problem History Per: Patient History/Exam Limitations: no limitations Onset/Duration Of Symptoms: Days Current Symptoms Are (Timing): Still Present Severity: Moderate Past Medical History Reviewed: Historical Data, Nursing Documentation, Vital Signs Vital Signs: Last Vital Signs Temp 99.5 F 12/08/18 15:57 Pulse 120 H 12/08/18 15:57 Resp 20 12/08/18 15:57 BP 123/81 12/08/18 15:57 Pulse Ox 95 12/08/18 15:57 - Medical History PMH: Arthritis, Bronchitis Denies: Chronic Kidney Disease Surgical History: Cholecystectomy - [facility] Procedures (07/19/18) CONTROL BLEEDING IN PERITONEAL CAVITY, PERC ENDO APPROACH (07/19/18) RELEASE DUODENUM, PERCUTANEOUS ENDOSCOPIC APPROACH (07/19/18) RELEASE LARGE INTESTINE, PERCUTANEOUS ENDOSCOPIC APPROACH (07/19/18) RESECTION OF GALLBLADDER, PERCUTANEOUS ENDOSCOPIC APPROACH (07/19/18) ROBOTIC ASSISTED PROCEDURE OF TRUNK, PERC ENDO APPROACH (07/19/18) Family History: States: No Known Family Hx - Social History Hx Alcohol Use: No Hx Substance Use: No - Immunization History Hx Tetanus Toxoid Vaccination: Yes (2015) Hx Influenza Vaccination: No Hx Pneumococcal Vaccination: Yes Review Of Systems Except As Marked, All Systems Reviewed And Found Negative. Constitutional: Negative for: Fever, Chills ENT: Positive for: Throat Pain Cardiovascular: Negative for: Chest Pain Respiratory: Negative for: Cough, Shortness of Breath Physical Exam - Physical Exam Appears: Non-toxic, No Acute Distress Skin: Normal Color, Warm, Dry Head: Atraumatic, Normacephalic Eye(s): bilateral: Normal Inspection Ear(s): Bilateral: Normal Nose: Normal Oral Mucosa: Moist Throat: Erythema (tonsillar erythema), Exudate (exudates on right tonsils) Neck: Supple Chest: Symmetrical Cardiovascular: Rhythm Regular Respiratory: Normal Breath Sounds, No Rales, No Rhonchi, No Wheezing Neurological/Psych: Oriented x3, Normal Speech ED Course And Treatment O2 Sat by Pulse Oximetry: 95 (RA) Pulse Ox Interpretation: Normal Disposition - Disposition Referrals: Scottie Parrish, [Non-Staff] - Disposition: HOME/ ROUTINE Disposition Time: 16:15 Condition: GOOD Additional Instructions: DAMIR WATERMAN, thank you for letting us take care of you today. The emergency medical care you received today was directed at your acute symptoms. If you were prescribed any medication, please fill it and take as directed. It may take several days for your symptoms to resolve. Return to the Emergency Department if your symptoms worsen, do not improve, or if you have any other problems. Please contact your doctor or call one of the physicians/clinics you have been referred to that are listed on the Patient Visit Information form that is included in your discharge packet. Bring any paperwork you were given at discharge with you along with any medications you are taking to your follow up visit. Our treatment cannot replace ongoing medical care by a primary care provider outside of the emergency department. Thank you for allowing the [facility] team to be part of your care today. Follow up with your primary care doctor in 3-5 days for re-evaluation and further management. DAMIR WATERMAN, korin por dejarnos cuidar de ti hoy. La atencin mdica de emergencia que recibi hoy se dirigi a charu sntomas agudos. Si le recetaron algn medicamento, llnelo y tmelo segn las indicaciones. Los sntomas pueden tardar varios de paz en resolverse. Regrese al Departamento de Emergencias si charu sntomas empeoran, no mejoran o si tiene otros problemas. Comunquese con hook mdico o llame a hever de los mdicos / clnicas a los que go sido referido que figuran en el formulario de Informacin de visita al paciente que se incluye en hook paquete de isabel. Lleve todos los documentos que recibi al momento del isabel junto con los medicamentos que est tomando para hook visita de seguimiento. Nuestro tratamiento no puede reemplazar la atencin mdica continua por parte de un proveedor de atencin primaria fuera del departamento de emergencias. Korin por permitir que el equipo de [facility] sea parte de hook atencin hoy. Suri un seguimiento con hook mdico de atencin primaria en 3 a 5 de paz para joelle reevaluacin y manejo adicional. Prescriptions: Amoxicillin 875 mg PO BID #14 tablet Ibuprofen [Motrin] 600 mg PO Q6 PRN #20 tab PRN Reason: Pain, Moderate (4-7) Instructions: Sore Throat, Adult (DC) Forms: [employer] (Luxembourger), [employer] (Turkmen) Print Language: DIVEHI - Clinical Impression Clinical Impression: Pharyngitis - Scribe Statement The provider has reviewed the documentation as recorded by the Scribe Summshannon Dahl Provider Attestation: All medical record entries made by the Scribe were at my direction and personally dictated by me. I have reviewed the chart and agree that the record accurately reflects my personal performance of the history, physical exam, medical decision making, and the department course for this patient. I have also personally directed, reviewed, and agree with the discharge instructions and disposition.
== END 2018-12-08 16:27 | disposition home or self-care (01) ==
LOC: C.ER 15:43
DX: J02.9 Acute pharyngitis, unspecified (principal)